=== PATIENT | male | born 1940 | race African-American/Black ===

== ENCOUNTER 2016-05-26 05:07 | Day surgery (SDC) | payer OTHER ==
[~2016-05-26] VITALS: Ht 170.2 cm; Wt 84.4 kg
[2016-05-26 05:59] LABS: BASOPHILS 0.5 % (0.0-2.0); EOSINOPHILS 5.7 % (0-7); HEMOGLOBIN 13.2 g/dL (13.5-17.5); IMMATURE GRANULOCYTES 0.1 % (0-5); LYMPHOCYTES 29.9 % (15-50); MCH 28.4 pg (26.0-34.0); MCHC 33.8 g/dL (31.0-37.0); MCV 84.1 fL (80.0-100.0); MEAN PLATELET VOLUME 10.3 fL (7.4-10.4); NEUTROPHILS 52.8 % (40-80); PLATELET COUNT 278 10x3/uL (130-400); RBC 4.64 10x6/uL (4.20-6.10); RDW 13.4 % (11.5-14.5); WBC 8.7 10x3/uL (4.8-10.8)
[2016-05-26 06:44] LABS: ANION GAP 13.3 mmol/L (8-16); CALCIUM 9.4 mg/dL (8.5-10.1); CARBON DIOXIDE 23.9 mmol/L (21.0-32.0); CREATININE - SERUM 1.8 mg/dL (0.6-1.3); POTASSIUM - SERUM 4.2 mmol/L (3.5-5.1)
[2016-05-26 07:03] VITALS: BP 167/97; Ht 170.2 cm; Wt 84.4 kg
[2016-05-26] MEDS ORDERED: LIPITOR40 MG PO (07:05)
[2016-05-26] MEDS ORDERED: BAYER CHEWABLE81 MG PO (07:05)
[2016-05-26] MEDS ORDERED: HUMULIN 70100 UNIT/1 SC (07:06)
[2016-05-26] MEDS ORDERED: COREG 3.1253.125 MG PO (07:06)
[2016-05-26] MEDS ORDERED: SYNTHROID50 MCG PO (07:06)
[2016-05-26] MEDS ORDERED: LISINOPRIL2.5 MG PO (07:07)
[2016-05-26 07:30] LABS: APTT 30.8 SECONDS (22.8-39.4); INR 1.12 (0.85-1.17); PROTIME 14.3 SECONDS (11.6-15.0)
--- NOTE | 2016-05-26 12:06 | NUR ---
IV DC WITH CATHER TIP INTACT
--- NOTE | 2016-05-26 12:09 | NUR ---
CT SCAN ERIKA DUE TO CR 1.9 PER ARABELLA
--- NOTE | 2016-05-28 09:40 | OP ---
PATIENT NAME: KAYLIE LONG MEDICAL RECORD: [id number] :42 LOCATION:[facility] ADMISSION DATE: SURGEON: GEORGETTE FRANCO MD DATE OF OPERATION: 05/26/2016 PREOPERATIVE DIAGNOSIS: Gangrene, right great toe. POSTOPERATIVE DIAGNOSIS: Gangrene, right great toe with osteomyelitis. PROCEDURE: Partial amputation of right great toe. SURGEON: Georgette Franco MD. FARMWORKER P[employer]LET FARM: None. BLOOD LOSS: Minimal. ANESTHESIA: General. COMPLICATIONS: None. The risks, possible complications and alternatives to procedure were explained to the patient. He elects to proceed. OPERATIVE FINDINGS: Black eschar. I removed the toenail. I removed the eschar. There is underlying soft fragmented bone indicating osteomyelitis. I removed all the osteomyelitic bone and I was able to rongeur back to good healthy bone, so I do not think the patient needs to be on IV antibiotics for osteomyelitis as all that bone has been removed. There was almost no bleeding during the procedure indicating a very poor arterial inflow. The patient is going to undergo bilateral lower extremity arterial duplexes before dismissal today, as well as CTA with runoffs. There was 1 dot of pus that was identified under the black eschar cap. This was cultured. OPERATIVE COURSE: The patient was conveyed to the operating room electively on 05/26/2016. General anesthesia was induced by the anesthesia staff. The right foot was sterilely prepped and draped. The debridement was carried out utilizing scalpel, as well as rongeur. I removed the toenail with a rongeur. I used a scalpel to excise the eschar cap. Soft fragmented bone was identified underneath this with some pus indicating osteomyelitis. This was rongeured back to the DIP joint. I then cauterized the end of the proximal phalanx in order to prevent it from producing synovial fluid. I ensured that all of the fragmented bone had been rongeured. I excised some additional skin. There was very little bleeding. I then divided the flexor tendon. The wound was then packed with saline wet to dry dressing. The patient does not need to see me in the office unless he develops complication related to this operative procedure. I will be rounding out of the skilled nursing and I can see him then on rounds. TRANSINT:[id number] Voice Confirmation ID: [id number] DOCUMENT ID: [id number] OPERATIVE REPORT [id number] KAYLIE LONG ROBERT MD at 0940 CC: GEORGETTE GODOY MD, ISAIAH PULIDO MD, RAYNE GARAY MD and [id number] L DICTATION DATE: 05/26/16 1040 SERVICES EXECUTIVE: 05/26/161911 [facility] 05/26/16 [place] [id number] [place] [id number]
--- NOTE | 2016-05-28 09:40 | HP ---
PATIENT: KAYLIE LONG MEDICAL RECORD: [id number] ACCOUNT: [id number] LOCATION:[facility] : 42 ADMISSION DATE: 05/26/16 HISTORY AND PHYSICAL EXAMINATION CHIEF COMPLAINT: Gangrene, right great toe. HISTORY OF PRESENT ILLNESS: The patient is to undergo debridement of the right great toe. I am going to try to avoid amputation of the right great toe, although this is a possibility. The risks, possible complications and alternatives to procedure were explained to the patient. He elects to proceed. There has been no foul odor. No exudate. No spreading erythema. This is on the tip of his toe and involves the plantar surface of the toe and is dry from eschar. There was no softness. The patient needs an arterial study as well. He will undergo CTA with runoffs well as lower extremity arterial Dopplers with ABIs while here in the hospital as an outpatient. The risks, possible complications and alternatives to procedure were explained to the patient. He elects to proceed. PAST MEDICAL AND SURGICAL HISTORY: 1. Hypotension. 2. Hypertension. 3. Insulin-dependent diabetes mellitus. 4. Hypothyroidism. HOME MEDICINES: Lipitor, Coreg, lisinopril as well as insulin, and levothyroxine. ALLERGIES: No known drug allergies. REVIEW OF SYSTEMS: No CVA or seizures. No renal disease. Positive for hepatitis C. PHYSICAL EXAMINATION: GENERAL: The patient does not appear acutely ill. He does not appear chronically ill. VITAL SIGNS: Reviewed. HEAD: External ears appear normal. EYES: Extraocular movements are intact. NECK: Trachea is midline. CHEST: No intercostal retractions. PULMONARY: Nonlabored, no stridor. ABDOMEN: No peritonitis. EXTREMITIES: Gangrene of the right great toe. BACK: No thoracic kyphosis. LYMPHATICS: No lymphangitic streaking of the exposed extremities. IMPRESSION: Gangrene, right great toe. PLAN: Vascular workup as described above. Debridement of the right great toe. TRANSINT:[id number] Voice Confirmation ID: [id number] DOCUMENT ID: [id number] HISTORY AND PHYSICAL [id number] KAYLIE LONG GEORGETTE RIZO MD at 0940 CC: GEORGETTE GODOY MD, ISAIAH PULIDO MD, RAYNE GARAY MD and [id number] Kearns DICTATION DATE: 05/26/1605 APPLICATIONS ENGINEER MANUFACTURING: 05/26/16 1016 [facility] 05/26/16 [place] [id number] [place] [id number]
== END 2016-05-26 12:15 | disposition home or self-care (01) ==
LOC: D.OPS 05:07
PROVIDERS: Anesthesiology
DX: M86.8X7 Other osteomyelitis, ankle and foot (principal); I96 Gangrene, not elsewhere classified; I95.9 Hypotension, unspecified; I10 Essential (primary) hypertension; E11.9 Type 2 diabetes mellitus without complications; E03.9 Hypothyroidism, unspecified; Z79.4 Long term (current) use of insulin; Z79.899 Other long term (current) drug therapy; B19.20 Unspecified viral hepatitis C without hepatic coma

== ENCOUNTER 2016-06-16 09:47 | Inpatient (IN) | payer MEDICAID ==
[~2016-06-16 09:47] MED LIST: BAYER CHEWABLE81 MG PO; COREG 3.1253.125 MG PO; HUMULIN 70100 UNIT/1 SC; LIPITOR40 MG PO; LISINOPRIL2.5 MG PO; SYNTHROID50 MCG PO
[2016-06-16 10:39] LABS: BASOPHILS 0.2 % (0.0-2.0); EOSINOPHILS 4.8 % (0-7); HEMATOCRIT 32.5 % (42.0-54.0); HEMOGLOBIN 10.5 g/dL (13.5-17.5); IMMATURE GRANULOCYTES 0.3 % (0-5); LYMPHOCYTES 20.3 % (15-50); MCH 27.1 pg (26.0-34.0); MCHC 32.3 g/dL (31.0-37.0); MCV 83.8 fL (80.0-100.0); MONOCYTES 14.3 % (2-11); NEUTROPHILS 60.1 % (40-80); PLATELET COUNT 322 10x3/uL (130-400); RBC 3.88 10x6/uL (4.20-6.10); RDW 13.4 % (11.5-14.5); WBC 10.3 10x3/uL (4.8-10.8)
[2016-06-16 10:50] LABS: ALBUMIN 2.5 g/dL (3.4-5.0); ANION GAP 12.7 mmol/L (8-16); BILIRUBIN - TOTAL 0.36 mg/dL (0.2-1.3); C-REACTIVE PROTEIN 2.9 mg/dL (0.0-0.9); CALCIUM 9.2 mg/dL (8.5-10.1); CARBON DIOXIDE 24.9 mmol/L (21.0-32.0); CREATININE - SERUM 1.6 mg/dL (0.6-1.3); POTASSIUM - SERUM 4.6 mmol/L (3.5-5.1); PROTEIN - SERUM 8.4 g/dL (6.4-8.2)
[2016-06-17 05:30] LABS: BASOPHILS 0.2 % (0.0-2.0); EOSINOPHILS 3.3 % (0-7); HEMATOCRIT 32.3 % (42.0-54.0); HEMOGLOBIN 10.7 g/dL (13.5-17.5); IMMATURE GRANULOCYTES 0.2 % (0-5); MCH 27.3 pg (26.0-34.0); MCHC 33.1 g/dL (31.0-37.0); MCV 82.4 fL (80.0-100.0); MEAN PLATELET VOLUME 9.7 fL (7.4-10.4); NEUTROPHILS 55.3 % (40-80); PLATELET COUNT 367 10x3/uL (130-400); RBC 3.92 10x6/uL (4.20-6.10); RDW 13.3 % (11.5-14.5); WBC 12.1 10x3/uL (4.8-10.8)
[2016-06-17 05:49] LABS: ALBUMIN 2.4 g/dL (3.4-5.0); ANION GAP 13.9 mmol/L (8-16); BILIRUBIN - TOTAL 0.37 mg/dL (0.2-1.3); CALCIUM 9.2 mg/dL (8.5-10.1); CARBON DIOXIDE 25.1 mmol/L (21.0-32.0); CREATININE - SERUM 1.5 mg/dL (0.6-1.3); PROTEIN - SERUM 8.5 g/dL (6.4-8.2); THYROID STIMULATING HORMONE 3.35 uIU/mL (0.36-3.74)
[2016-06-18 06:17] LABS: BASOPHILS 0.2 % (0.0-2.0); EOSINOPHILS 4.7 % (0-7); HEMATOCRIT 33.1 % (42.0-54.0); HEMOGLOBIN 10.9 g/dL (13.5-17.5); IMMATURE GRANULOCYTES 0.4 % (0-5); MCH 27.7 pg (26.0-34.0); MCHC 32.9 g/dL (31.0-37.0); MEAN PLATELET VOLUME 9.9 fL (7.4-10.4); MONOCYTES 13.5 % (2-11); NEUTROPHILS 63.2 % (40-80); PLATELET COUNT 363 10x3/uL (130-400); RBC 3.94 10x6/uL (4.20-6.10); RDW 13.3 % (11.5-14.5); WBC 11.1 10x3/uL (4.8-10.8)
[2016-06-18 06:40] LABS: ALBUMIN 2.4 g/dL (3.4-5.0); BILIRUBIN - TOTAL 0.4 mg/dL (0.2-1.3); CREATININE - SERUM 1.8 mg/dL (0.6-1.3); PROTEIN - SERUM 8.7 g/dL (6.4-8.2)
[2016-06-18 07:45] LABS: APTT 40.2 SECONDS (22.8-39.4); INR 1.21 (0.85-1.17); PROTIME 15.2 SECONDS (11.6-15.0)
[2016-06-19 04:56] LABS: BASOPHILS 0.2 % (0-2); EOSINOPHILS 5.2 % (0-7); HEMOGLOBIN 9.9 g/dL (13.5-17.5); IMMATURE GRANULOCYTES 0.2 % (0-5); MCH 27.7 pg (26.0-34.0); MCV 83.8 fL (80.0-100.0); MEAN PLATELET VOLUME 9.6 fL (7.4-10.4); MONOCYTES 14.7 % (2-11); NEUTROPHILS 59.7 % (40-80); PLATELET COUNT 313 10x3/uL (130-400); RBC 3.58 10x6/uL (4.20-6.10); RDW 13.5 % (11.5-14.5); WBC 12.3 10x3/uL (4.8-10.8)
[2016-06-19 05:26] LABS: ALBUMIN 2.2 g/dL (3.4-5.0); ANION GAP 8.9 mmol/L (8-16); BILIRUBIN - TOTAL 0.5 mg/dL (0.2-1.3); CALCIUM 9.3 mg/dL (8.5-10.1); CARBON DIOXIDE 31.5 mmol/L (21.0-32.0); CREATININE - SERUM 1.8 mg/dL (0.6-1.3); POTASSIUM - SERUM 4.4 mmol/L (3.5-5.1); PROTEIN - SERUM 8.1 g/dL (6.4-8.2)
[2016-06-20 04:36] LABS: BASOPHILS 0.2 % (0-2); EOSINOPHILS 3.7 % (0-7); HEMATOCRIT 28.8 % (42.0-54.0); HEMOGLOBIN 9.3 g/dL (13.5-17.5); IMMATURE GRANULOCYTES 0.4 % (0-5); LYMPHOCYTES 21.8 % (15-50); MCH 27.1 pg (26.0-34.0); MCHC 32.3 g/dL (31.0-37.0); MEAN PLATELET VOLUME 9.5 fL (7.4-10.4); MONOCYTES 15.3 % (2-11); NEUTROPHILS 58.6 % (40-80); PLATELET COUNT 298 10x3/uL (130-400); RBC 3.43 10x6/uL (4.20-6.10); RDW 13.7 % (11.5-14.5); WBC 10.7 10x3/uL (4.8-10.8)
[2016-06-20 05:17] LABS: ANION GAP 12.3 mmol/L (8-16); BILIRUBIN - TOTAL 0.38 mg/dL (0.2-1.3); CALCIUM 8.2 mg/dL (8.5-10.1); CARBON DIOXIDE 25.5 mmol/L (21.0-32.0); POTASSIUM - SERUM 3.8 mmol/L (3.5-5.1); PROTEIN - SERUM 7.7 g/dL (6.4-8.2)
[2016-06-21 06:01] LABS: BASOPHILS 0.2 % (0-2); HEMATOCRIT 28.3 % (42.0-54.0); HEMOGLOBIN 9.1 g/dL (13.5-17.5); IMMATURE GRANULOCYTES 0.2 % (0-5); LYMPHOCYTES 23.7 % (15-50); MCHC 32.2 g/dL (31.0-37.0); MEAN PLATELET VOLUME 9.7 fL (7.4-10.4); MONOCYTES 14.7 % (2-11); NEUTROPHILS 55.2 % (40-80); PLATELET COUNT 321 10x3/uL (130-400); RBC 3.37 10x6/uL (4.20-6.10); RDW 13.6 % (11.5-14.5); WBC 9.7 10x3/uL (4.8-10.8)
[2016-06-21 06:09] LABS: HEMOGLOBIN A1C 9.1 % (4.8-6.0)
[2016-06-21 07:00] LABS: ALBUMIN 2.1 g/dL (3.4-5.0); ANION GAP 13.6 mmol/L (8-16); BILIRUBIN - TOTAL 0.36 mg/dL (0.2-1.3); CALCIUM 8.7 mg/dL (8.5-10.1); CREATININE - SERUM 1.8 mg/dL (0.6-1.3); POTASSIUM - SERUM 3.6 mmol/L (3.5-5.1); VANCOMYCIN - RANDOM 20.8 ug/mL (10.0-20.0)
[2016-06-21 07:54] LABS: APPEARANCE CLEAR (CLEAR); BACTERIA NONE SEEN /hpf (NONE SEEN); BILIRUBIN NEGATIVE (NEGATIVE); COLOR YELLOW (YELLOW); EPITHELIAL CELLS RARE /hpf (0-5); GLUCOSE 250 mg/dL (NEGATIVE); KETONE NEGATIVE (NEGATIVE); LEUKOCYTE ESTERASE NEGATIVE (NEGATIVE); NITRITE NEGATIVE (NEGATIVE); PROTEIN TRACE mg/dL (NEGATIVE); RED CELLS - URINE 0-5 /hpf (0-5); SPECIFIC GRAVITY 1.015 (1.005-1.020); UROBILINOGEN NORMAL (NORMAL); WHITE CELLS - URINE RARE /hpf (0-5)
[2016-06-22] MEDS ORDERED: MAXIPIME 2 GM/D52 G1 IV (15:04)
[2016-06-22] MEDS ORDERED: HYDROCODON-ACE1 EAC7 PO (15:05)
[2016-06-23] MEDS ORDERED: PLAVIX75 MG PO (07:53)
[2016-06-23] MEDS ORDERED: PROBIOTIC1 EAC1 PO (09:30)
[2016-06-24 16:15] LABS: AEROBE ID Final report (())
== END 2016-06-23 16:42 | DRG 504 ==
LOC: D.ER 09:47 → D.MS 12:07
PROVIDERS: Emergency Medicine; Family Medicine; Orthopaedic Surgery; Radiology Diagnostic Radiology; Surgery; ADMIT Surgery
PROC: 0Y6P0Z0 Detachment at Right 1st Toe, Complete, Open Approach (ICD-10-PCS; principal; 2016-06-16)
PROC: 047N3Z1 Dilation of Left Popliteal Artery using Drug-Coated Balloon, Percutaneous Approach (ICD-10-PCS; 2016-06-18)
PROC: 047L3Z1 Dilation of Left Femoral Artery using Drug-Coated Balloon, Percutaneous Approach (ICD-10-PCS; 2016-06-18)
PROC: 047D3EZ Dilation of Left Common Iliac Artery with Two Intraluminal Devices, Percutaneous Approach (ICD-10-PCS; 2016-06-18)
PROC: B41G1ZZ Fluoroscopy of Left Lower Extremity Arteries using Low Osmolar Contrast (ICD-10-PCS; 2016-06-18)
DX: T87.43 Infection of amputation stump, right lower extremity (principal); M86.9 Osteomyelitis, unspecified; N17.9 Acute kidney failure, unspecified; D62 Acute posthemorrhagic anemia; L03.031 Cellulitis of right toe; E11.69 Type 2 diabetes mellitus with other specified complication; E11.65 Type 2 diabetes mellitus with hyperglycemia; E11.40 Type 2 diabetes mellitus with diabetic neuropathy, unspecified; I73.9 Peripheral vascular disease, unspecified; K75.9 Inflammatory liver disease, unspecified; I25.10 Atherosclerotic heart disease of native coronary artery without angina pectoris; E03.9 Hypothyroidism, unspecified; Z86.11 Personal history of tuberculosis; I10 Essential (primary) hypertension

== ENCOUNTER 2016-09-14 13:44 | Inpatient (IN) | payer MEDICAID ==
[~2016-09-14] VITALS: Ht 170.2 cm; Wt 81.6 kg
--- NOTE | ~2016-09-14 | HEMODYNAMI ---
PATIENT:KAYLIE LONG MEDICAL RECORD: [id number] : 44 LOCATION:[facility] D.2225 ADMISSION DATE: 09/14/16 Generatedon:09/15/201611:04 Patient name: KAYLIE LONG Patient #: [id number] SSN: DO B: 1940 Date of study: 09/15/2016 Page: Of Hemodynamic Procedure Report Patient Data Patient Demographics Procedure consent was obtained First Name: KAYLIE Gender: Male Last Name: ETHAN : 1940 [facility] Initial: J Age: 76 year(s) Patient #: [id number] Race: Black Additional ID: [id number] Contact details [address]: [address] [place] [address] State: [place] City: [place] Zip code: [address] Past Medical History Allergies: No known allergies Admission Admission Data Admission Date: 09/14/2016 Admission Time: 14:17 Room #: D.2225 Weight (lbs.): 180 Weight (kg.): 81.65 Procedure Procedure Types Cath Procedure Peripheral Cath Diagnostic Procedure Cath Peripheral Abd/Extremity Extremities Bilat Lower Extremity Procedure Description Procedure Date Procedure Date: 09/15/2016 Procedure Start Time: 9:18 Procedure Staff Name Function Martha Ocampo RT Maintenance Porter Martha Ocampo RT Monitor Jesus Ferraro RT Scrub Cuate Grande MD Performing Physician Haylee Montano RN Nurse Procedure Data Cath Procedure Fluoroscopy Diagnostic fluoroscopy Total fluoroscopy Time: time: 11.3 min 11.3 min Diagnostic fluoroscopy Total fluoroscopy dose: 649 dose: 649 mGy mGy Contrast Material Contrast Material Type Amount (ml) Isovue 300 145 Entry Location Entry Primary Successful Side Size Upsize Upsize Entry Closure Succ essful Closure Location (Fr) 1 (Fr) 2 (Fr) Remarks Device Remarks Femoral Left Angio-VIP artery 6Fr Diagnostic catheters Device Type Used For End Catheter Placement Merit ULTRA BOLUS FLUSH 5Fr 65CM catheter Procedure Medications Medication Administration Route Dosage Fentanyl I.V. 50 mcg Versed I.V. 1 mg Fentanyl I.V. 50 mcg Versed I.V. 1 mg Fentanyl I.V. 50 mcg Fentanyl I.V. 50 mcg unlisted medication I.V. g Hemodynamics Rest Heart Rate: 95 (bpm) Snapshots Pre Cath Intra NCS Post Cath Vital Signs Time Heart Resp SPO2 NIBP (mmHg) Rhythm Pain Sedation Rate (ipm) (%) Status Level (bpm) 9:15:56 92 19 95 190/88(148) NSR 0 (11) 10(A) , No pain 9:20:24 92 19 100 184/84(134) NSR 0 (11) 10(A) , No pain 9:24:51 93 20 100 182/97(132) NSR 0 (11) 10(A) , No pain 9:29:13 93 19 100 165/83(120) NSR 0 (11) 10(A) , No pain 9:33:35 91 17 100 168/83(122) NSR 0 (11) 10(A) , No pain 9:37:57 95 18 100 187/93(144) NSR 0 (11) 9(A) , No pain 9:42:24 91 20 100 164/79(120) NSR 0 (11) 9(A) , No pain 9:46:46 92 19 99 163/75(119) NSR 0 (11) 9(A) , No pain 9:51:04 91 17 98 150/78(114) NSR 0 (11) 9(A) , No pain 9:56:07 90 14 100 170/81(125) NSR 0 (11) 10(A) , No pain 10:00:33 93 16 97 176/85(131) NSR 0 (11) 10(A) , No pain 10:04:59 91 16 96 184/92(146) NSR 0 (11) 10(A) , No pain 10:09:30 92 18 98 199/90(140) NSR 0 (11) 10(A) , No pain 10:14:00 91 18 99 200/97(144) NSR 0 (11) 10(A) , No pain 10:18:31 92 17 100 198/90(142) NSR 0 (11) 10(A) , No pain 10:22:53 90 13 100 170/83(127) NSR 0 (11) 10(A) , No pain 10:27:11 90 14 100 158/83(120) NSR 0 (11) 10(A) , No pain Medications Time Medication Route Dose Verified Delivered Reason Notes Effective ness by by 9:25:23 Fentanyl I.V. 50 Haylee Haylee for mcg Dusty Dusty sedation RN RN 9:25:45 Versed I.V. 1 mg Haylee Haylee for Dusty Dusty sedation RN RN 9:30:20 Zosyn I.V. g Haylee Haylee antibiotic Dusty Dusty RN RN 9:34:00 Fentanyl I.V. 50 Haylee Haylee for mcg Dusty Dusty sedation RN RN 9:34:15 Versed I.V. 1 mg Haylee Haylee for Dusty Dusty sedation RN RN 10:10:52 Fentanyl I.V. 50 Haylee Haylee for mcg Dusty Dusty sedation RN RN 10:15:47 Fentanyl I.V. 50 Haylee Haylee for mcg Dusty Dusty sedation RN sander wooden pencils Log Time Note 8:45:08 Patient Weight : 180 kg 8:48:40 Time tracking: Regular hours 8:49:14 Plan of Care:Hemodynamics will remain stable., Cardiac rhythm will remain stable., Comfort level will be maintained., Respiratory function will remain adequate., Patient/ family verbilizes understanding of procedure., Procedure tolerated without complication., Recovers from procedure without complications.. 8:49:27 Patient received from Outpatients to IR Alert and oriented. Tansferred to table in Supine position. 8:49:45 Signed procedure consent form obtained from patient. 8:49:49 ECG and BP/O2 sat monitors applied to patient. 8:50:04 H&P Date Dictated: 09/15/2016 Within 30 days and on chart.. 8:50:17 Pre-procedure instructions explained to patient. 8:50:18 Pre-op teaching completed and patient verbalized understanding. 8:50:38 Family unavailable. 8:50:41 Patient NPO since Midnight. 8:50:53 Patient allergic to No known allergies 8:51:02 Is the patient allergic to Iodine/contrast media? No. 8:51:05 Is patient on blood thinner?Yes 8:52:45 Patient diabetic? Yes. 8:52:48 If diabetic: On Metformin? No 8:52:49 - 8:52:51 ----Pre-sedation anethsthesia assessment.---- 8:52:55 Previous problem with sedation/anesthesia? No ? 8:52:58 Snore? Yes 8:53:09 Sleep apnea? No 8:53:14 Deviated septum? No 8:53:17 Opens mouth fully? Yes 8:53:19 Sticks out tongue? Yes 8:53:22 Airway obstruction? No ? 8:53:26 Dentures? No ? 8:54:32 IV patent on arrival in right forearm with 0.9% NaCl at KVO. 8:54:56 Left groin area was prepped with chlora-prep and draped in sterile fashion 8:55:01 - 8:55:05 Use device set IR Diagnostic 8:55:07 Sterile Angiographic Pack opened to sterile field. 8:55:08 Bag Decanter opened to sterile field. 8:55:09 Acist Manifold opened to sterile field. 8:55:10 Acist Hand Control opened to sterile field. 8:55:11 Acist Syringe opened to sterile field. 8:55:28 PackLink DOC .035 guide wire opened to sterile field. 8:55:29 PERCUTANEOUS ENTRY 19GA needle opened to sterile field. 8:55:30 Terumo 5Fr Mills Sheath opened to sterile field. 9:14:26 TUBING, CONTRAST INJCTN HI PRES opened to sterile field. 9:14:30 A StreamLink Software ULTRA BOLUS FLUSH 5Fr 65CM catheter was advanced over the wire and used for . 9:14:35 - :14:37 Vital chart was started 9:14:38 Baseline sample Acquired. ::39 Full Disclosure recording started 9:14:42 - 9:14:47 Alarms reviewed by Elliot Vu :14:48 Sharps counted by scrub and verified by RQasimNQasim 9:14:49 - 9:14:52 Physician arrived 9:15:24 --------ALL STOP TIME OUT------ :15:25 Final Timeout: patient, procedure, and site verified with staff and physician. All members of the team are in agreement. 9:15:29 Physical assessment completed. ASA score P 3 - A patient with severe systemic disease as per Cuate Grande MD. :15:34 Sedation plan: IV Moderate Sedation Versed, Fentanyl :18:33 Procedure started. 9:18:58 Local anesthetic to left femerol artery with Lidocaine 1% by Cuate Grande MD.INITIAL ACCESS ONLY 9:21:06 Pre procedure: right dorsailis pedis pulse Doppler 9::15 Pre procedure: left dorsailis pedis pulse Doppler ::19 Pre procedure: right posterior tibial pulse Doppler 9::24 Pre procedure: left posterior tibial pulse Doppler 9:21:26 - 9:25:23 Fentanyl 50 mcg I.V. was administered by Haylee Montano RN; for sedation; 9:25:45 Versed 1 mg I.V. was administered by Haylee Montano RN; for sedation; 9:28:09 Terumo ANGLE 180L glide wire opened to sterile field. 9:28:09 Terumo TORQUE DEVICE PLASTIC .038 opened to sterile field. 9:30:20 Zosyn g I.V. was administered by Haylee Montano RN; antibiotic; 9:34:00 Fentanyl 50 mcg I.V. was administered by Haylee Montano RN; for sedation; 9:34:15 Versed 1 mg I.V. was administered by Haylee Montano RN; for sedation; 9:41:18 Cook NORIEGA 260 guide wire opened to sterile field. 9:41:51 Merit BasixCompak Inflation Kit opened to sterile field. 9:42:41 Terumo 6Fr Mills Destination Sheath opened to sterile field. 9:45:50 Terumo ANGLE 260cm glide wire opened to sterile field. 9:50:27 Inflation number: 1 A IN.PACT Admiral 6.0 x 40 x 135 DCB Balloon was prepped and advanced across the Undefined1, then inflated to 8 BERNY for 3:03 (min:sec). 10:01:50 EV3 NITINOL .018 300 2CM guide wire opened to sterile field. 10:05:32 Inflation number: 1 A Saber 3.5 x 2 x 150 balloon was prepped and advanced across the Undefined2, then inflated to 14 BERNY for 0:09 (min:sec). 10:10:52 Fentanyl 50 mcg I.V. was administered by Haylee Montano RN; for sedation; 10:15:47 Fentanyl 50 mcg I.V. was administered by Haylee Montano RN; for sedation; 10:19:07 ANGIOSEAL-VIP PLUS 6 FR opened to sterile field. 10:21:33 Sheath removed intact; hemostasis achieved with Angio-VIP 6Fr to the Left Femoral artery. 10:21:33 A sheath was inserted into the Left Femoral artery 10:21:58 Procedure ended.(Physican Out) 10:24:27 Fluoroscopy time 11.30 minutes. 10:24:32 Fluoroscopy dose: 649 mGy 10:24:32 Flurop Dose total: 649 10:24:38 Contrast amount:Isovue 300 145ml. 10:24:40 Sharps counted by scrub and verified by R.N. 10:24:42 Procedure and supply charges have been captured, reviewed, submitted an d are correct. 10:27:32 Vital chart was stopped 10:27:35 Full Disclosure recording stopped Intervention Summary Intervention Notes Time ActionType Lesion and Equipment Action# Pressure Duration Attributes Used 9:50:27 Inflate Undefined1 IN.PACT 1 8 03:03 balloon Admiral 6.0 x 40 x 135 DCB Balloon 10:05:32 Inflate Undefined2 Saber 3.5 1 14 00:09 balloon x 2 x 150 balloon Device Usage Item Name Manufacture Quantity Catalog Number Hospital Part Current Min imal Lot# / Charge Number Stock Stock Serial# Code Sterile Cardinal 1 [id number] 5 Angiographic Health Pack Bag Decanter Microtek 1 2002S [id number] 07530 040675 5 Medical Inc. Acist Acist 1 07892 439500 227384 508465 5 Manifold Medical Systems Inc Acist Hand Acist 1 08740 158115 929309 519096 5 Control Medical Systems Inc Acist Syringe Acist 1 80034 834510 173853 501261 20 Medical Systems Inc Cook DOC .035 Cook Medical 1 W99942 167637 781693 5 [id number] guide wire PERCUTANEOUS Cook Medical 1 O89404 215731 003466 5 [id number] ENTRY 19GA needle Terumo 5Fr Terumo 1 NWS607 586158 692310 140331 40 Mills Sheath TUBING, Merit 1 [id number] 740371 392398 825401 5 CONTRAST Medical INJCTN HI PRES Merit ULTRA Merit 1 [id number] 591419 285653 5 BOLUS FLUSH Medical 5Fr 65CM catheter Terumo TORQUE Frederick 1 TD01 160885 293463 142259 5 DEVICE Scientific PLASTIC .038 Terumo ANGLE Terumo 1 VC2499 853760 422042 343731 5 180L glide wire Cook NORIEGA Cook Medical 1 T16894 891694 431340 5 0555108 260 guide wire Merit Merit 1 BS3199 726588 029685 041507 15 logolineupixYogiPlay Medical Inflation Kit Terumo 6Fr Terumo 1 RSR01 640126 85413 237413 5 Mills Destination Sheath Terumo ANGLE Terumo 1 PI2079 400608 286383 036284 5 260cm glide wire IN.PACT Medtronic 1 [id number] 120297 407050 195544 5 [id number] Admiral 6.0 x 40 x 135 DCB Balloon EV3 NITINOL Ev3 1 [id number] 186884 902896 5 .018 300 2CM guide wire Saber 3.5 x 2 Cardinal 1 [id number] 052401 498517 5 x 150 balloon Health [facility] St Basilio 1 589455 061419 380780 5 [id number] PLUS 6 FR Signature Audit [place] Stage Time Signature Unsigned Intra-Procedure 09/15/2016 Martha Ocampo RT(R) 10:27:29 AM RT(R) 09/15/2016 11:03:53 AM Intra-Procedure 09/15/2016 Martha Ocampo 11:04:46 AM RT(R) Signatures Monitor : Martha Ocampo RT Signature : Date : Time : [place] [id number] [place] [address]
[~2016-09-14 13:44] MED LIST changes: +HYDROCODON-ACE1 EAC7 PO; +MAXIPIME 2 GM/D52 G1 IV; +PLAVIX75 MG PO; +PROBIOTIC1 EAC1 PO
--- NOTE | 2016-09-14 16:00 | NUR ---
PT TO ROOM 2225 FROM .GUARDS X2 AT SIDE.PT WITHOUT DISTRESS. ASSESSMENT PER BEA ZEPEDA RN.DRESSING PLACED BACK ON RIGHT FOOT USING ASEPTIC TECH.BLADDER SCAN PER BEA ZEPEDA RN,0 RESIDUAL NOTED.ORIENTATION TO ROOM.CALL LIGHT IN REACH.
[2016-09-14 16:17] VITALS: BP 166/75; BMI 28.2
[2016-09-14 17:54] LABS: BASOPHILS 0.3 % (0-2); EOSINOPHILS 2.5 % (0-7); HEMATOCRIT 34.9 % (42.0-54.0); HEMOGLOBIN 11.5 g/dL (13.5-17.5); IMMATURE GRANULOCYTES 0.2 % (0-5); LYMPHOCYTES 21.2 % (15-50); MCH 26.9 pg (26.0-34.0); MCV 81.5 fL (80.0-100.0); MEAN PLATELET VOLUME 9.7 fL (7.4-10.4); MONOCYTES 9.6 % (2-11); NEUTROPHILS 66.2 % (40-80); RBC 4.28 10x6/uL (4.20-6.10); RDW 14.6 % (11.5-14.5); WBC 13.8 10x3/uL (4.8-10.8)
[2016-09-14 18:04] LABS: PLATELET COUNT 450 10x3/uL (130-400)
[2016-09-14 18:25] LABS: ANION GAP 15.5 mmol/L (8-16); C-REACTIVE PROTEIN 0.7 mg/dL (0.0-0.9); CARBON DIOXIDE 26.6 mmol/L (21.0-32.0); CREATININE - SERUM 1.3 mg/dL (0.6-1.3); POTASSIUM - SERUM 4.1 mmol/L (3.5-5.1)
[2016-09-14 18:58] LABS: ERYTHROCYTE SEDIMENTATION RATE 30 mm/hr (0-20)
[2016-09-14 19:00] VITALS: BP 159/59
--- NOTE | 2016-09-14 19:36 | NUR ---
REMAINS WITHOUT NEEDS,WITHOUT DISTRESS.GUARDS AT BEDSIDE.CONT PLAN OF CARE
--- NOTE | 2016-09-14 20:00 | NUR ---
ASSESSMENT PER FLOWSHEET. IV PATENT RT FOREARM OF 1/2NS AT 75CC'S/HR. RT GREAT TOE OLD AMPUTEE. SECOND TO ON RT FOOT BLACK ESCHAR. GUARD AT BEDSIDE. LEFT FOOT SHACKLED TO BED. SR UP X2 CALL LIGHT WITHIN REACH.
--- NOTE | 2016-09-14 21:00 | NUR ---
AFAC=540. HUMALOG INSULIN 8UNITS GIVEN SUBC PER S/S.
[2016-09-15] VITALS (11 sets, daily range): BP systolic 135–184; BP diastolic 62–92; Ht 170.2 cm; Wt 81.6 kg
--- NOTE | 2016-09-15 | NUR ---
NPO FOR POSSIBLE IR POCEDURE.
--- NOTE | 2016-09-15 03:00 | NUR ---
EYES CLOSED RESPIRATIONS WITH EASE AND UNLABORED. VOIDS WELL IN URINAL.
--- NOTE | 2016-09-15 06:00 | NUR ---
EFSO=238. S/S HELD PT NPO FOR A PROCEDURE IN RADIOLOGY.
[2016-09-15 06:16] LABS: BASOPHILS 0.3 % (0-2); EOSINOPHILS 2.8 % (0-7); HEMATOCRIT 34.2 % (42.0-54.0); IMMATURE GRANULOCYTES 0.3 % (0-5); LYMPHOCYTES 22.7 % (15-50); MCH 26.7 pg (26.0-34.0); MCHC 32.2 g/dL (31.0-37.0); MEAN PLATELET VOLUME 9.5 fL (7.4-10.4); MONOCYTES 9.8 % (2-11); NEUTROPHILS 64.1 % (40-80); PLATELET COUNT 445 10x3/uL (130-400); RBC 4.12 10x6/uL (4.20-6.10); RDW 14.8 % (11.5-14.5); WBC 10.5 10x3/uL (4.8-10.8)
[2016-09-15 06:36] LABS: INR 1.09 (0.85-1.17)
[2016-09-15 06:37] LABS: APTT 33.4 SECONDS (22.8-39.4)
[2016-09-15 06:55] LABS: ANION GAP 17.8 mmol/L (8-16); CALCIUM 9.8 mg/dL (8.5-10.1); CARBON DIOXIDE 25.2 mmol/L (21.0-32.0); CREATININE - SERUM 1.3 mg/dL (0.6-1.3)
--- NOTE | 2016-09-15 07:30 | NUR ---
ASSESSMENT PER FLOW SHEET.PT WITHOUT DISTRESS.DENIES NEEDS AT PRESENT.DRESSING IN PLACE ON RIGHT FOOT AND IS WITHOUT DRAINAGE.NPO FOR PROCEDURE.MONITOR FOR NEEDS.GUARD AT BEDSIDE.CALL LIGHT IN REACH
--- NOTE | 2016-09-15 08:40 | NUR ---
TO IR VIA BED
--- NOTE | 2016-09-15 09:08 | NUR ---
Patient Name: KAYLIE LONG Admission Status: Elective Accout number: [id number] Admission Date: 09-14-2016 : 1940 Admission Diagnosis: Attending: MARILYN Current LOS: 1 Anticipated DC Date: 09-20-2016 Planned Disposition: Court\Law Enforcement Primary Insurance: MEDICAID [facility] PENDING Discharge Planning Comments: PATIENT IS FROM [facility] AND WILL RETURN THERE ON DISCHARGE. Bunk Assembler: Catrina Antonio Preadmission Environment Other 0 * Other Environment [facility] 0 * Additional services required to return to the preadmission environment? Yes 0 * Can the patient safely return to the preadmission environment? Yes 0 * Has this patient been hospitalized within the prior 30 days at any hospital? No 0 Grand Total: 0
--- NOTE | 2016-09-15 11:00 | NUR ---
BACK FROM IR.DRESSING LEFT GROIN CLEAN,DRY AND INTACT.PT DENIES PAIN.GUARD AT BEDSIDE.CALL LIGHT IN REACH.
--- NOTE | 2016-09-15 13:56 | NUR ---
DRESSING REMAINS CLEAN AND DRY.PT IS EATING LUNCH.INSULIN ORDERED PER MAR
--- NOTE | 2016-09-15 20:00 | NUR ---
ASSESSMENT PER FLOWSHEET. IV PATENT RT FOREARM OF 1/2NS AT 75CC'S/HR. SITE CLEAR. RT SECOND TOE WITH BLACK ESCHAR. DRESSING TO LEFT GROIN PROCEDURE SITE C/D/I.BULL CHAIN OPERATOR AT BEDSIDE. SR UYP X2 CALL LIGHT WITHIN REACH.
--- NOTE | 2016-09-15 21:30 | NUR ---
MEDS GIVEN PER MAR. MRLU=035. NO COVERAGE NEEDED.
[2016-09-16] VITALS: BP 157/68
--- NOTE | 2016-09-16 | NUR ---
EYES CLOSED RESPIRATIONS WITH EASE AND UNLABORED. NPO FOR SURGERY IN AM.
[2016-09-16 04:00] VITALS: BP 135/65
[2016-09-16 05:51] LABS: BASOPHILS 0.4 % (0-2); EOSINOPHILS 4.5 % (0-7); HEMATOCRIT 32.5 % (42.0-54.0); HEMOGLOBIN 10.5 g/dL (13.5-17.5); IMMATURE GRANULOCYTES 0.3 % (0-5); LYMPHOCYTES 24.2 % (15-50); MCH 26.8 pg (26.0-34.0); MCHC 32.3 g/dL (31.0-37.0); MCV 82.9 fL (80.0-100.0); MEAN PLATELET VOLUME 9.9 fL (7.4-10.4); MONOCYTES 10.9 % (2-11); NEUTROPHILS 59.7 % (40-80); PLATELET COUNT 395 10x3/uL (130-400); RBC 3.92 10x6/uL (4.20-6.10); WBC 10.5 10x3/uL (4.8-10.8)
[2016-09-16 06:10] LABS: ANION GAP 16.8 mmol/L (8-16); CALCIUM 9.1 mg/dL (8.5-10.1); CARBON DIOXIDE 22.3 mmol/L (21.0-32.0); CREATININE - SERUM 1.5 mg/dL (0.6-1.3); POTASSIUM - SERUM 4.1 mmol/L (3.5-5.1)
--- NOTE | 2016-09-16 08:00 | NUR ---
ASSESSMENT COMPLETE. IV TO R FA PATENT. / NS INFUSING AT 75 CC/HR VIA PUMP. DRESSING INTACT TO R FOOT. NPO FOR SURGERY TODAY. GUARD AT BEDSIDE. DENIES ANY NEEDS AT THIS TIME.
[2016-09-16 08:15] VITALS: BP 133/68
[2016-09-16 11:41] VITALS: BP 175/75
--- NOTE | 2016-09-16 12:00 | NUR ---
AWAITING SURGERY. GUARD AT BEDSIDE.
[2016-09-16 16:00] VITALS: BP 120/53
--- NOTE | 2016-09-16 17:00 | NUR ---
DR OSBORNE BY TO SEE PATIENT. SURGERY IS RESCHEDULED FOR TOMORROW. PATIENT AWARE.
[2016-09-16 22:49] VITALS: BP 150/93
--- NOTE | 2016-09-17 04:27 | NUR ---
PT SLEEPING. RESP EVEN, UNLABORED. NO DISTRESS NOTED. CONTINUE SMELTER OPERATOR'S PLAN OF CARE. GUARD AT BEDSIDE.
[2016-09-17 06:20] LABS: BASOPHILS 0.3 % (0-2); EOSINOPHILS 5.3 % (0-7); HEMATOCRIT 34.4 % (42.0-54.0); IMMATURE GRANULOCYTES 0.3 % (0-5); MCH 26.5 pg (26.0-34.0); MCV 82.9 fL (80.0-100.0); MEAN PLATELET VOLUME 9.5 fL (7.4-10.4); MONOCYTES 11.5 % (2-11); NEUTROPHILS 58.6 % (40-80); PLATELET COUNT 382 10x3/uL (130-400); RBC 4.15 10x6/uL (4.20-6.10); RDW 15.3 % (11.5-14.5); WBC 9.8 10x3/uL (4.8-10.8)
[2016-09-17 06:45] LABS: ANION GAP 14.3 mmol/L (8-16); CALCIUM 9.1 mg/dL (8.5-10.1); CARBON DIOXIDE 26.4 mmol/L (21.0-32.0); CREATININE - SERUM 1.7 mg/dL (0.6-1.3); POTASSIUM - SERUM 3.7 mmol/L (3.5-5.1)
--- NOTE | 2016-09-17 08:10 | NUR ---
ASSESSMENT COMPLETE. IV TO R FA PATENT. /2 NS INFUSING AT 75 CC/HR VIA PUMP. DRESSING INTACT TO L GROIN. DRESSING INTACT TO R FOOT. R 2ND TOE DARK IN COLOR. COMPLAINING OF NUMBNESS TO R HAND. GUARD AT BEDSIDE.
--- NOTE | 2016-09-17 08:25 | NUR ---
OFF FLOOR TO OR VIA BED.
[2016-09-17 12:25] VITALS: BP 191/85
--- NOTE | 2016-09-17 12:25 | NUR ---
RETURNED TO ROOM FROM RECOVERY ROOM. LULU WRAP DRESSING INTACT TO R FOOT. GUARD AT BEDSIDE.
--- NOTE | 2016-09-17 13:52 | NUR ---
Nutrition Follow Up: Chart reviewed. Pt is s/p BHAVESH. Meds noted. Labs reviewed. No BM since admit. Noted regular diet has been resumed. Rec continue current diet as tolerated. RD following.
--- NOTE | 2016-09-17 15:47 | NUR ---
NO CHANGES NOTED AT PRESENT.
[2016-09-17 16:43] VITALS: BP 138/59
--- NOTE | 2016-09-17 17:25 | NUR ---
NO CHANGES NOTED AT PRESENT.
[2016-09-17 20:00] VITALS: BP 160/71
[2016-09-18] VITALS: BP 139/71
[2016-09-18 04:00] VITALS: BP 167/76
--- NOTE | 2016-09-18 05:10 | NUR ---
ASSESSED, PT IS AWAKE WATCHING TV. THE GUARD IS AT THE BEDSIDE. NO RESPIRATORY DISTRESS NOTED AND NO PROBLEMS VOICED. THE BED IS LOW, RAILS UP X'S 2 WITH THE CALL LIGHT AT HAND.
[2016-09-18 06:23] LABS: BASOPHILS 0.1 % (0-2); EOSINOPHILS 3.5 % (0-7); HEMATOCRIT 31.1 % (42.0-54.0); HEMOGLOBIN 10.1 g/dL (13.5-17.5); IMMATURE GRANULOCYTES 0.4 % (0-5); LYMPHOCYTES 12.3 % (15-50); MCH 26.7 pg (26.0-34.0); MCHC 32.5 g/dL (31.0-37.0); MCV 82.3 fL (80.0-100.0); MEAN PLATELET VOLUME 9.3 fL (7.4-10.4); MONOCYTES 9.9 % (2-11); NEUTROPHILS 73.8 % (40-80); PLATELET COUNT 380 10x3/uL (130-400); RBC 3.78 10x6/uL (4.20-6.10); RDW 15.2 % (11.5-14.5)
[2016-09-18 06:33] LABS: WBC 13.8 10x3/uL (4.8-10.8)
[2016-09-18 06:41] LABS: ANION GAP 12.8 mmol/L (8-16); CALCIUM 8.9 mg/dL (8.5-10.1); CARBON DIOXIDE 23.9 mmol/L (21.0-32.0); CREATININE - SERUM 1.7 mg/dL (0.6-1.3); POTASSIUM - SERUM 3.7 mmol/L (3.5-5.1)
--- NOTE | 2016-09-18 07:30 | NUR ---
RECIEVED PT DURING WALKING ROUNDS. PT RESTING IN BED WITH COMPLAINTS OF PAIN OF A 6 ON A SCALE OF 1-10. NO MEDICATION TO BE GIVEN AT THIS TIME. ASSESSMENT DONE PER FLOWSHEET. BED IN LOW POSITION AND CALL LIGHT WITHIN REACH. WILL CONTINUE TO MONITOR.
[2016-09-18 09:13] VITALS: BP 164/79
--- NOTE | 2016-09-18 11:30 | NUR ---
PAIN MEDICATION GIVEN AT THIS TIME FOR PAIN OF A 9 ON A SCALE OF 1-10. IV TUBING CHANGED PER PROTOCOL. BED IN LOW POSITION AND CALL LIGHT WITHIN REACH. WILL CONTINUE TO MONITOR.
[2016-09-18 13:11] VITALS: BP 159/76
[2016-09-18 18:05] VITALS: BP 161/71
[2016-09-18 18:28] LABS: ALBUMIN 2.4 g/dL (3.4-5.0); ANION GAP 13.6 mmol/L (8-16); BILIRUBIN - TOTAL 0.42 mg/dL (0.2-1.3); CALCIUM 8.3 mg/dL (8.5-10.1); CARBON DIOXIDE 22.8 mmol/L (21.0-32.0); CREATININE - SERUM 1.8 mg/dL (0.6-1.3); POTASSIUM - SERUM 3.4 mmol/L (3.5-5.1); PROTEIN - SERUM 7.5 g/dL (6.4-8.2)
[2016-09-18 20:00] VITALS: BP 130/65
[2016-09-19] VITALS: BP 91/61
[2016-09-19 04:00] VITALS: BP 152/60
--- NOTE | 2016-09-19 05:12 | NUR ---
PATIENT RESTING IN BED WITH EYES CLOSED AND NO VISIBLE SIGNS OF DISTRESS. BED IN LOWEST POSITION AND CALL LIGHT WITHIN REACH.
[2016-09-19 05:34] LABS: BASOPHILS 0.3 % (0-2); EOSINOPHILS 3.3 % (0-7); HEMATOCRIT 29.9 % (42.0-54.0); HEMOGLOBIN 9.8 g/dL (13.5-17.5); IMMATURE GRANULOCYTES 0.4 % (0-5); LYMPHOCYTES 13.5 % (15-50); MCHC 32.8 g/dL (31.0-37.0); MCV 82.4 fL (80.0-100.0); MEAN PLATELET VOLUME 9.6 fL (7.4-10.4); MONOCYTES 12.6 % (2-11); NEUTROPHILS 69.9 % (40-80); RBC 3.63 10x6/uL (4.20-6.10); RDW 15.4 % (11.5-14.5); WBC 12.5 10x3/uL (4.8-10.8)
[2016-09-19 05:50] LABS: PLATELET COUNT 292 10x3/uL (130-400)
[2016-09-19 05:54] LABS: ANION GAP 12.9 mmol/L (8-16); CALCIUM 8.8 mg/dL (8.5-10.1); CARBON DIOXIDE 22.8 mmol/L (21.0-32.0); CREATININE - SERUM 1.7 mg/dL (0.6-1.3); POTASSIUM - SERUM 3.7 mmol/L (3.5-5.1)
--- NOTE | 2016-09-19 07:54 | NUR ---
WITHOUT DISTRESSS,DENIES NEEDS.GUARD AT BEDSIDE.CALL LIGHT IN REACH
--- NOTE | 2016-09-19 08:10 | NUR ---
REPORT RECEIVED FROM RETA WHITE. CALL LIGHT IN REACH.
--- NOTE | 2016-09-19 08:37 | NUR ---
ASSESSMENT COMPLETED. AM MEDS ADMINISTERED WITH DEEPA AND NATASHA. SCD APPLIED LLE. BED ALARM TURNED ON D/T FALL SCORE. YELLOW BAND PLACED ON PATIENT. EXPLAINED TO PATIENT THAT HE NEEDS TO REPOSITION HIMSELF EVERY 2 HOURS TO PREVENT BED SORES. PATIENT VERBALIZED UNDERSTANDING. BIGHT MAKER IN ROOM. CALL LIGHT IN REACH. WILL CONTINUE WITH PLAN OF CARE.
[2016-09-19 09:12] VITALS: BP 121/58
--- NOTE | 2016-09-19 10:30 | NUR ---
RT IN ROOM TO DO BREATHING TREATMENT.
--- NOTE | 2016-09-19 12:15 | NUR ---
LUNCH TRAY TAKEN TO PATIENT AND BEHAVIORAL SCIENCES INSTRUCTOR. NO NEEDS VOICED AT THIS TIME. CALL LIGHT IN REACH.
[2016-09-19 12:31] VITALS: BP 92/47
--- NOTE | 2016-09-19 13:36 | NUR ---
ROSALBA COLES. MARI PO. GUARD STATES PATIENT IS IN A LOT OF PAIN. WILL CALL MD TO SEE IS THERE ANYTHING ELSE WE CAN GIVE HIM IF THE PAIN PILL DOESN'T WORK.
--- NOTE | 2016-09-19 15:36 | NUR ---
PERCOCET AND LACTINEX PO. ZOSYN IVPB. CALL LIGHT IN REACH.
[2016-09-19 16:33] VITALS: BP 106/55
--- NOTE | 2016-09-19 17:50 | NUR ---
ROBAXIN AND NORCO PO. INSULIN ADMINISTERED PER ORDER. CALL LIGHT IN REACH.
--- NOTE | 2016-09-19 18:29 | NUR ---
NO CHANGES IN INITIAL ASSESSMENT. SCD TO LLE. BED ALARM ON. CALL LIGHT IN REACH. WILL CONTINUE WITH PLAN OF CARE.
[2016-09-19 20:00] VITALS: BP 108/56
[2016-09-20] VITALS: BP 119/59
--- NOTE | 2016-09-20 01:23 | NUR ---
REST QUIETLY IN BED, EYE CLOSE, BED LOW, CALL LIGHT WITHIN REACH.
--- NOTE | 2016-09-20 02:00 | NUR ---
PT IN BED WITH NO DISTRESS. RESPIRATIONS EVEN AND UNLABORED. SIDE RAILS X 2. BED IS LOW. CALL LIGHT IN REACH.
[2016-09-20 04:00] VITALS: BP 145/75
[2016-09-20 06:16] LABS: BASOPHILS 0.1 % (0-2); EOSINOPHILS 3.8 % (0-7); HEMATOCRIT 25.3 % (42.0-54.0); HEMOGLOBIN 8.3 g/dL (13.5-17.5); IMMATURE GRANULOCYTES 0.3 % (0-5); LYMPHOCYTES 14.4 % (15-50); MCH 26.4 pg (26.0-34.0); MCHC 32.8 g/dL (31.0-37.0); MCV 80.6 fL (80.0-100.0); MONOCYTES 11.5 % (2-11); NEUTROPHILS 69.9 % (40-80); RBC 3.14 10x6/uL (4.20-6.10); RDW 15.4 % (11.5-14.5); WBC 9.8 10x3/uL (4.8-10.8)
[2016-09-20 06:20] LABS: ANION GAP 19.2 mmol/L (8-16); CARBON DIOXIDE 20.8 mmol/L (21.0-32.0); CREATININE - SERUM 1.6 mg/dL (0.6-1.3)
[2016-09-20 06:23] LABS: PLATELET COUNT 182 10x3/uL (130-400)
[2016-09-20 08:32] VITALS: BP 170/83
--- NOTE | 2016-09-20 09:04 | NUR ---
SCHEDULED MEDICATIONS ADMINISTERED AT THIS TIME. ASSESSMENT PERFORMED PER FLOWSHEET. GUARD REMAINS AT BEDSIDE. BED ALARM ON AND SCD TO LEFT LEG. DRESSING REMAINS C/D/I TO RIGHT FOOT. CALL LIGHT IN REACH, WILL CONTINUE WITH PLAN OF CARE.
--- NOTE | 2016-09-20 11:16 | NUR ---
SCHEDULED MEDICATIONS ADMINISTERED AT THIS TIME. GUARD REMAINS AT BEDSIDE. BED ALARM ON AND CALL LIGHT IN REACH. WILL CONTINUE WITH PLAN OF CARE.
[2016-09-20 12:44] VITALS: BP 145/69
[2016-09-20 16:15] VITALS: BP 105/55
[2016-09-20 20:00] VITALS: BP 119/51
[2016-09-21] VITALS: BP 110/59
[2016-09-21 04:03] VITALS: BP 130/61
[2016-09-21 06:40] LABS: BASOPHILS 0.3 % (0-2); EOSINOPHILS 5.1 % (0-7); HEMATOCRIT 29.8 % (42.0-54.0); HEMOGLOBIN 9.6 g/dL (13.5-17.5); IMMATURE GRANULOCYTES 0.3 % (0-5); MCH 26.4 pg (26.0-34.0); MCHC 32.2 g/dL (31.0-37.0); MCV 81.9 fL (80.0-100.0); MONOCYTES 12.1 % (2-11); NEUTROPHILS 66.2 % (40-80); RBC 3.64 10x6/uL (4.20-6.10); RDW 15.3 % (11.5-14.5); WBC 11.9 10x3/uL (4.8-10.8)
[2016-09-21 06:41] LABS: ANION GAP 16.2 mmol/L (8-16); CALCIUM 8.7 mg/dL (8.5-10.1); CARBON DIOXIDE 22.5 mmol/L (21.0-32.0); CREATININE - SERUM 1.6 mg/dL (0.6-1.3); POTASSIUM - SERUM 3.7 mmol/L (3.5-5.1)
[2016-09-21 06:48] LABS: PLATELET COUNT 334 10x3/uL (130-400)
[2016-09-21 08:43] VITALS: BP 165/75
[2016-09-21] MEDS ORDERED: ZOSYN 3.3753.375 G1 IV (08:56)
[2016-09-21 13:56] VITALS: BP 145/61
--- NOTE | 2016-09-21 14:54 | NUR ---
CM REASSESSMENT NOTE: [facility] DOC TO DOC WAS DONE FROM DR. PERSAUD OFFICE TO DR. GARVIN PER JANI STOVER. CM NOTIFIED LT. HAYES AT THE [facility] FOR PICK-UP TIME / SHE STATED AROUND 3:15PM.
--- NOTE | 2016-09-21 14:55 | NUR ---
REPORT CALLED TO DAWNA MCDUFFIEHEAD SCREEN WORKER PAPERS AND INSTRUCTIONS GIVEN, QUESTIONS ANSWERED, IV REMOVED TIP INTACT
--- NOTE | 2016-09-21 16:00 | NUR ---
DISCHARGED PER WITH BELONGINGS TO VAN
[2016-09-21 16:17] VITALS: BP 140/60
== END 2016-09-21 16:47 | DRG 475 ==
LOC: D.SDCHOLD → D.MS 14:17
PROVIDERS: Family Medicine; Specialist; ADMIT Orthopaedic Surgery
PROC: 0Y6N0Z9 Detachment at Left Foot, Partial 1st Ray, Open Approach (ICD-10-PCS; 2016-09-15)
PROC: 047T3ZZ Dilation of Right Peroneal Artery, Percutaneous Approach (ICD-10-PCS; 2016-09-15)
PROC: 047R3ZZ Dilation of Right Posterior Tibial Artery, Percutaneous Approach (ICD-10-PCS; 2016-09-15)
PROC: 047K3ZZ Dilation of Right Femoral Artery, Percutaneous Approach (ICD-10-PCS; principal; 2016-09-15 08:00)
PROC: 0Y6N0ZB Detachment at Left Foot, Partial 2nd Ray, Open Approach (ICD-10-PCS; 2016-09-17)
PROC: 0Y6N0ZC Detachment at Left Foot, Partial 3rd Ray, Open Approach (ICD-10-PCS; 2016-09-17)
PROC: 0Y6N0ZD Detachment at Left Foot, Partial 4th Ray, Open Approach (ICD-10-PCS; 2016-09-17)
PROC: 0Y6N0ZF Detachment at Left Foot, Partial 5th Ray, Open Approach (ICD-10-PCS; 2016-09-17)
PROC: 05HC33Z Insertion of Infusion Device into Left Basilic Vein, Percutaneous Approach (ICD-10-PCS; 2016-09-21)
PROC: B54NZZA Ultrasonography of Left Upper Extremity Veins, Guidance (ICD-10-PCS; 2016-09-21)
DX: T87.44 Infection of amputation stump, left lower extremity (principal); I96 Gangrene, not elsewhere classified; N17.9 Acute kidney failure, unspecified; D62 Acute posthemorrhagic anemia; I12.9 Hypertensive chronic kidney disease with stage 1 through stage 4 chronic kidney disease, or unspecified chronic kidney disease; E11.22 Type 2 diabetes mellitus with diabetic chronic kidney disease; E11.65 Type 2 diabetes mellitus with hyperglycemia; N18.9 Chronic kidney disease, unspecified; Z79.4 Long term (current) use of insulin; E11.42 Type 2 diabetes mellitus with diabetic polyneuropathy; I25.10 Atherosclerotic heart disease of native coronary artery without angina pectoris; E03.9 Hypothyroidism, unspecified; E11.51 Type 2 diabetes mellitus with diabetic peripheral angiopathy without gangrene; Z95.5 Presence of coronary angioplasty implant and graft

== ENCOUNTER 2016-09-24 12:02 | Outpatient (CLI) | payer OTHER ==
[~2016-09-24] VITALS: Ht 170.2 cm; Wt 75.0 kg
[~2016-09-24 12:02] MED LIST changes: +ZOSYN 3.3753.375 G1 IV
[2016-09-24 13:35] VITALS: Ht 170.2 cm; Wt 75.0 kg
--- NOTE | 2016-09-24 13:44 | NUR ---
1330--CHEST XRAY DONE PER BE WITH RADIOLOGY. KIMMIE RN
--- NOTE | 2016-09-24 15:48 | NUR ---
1545--DISCHARGE INSTRUCTIONS GIVEN, GUARD VERBALIZES UNDERSTANDING. PT OFF UNIT VIA WC WITH 2 FACILITY GUARDS. KIMMIE MCDUFFIE
== END 2016-09-24 15:45 | disposition home or self-care (01) ==
LOC: D.OPS 12:02
DX: M86.9 Osteomyelitis, unspecified (principal); Z79.2 Long term (current) use of antibiotics

== ENCOUNTER 2016-10-12 19:27 | Inpatient (IN) | payer MEDICAID ==
[~2016-10-12] VITALS: Ht 170.2 cm; Wt 68.0 kg
--- NOTE | ~2016-10-12 | HEMODYNAMI ---
PATIENT:KAYLIE LONG MEDICAL RECORD: [id number] : 44 LOCATION:[place] [address] ADMISSION DATE: 10/12/16 Generatedon:10/14/201613:41 Patient name: KAYLIE LONG Patient #: [id number] SSN: DO B: 1940 Date of study: 10/14/2016 Page: Of Hemodynamic Procedure Report Patient Data Patient Demographics Procedure consent was obtained First Name: KAYLIE Gender: Male Last Name: ETHAN : 1940 [facility] Initial: J Age: 76 year(s) Patient #: [id number] Race: Black Additional ID: [id number] Contact details Address: [address] [place] [address] State: [place] City: [place] Zip code: [address] Past Medical History Allergies: No known allergies Admission Admission Data Admission Date: 10/12/2016 Admission Time: 22:17 Room #: [facility] Procedure Procedure Types Cath Procedure Peripheral Cath Diagnostic Procedure Miscellaneous Procedure Description Procedure Date Procedure Date: 10/14/2016 Procedure Start Time: 11:55 Procedure Staff Name Function Timmy Leach MD Performing Physician Steph Melendez RT Scrub Haylee Montano RN Nurse Steph Melendez RT Monitor Jesus Ferraro RT Monitor Procedure Data Cath Procedure Fluoroscopy Diagnostic fluoroscopy Total fluoroscopy Time: time: 20.8 min 20.8 min Diagnostic fluoroscopy Total fluoroscopy dose: 297 dose: 297 mGy mGy Entry Location Entry Primary Successful Side Size Upsize 1 Upsize Entry Closure Cummings ccessful Closure Location (Fr) (Fr) 2 (Fr) Remarks Device Remarks Femoral Right 5 Fr 6 Fr Mynx artery Mid-Length Plush Finisher 6Fr/7Fr Diagnostic catheters Device Type Used For End Catheter Placement Diagnostic 5Fr IMT Catheter Procedure Medications Medication Administration Route Dosage Heparin Bolus I.V. 4000 units Fentanyl I.V. 50 mcg Versed I.V. 1 mg Fentanyl I.V. 50 mcg Versed I.V. 1 mg Benadryl I.V. 50 mg Fentanyl I.V. 50 mcg Nitroglycerin IC/IA I.A. 300 mcg Heparin Bolus I.V. 2000 units Fentanyl I.V. 50 mcg Fentanyl I.V. 50 mcg Versed I.V. 1 mg Fentanyl I.V. 50 mcg Hemodynamics Rest Heart Rate: 76 (bpm) Snapshots Pre Cath Intra NCS Post Cath Vital Signs Time Heart Resp SPO2 NIBP (mmHg) Rhythm Pain Status Sedation Rate (ipm) (%) Level (bpm) 11:39:57 73 16 99 139/79(97) NSR 5 (11) , 10(A) Very distressing 11:45:18 67 11 100 194/146(168) NSR 5 (11) , 10(A) Very distressing 11:49:51 65 12 100 148/35(58) NSR 5 (11) , 10(A) Very distressing 11:54:03 62 21 100 69/29(49) NSR 5 (11) , 10(A) Very distressing 11:58:05 63 18 100 70/41(55) NSR 3 (11) , 10(A) Tolerable 12:00:28 61 14 100 68/44(49) NSR 3 (11) , 10(A) Tolerable 12:04:48 64 15 98 130/76(123) NSR 3 (11) , 10(A) Tolerable 12:08:43 62 13 97 111/100(109) NSR 0 (11) , No 9(A) pain 12:09:29 62 15 100 124/109(119) NSR 0 (11) , No 9(A) pain 12:13:45 68 14 100 80/45(57) NSR 0 (11) , No 9(A) pain 12:15:25 67 15 100 78/46(56) NSR 0 (11) , No 9(A) pain 12:18:44 65 12 100 82/44(59) NSR 0 (11) , No 9(A) pain 12:22:47 63 13 100 84/48(61) NSR 0 (11) , No 9(A) pain 12:26:53 63 15 100 81/43(59) NSR 0 (11) , No 9(A) pain 12:29:37 61 16 100 84/46(65) NSR 0 (11) , No 9(A) pain 12:33:39 61 12 100 87/46(66) NSR 0 (11) , No 9(A) pain 12:37:42 62 17 100 84/45(60) NSR 0 (11) , No 9(A) pain 12:41:46 62 14 100 70/42(54) NSR 0 (11) , No 9(A) pain 12:45:48 65 13 100 81/29(58) NSR 0 (11) , No 9(A) pain 12:49:48 67 11 98 95/53(73) NSR 0 (11) , No 9(A) pain 12:53:51 70 15 100 111/54(88) NSR 0 (11) , No 9(A) pain 12:57:57 72 10 97 124/59(92) NSR 0 (11) , No 9(A) pain 13:02:09 73 13 99 128/61(96) NSR 0 (11) , No 9(A) pain 13:06:23 71 17 100 125/63(98) NSR 0 (11) , No 9(A) pain 13:10:35 73 19 100 133/62(101) NSR 0 (11) , No 9(A) pain 13:14:49 73 13 100 140/64(104) NSR 0 (11) , No 9(A) pain 13:19:05 73 17 99 132/67(97) NSR 0 (11) , No 9(A) pain 13:23:17 74 13 139/67(110) NSR 0 (11) , No 9(A) pain 13:27:29 78 6 152/78(114) NSR 0 (11) , No 9(A) pain 13:31:45 78 8 150/78(109) NSR 0 (11) , No 9(A) pain 13:36:03 79 14 100 158/73(116) NSR 0 (11) , No 9(A) pain 13:40:21 80 22 158/79(123) NSR 0 (11) , No 9(A) pain Medications Time Medication Route Dose Verified Delivered Reason Notes Ef fectiveness by by 11:35:13 Fentanyl I.V. 50 Haylee Haylee for back pain glen Montano RN RN 11:45:33 Fentanyl I.V. 50 Haylee Haylee for back pain mcg Dusty Dusty RN RN 11:55:36 Fentanyl I.V. 50 Haylee Haylee for sedation mcg Dusty Dusty RN RN 11:55:45 Versed I.V. 1 mg Haylee Haylee for sedation Dusty Montano RN RN 12:05:16 Fentanyl I.V. 50 Haylee Haylee for sedation mcg Dusty Montano RN RN 12:05:24 Versed I.V. 1 mg Haylee Haylee for sedation Dusty Montano RN RN 12:10:10 Benadryl I.V. 50 mg Haylee Haylee Dusty Dusty RN RN 12:10:41 Versed I.V. 1 mg Haylee Haylee for sedation Dusty Montano RN RN 12:11:00 Heparin Bolus I.V. 4000 Haylee Haylee for units Dusty Montano anticoagulation RN RN 12:36:40 Nitroglycerin I.A. 300 Haylee Timmy for IC/IA mcg Dusty Haylee kern RN, MD 12:42:14 Heparin Bolus I.V. 2000 Haylee Haylee for units Dusty Montano anticoagulation RN RN 13:00:24 Fentanyl I.V. 50 Haylee Haylee for back pain mcg Dusty Dusty RN RN 13:05:38 Fentanyl I.V. 50 Haylee Haylee for back pain mcg Dusty Dusty RN casework manager Log Time Note 11:11:30 Jesus Ferraro RT (R) (CV) sent for patient. Start room use. 11:11:37 Time tracking: Regular hours 11:11:42 Plan of Care:Hemodynamics will remain stable., Cardiac rhythm will remain stable., Comfort level will be maintained., Respiratory function will remain adequate., Patient/ family verbilizes understanding of procedure., Procedure tolerated without complication., Recovers from procedure without complications.. 11:11:48 Patient received from Med II to IR Alert and oriented. Tansferred to table in Supine position. 11:11:49 Correct patient and procedure confirmed by team. 11:11:51 Signed procedure consent form obtained from patient. 11:11:51 ECG and BP/O2 sat monitors applied to patient. 11:11:52 Full Disclosure recording started 11:11:53 - 11:11:56 H&P Date Dictated: 10/14/2016 H&P Addendum completed by physician on day of procedure. (MUST COMPLETE FOR ALL OUTPATIENTS). 11:11:57 Pre-procedure instructions explained to patient. 11:11:58 Pre-op teaching completed and patient verbalized understanding. 11:12:02 Family unavailable. 11:12:04 Patient NPO since Midnight. 11:12:10 Is the patient allergic to Iodine/contrast media? No. 11:12:11 Is patient on blood thinner?No 11:12:13 Patient diabetic? No. 11:12:14 - 11:12:15 ----Pre-sedation anethsthesia assessment.---- 11:12:18 Previous problem with sedation/anesthesia? No ? 11:12:19 Snore? Yes 11:12:20 Sleep apnea? No 11:12:22 Deviated septum? No 11:12:22 Opens mouth fully? Yes 11:12:23 Sticks out tongue? Yes 11:12:29 Airway obstruction? Yes copd 11:12:34 - 11:12:40 Pre procedure: right dorsailis pedis pulse Doppler 11:12:44 Pre procedure: left dorsailis pedis pulse Doppler 11:12:51 Pre procedure: left dorsailis pedis pulse None 11:12:59 Pre procedure: left posterior tibial pulse Doppler 11:13:11 Patient pain scale 0/10 no pain\. 11:13:15 Use device set IR Diagnostic 11:13:17 Acist Manifold opened to sterile field. 11:13:18 Acist Syringe opened to sterile field. 11:13:19 Acist Hand Control opened to sterile field. 11:13:20 Bag Decanter opened to sterile field. 11:13:20 Sterile Angiographic Pack opened to sterile field. 11:35:13 Fentanyl 50 mcg I.V. was administered by Haylee Montano RN; for back pain; 11:35:57 IV patent on arrival in right antecubital with 0.9% NaCl at [facility]. 11:35:59 Sharps counted by scrub and verified by R.N. :35:59 Alarms reviewed by R. N. 11:36:05 Bilateral groins area was prepped with chlora-prep and draped in steril e fashion 11:37:32 Vital chart was started 11:37:33 Baseline sample Acquired. 11:37:41 Rhythm: sinus rhythm 11:45:33 Fentanyl 50 mcg I.V. was administered by Haylee Montano RN; for back pain; 11:52:54 Physician arrived 11:52:55 --------ALL STOP TIME OUT------ 11:52:55 Final Timeout: patient, procedure, and site verified with staff and physician. All members of the team are in agreement. 11:52:58 Bilateral groins site verified by team. 11:53:02 Physical assessment completed. ASA score P 3 - A patient with severe systemic disease as per Timmy Leach MD. 11:53:06 Sedation plan: IV Moderate Sedation Versed, Fentanyl 11:55:36 Fentanyl 50 mcg I.V. was administered by Haylee Montano RN; for sedation; 11:55:45 Versed 1 mg I.V. was administered by Haylee Montano RN; for sedation; 11:55:53 Procedure started. 11:55:57 Local anesthetic to right femoral artery with Lidocaine 1% by Timmy Leach MD.INITIAL ACCESS ONLY 11:56:07 A 5 Fr sheath was inserted into the Right Femoral artery 11:56:12 TUBING, CONTRAST INJCTN HI PRES opened to sterile field. 11:56:12 Micropuncture VSI 4FR kit opened to sterile field. 11:56:13 Terumo 5Fr [place] Sheath opened to sterile field. 11:56:15 A Diagnostic 5Fr IMT Catheter was advanced over the wire and used for . 11:56:[address] 260 .035 glide wire opened to sterile field. 11:56:17 Cook NORIEGA 260 guide wire opened to sterile field. 11:58:48 Cook BENTSON 145cm guide wire opened to sterile field. 12:01:19 CXI SUPPORT .035 135 CM STR catheter opened to sterile field. 12:02:43 Sheath upsized to a 6 Fr Mid-Length. 12:02:53 Terumo 6Fr [place] Destination Sheath opened to sterile field. 12:05:16 Fentanyl 50 mcg I.V. was administered by Haylee Montano RN; for sedation; 12:05:24 Versed 1 mg I.V. was administered by Haylee Montano RN; for sedation; 12:08:15 BasixTOUCH Inflation Syringe opened to sterile field. 12:09:32 Edai Choice PT Extra Support J 300cm .014 gu opened to sterile field. 12:10:10 Benadryl 50 mg I.V. was administered by Haylee Montano RN; ; 12:10:41 Versed 1 mg I.V. was administered by Haylee Montano RN; for sedation; 12:11:00 Heparin Bolus 4000 units I.V. was administered by Haylee Montano RN; for anticoagulation; 12:12:32 Inflation number: 1 A Cordis Powerflex Pro 6.0 x 40 x 80cm balloon was prepped and advanced across the Undefined1, then inflated . 12:14:20 Terumo 6Fr [place] Sheath opened to sterile field. 12:31:15 Turbohawk 1 Small Atherectomy catheter opened to sterile field. 12:36:40 Nitroglycerin IC/IA 300 mcg I.A. was administered by Timmy Leach MD; for vasodilation; 12:42:14 Heparin Bolus 2000 units I.V. was administered by Haylee Montano RN; for anticoagulation; 12:52:01 Inflation number: 2 A Saber 3.0 X 4 X 150 balloon was prepped and advanced across the Undefined1, then inflated 13:00:24 Fentanyl 50 mcg I.V. was administered by Haylee Montano RN; for back pain; 13:02:40 Inflation number: 3 A Cordis Powerflex Pro 5.0 X 100 X 135 balloon was prepped and advanced across the Undefined1, then inflated 13:05:38 Fentanyl 50 mcg I.V. was administered by Haylee Montano RN; for back pain; 13:10:08 Inflation number: 4 A Cordis Powerflex Pro 4.0 x 40 x 135cm balloon was prepped and advanced across the Undefined1, then inflated 13:20:02 MYNX SENIOR IT BUSINESS ANALYST 6FR/7FR opened to sterile field. 13:20:21 Sheath removed intact; hemostasis achieved with Mynx Plush Finisher 6Fr/7Fr to th e Right Femoral artery. 13:22:26 Procedure ended.(Physican Out) 13:32:01 Fluoroscopy time 20.80 minutes. 13:32:06 Flurop Dose total: 297 13:32:06 Fluoroscopy dose: 297 mGy 13:32:31 Post Procedure Pulses reassessed and unchanged 13:32:33 Insertion/operative site no bleeding no hematoma. 13:32:37 Post-op/insertion site Right Femoral artery dressed using a 4 x 4 and Tegaderm. 13:32:40 Post right femoral artery:stable 13:32:45 Post-procedure physical assessment completed. ASA score P 3 - A patient with severe systemic disease as per Timmy Leach MD. 13:32:48 Post procedure rhythm: unchanged. 13:32:50 Procedure and supply charges have been captured, reviewed, submitted an d are correct. 13:32:54 Post procedure instruction explained to patient.Patient verbalizes understanding. 13:39:37 Report given to [facility]. 13:39:40 Patient transfered to [facility] with Bed. 13:41:38 Vital chart was stopped Intervention Summary Intervention Notes Time ActionType Lesion and Equipment Action# Pressure Duration Attributes Used 12:12:32 Inflate Undefined1 Cordis 1 0 00:00 balloon Powerflex Pro 6.0 x 40 x 80cm balloon 12:52:01 Inflate Undefined1 Saber 3.0 2 0 00:00 balloon X 4 X 150 balloon 13:02:40 Inflate Undefined1 Cordis 3 0 00:00 balloon Powerflex Pro 5.0 X 100 X 135 balloon 13:10:08 Inflate Undefined1 Cordis 4 0 00:00 balloon Powerflex Pro 4.0 x 40 x 135cm balloon Device Usage Item Name Manufacture Quantity Catalog Number Hospital Part Current Az nimal Lot# / Charge Number Stock Stock Serial# Code Acist Acist 1 54420 131769 299823 514369 5 Manifold Medical Systems Inc Acist Syringe Acist 1 01627 513340 764388 740267 20 Medical Systems Inc Acist Hand Acist 1 95482 918912 069076 143806 5 Control Medical Systems Inc Bag Decanter Microtek 1 2002S 939278 34818 908897 5 Medical Inc. Sterile Cardinal 1 [id number] 853214 709232 5 Angiographic Health Pack TUBING, Merit 1 [id number] 744295 497477 273809 5 CONTRAST Medical INJCTN HI PRES Micropuncture VSI VASCULAR 1 7266V 291185 845848 5 VSI 4FR kit SOLUTIONS Terumo 5Fr Terumo 1 HYR933 391144 778381 340154 40 [place] Sheath Diagnostic [place] 1 [id number] 023634 111782 80806 5 [id number] 5Fr IMT Scientific Catheter [facility] 1 F15419 964346 345258 5 [id number] ROADRUNN 260 .035 glide wire [facility] 1 D59219 741994 913219 5 3269802 260 guide wire Cook [facility] 1 W94103 615527 447316 5 [id number] 145cm guide wire CXI SUPPORT [facility] 1 J37299 646205 316152 5 4339578 .035 135 CM STR catheter Terumo 6Fr Terumo 1 RSR01 836811 53915 726015 5 [place] Destination Sheath BasixTOUCH Merit 1 GI6435 403145 266442 635642 5 Inflation Medical Syringe [place] Sci [place] 1 [id number] 174012 640603 607340 5 [id number] Choice PT Scientific Extra Support J 300cm .014 gu Cordis Cardinal 1 [id number] 408006 655516 082045 5 Powerflex Pro Health 6.0 x 40 x 80cm balloon Terumo 6Fr Terumo 1 TJX172 612604 436007 323259 40 [place] Sheath Turbohawk 1 Ev3 1 H1-S 833962 7178739 991840 5 Small Atherectomy catheter Saber 3.0 X 4 Cardinal 1 [id number] 240959 489670 5 X 150 balloon Health Cordis Cardinal 1 [id number] 168497 169614 509966 5 Powerflex Pro Health 5.0 X 100 X 135 balloon Cordis Cardinal 1 [id number] 233625 064110 536997 5 Powerflex Pro Health 4.0 x 40 x 135cm balloon MYNX SENIOR IT BUSINESS ANALYST Access 1 OE5455 165262 263057 5 [id number] 6FR/7FR Closure Signature Audit [place] Stage Time Signature Unsigned Intra-Procedure 10/14/2016 Jesus 1:41:35 PM Ronan RT (R) (CV) Signatures Monitor : Steph Signature : Al RT Date : Time : Monitor : Jesus Signature : Ronan RT Date : Time : [facility] [address] [place] [address]
[~2016-10-12 19:27] MED LIST changes: -SYNTHROID50 MCG PO; +SYNTHROID88 MCG PO
[2016-10-12 20:35] LABS: BASOPHILS 0.2 % (0-2); EOSINOPHILS 2.6 % (0-7); HEMATOCRIT 31.3 % (42.0-54.0); HEMOGLOBIN 10.2 g/dL (13.5-17.5); IMMATURE GRANULOCYTES 0.2 % (0-5); LYMPHOCYTES 22.3 % (15-50); MCH 25.8 pg (26.0-34.0); MCHC 32.6 g/dL (31.0-37.0); MEAN PLATELET VOLUME 8.9 fL (7.4-10.4); MONOCYTES 14.8 % (2-11); NEUTROPHILS 59.9 % (40-80); RBC 3.96 10x6/uL (4.20-6.10); RDW 15.5 % (11.5-14.5); WBC 10.5 10x3/uL (4.8-10.8)
[2016-10-12 20:46] LABS: PLATELET COUNT 672 10x3/uL (130-400)
[2016-10-12 20:57] LABS: ALBUMIN 2.1 g/dL (3.4-5.0); ANION GAP 10.9 mmol/L (8-16); BILIRUBIN - TOTAL 0.28 mg/dL (0.2-1.3); CALCIUM 9.6 mg/dL (8.5-10.1); CREATININE - SERUM 1.4 mg/dL (0.6-1.3); POTASSIUM - SERUM 3.9 mmol/L (3.5-5.1); PROTEIN - SERUM 9.3 g/dL (6.4-8.2)
--- NOTE | 2016-10-13 00:07 | NUR ---
PT RECEIVED VIA STRETCHER WITH 2 ARMED OFFICERS AT BEDSIDE. PT IS AWAKE, ALERT, ORIENTED, IS UNABLE TO PROVIDE ANY HX TO HIS MEDICATIONS, TO WHAT HE TAKES, OR WHEN LAST TAKEN. WILL ATTEMPT TO GET INFO FROM [facility]. PT IS IN NO ACUTE DISTRESS AT THIS TIME, WAS TRANSFERRED TO BED WITHOUT ANY DIFFICULTY. PT DENIES ANY NEEDS. WILL CONTINUE TO MONITOR CLOSELY. BED LOW, CALL LIGHT IN REACH, SIDE RAILS X 2, HOB 20 DEGREES.
[2016-10-13 03:03] VITALS: BP 160/92; BMI 23.5
[2016-10-13 04:00] VITALS: BP 186/68
[2016-10-13] MEDS ORDERED: HYDROCODONE-APA1 TAB PO (07:20)
[2016-10-13] MEDS ORDERED: ZANTAC150 MG PO (07:21)
[2016-10-13] MEDS ORDERED: MULTIPLE VITAMI1 TA1 PO (07:22)
[2016-10-13] MEDS ORDERED: HUMULIN 70100 UNIT/1 SC (07:24)
[2016-10-13 08:00] VITALS: BP 182/80
--- NOTE | 2016-10-13 08:11 | NUR ---
AM ROUNDING- RECEIVED REPORT FROM UNDERGRADUATE INTERNSHIP NURSE CHEPE. PT IS CURRENTLY LAYING IN BED ON BACK WITH EYES OPEN RESTING. BIGG IS AT BEDSIDE. ON ROOM AIR. NO MONITOR. PICC LINE SEEN TO RIGHT UPPER ARM THAT IS CURRENTLY SALINE LOCKED. PER REPORT PT IS SUPPOSE TO TRANSFER TO MED SURG SOMETIME TODAY ONCE BED IS AVAILABLE. WILL CONTINUE TO MONITOR AND CONTINUE WITH PLAN OF CARE.
--- NOTE | 2016-10-13 11:19 | NUR ---
RECEIVED WRITTEN ORDERS FROM DR. PERSAUD NURSE PRACTIONER, JANI BELTRÁN. CALLED AND SPOKE WITH CHACE GUNTER TO CLARIFY ORDERS. CHACE GUNTER STATES TO CONSULT [facility] AND SHE WILL FINISH PUTTING ORDERS IN WHEN SHE COMES BACK TO UNIT.
[2016-10-13 12:00] VITALS: BP 183/86
--- NOTE | 2016-10-13 12:47 | NUR ---
1230- PT TO MRI VIA BED, GUARD IS GOING WITH PT.
[2016-10-13 13:23] VITALS: Ht 170.2 cm; Wt 68.0 kg
--- NOTE | 2016-10-13 13:27 | NUR ---
PT BACK FROM MRI VIA BED.
[2016-10-13 14:04] LABS: BASOPHILS 0.1 % (0-2); EOSINOPHILS 0.6 % (0-7); HEMATOCRIT 31.1 % (42.0-54.0); HEMOGLOBIN 10.3 g/dL (13.5-17.5); IMMATURE GRANULOCYTES 0.3 % (0-5); LYMPHOCYTES 15.9 % (15-50); MCH 26.1 pg (26.0-34.0); MCHC 33.1 g/dL (31.0-37.0); MCV 78.7 fL (80.0-100.0); NEUTROPHILS 71.1 % (40-80); PLATELET COUNT 637 10x3/uL (130-400); RBC 3.95 10x6/uL (4.20-6.10); RDW 15.5 % (11.5-14.5)
[2016-10-13 14:39] LABS: ALBUMIN 2.2 g/dL (3.4-5.0); ANION GAP 11.3 mmol/L (8-16); BILIRUBIN - TOTAL 0.53 mg/dL (0.2-1.3); C-REACTIVE PROTEIN 10.6 mg/dL (0.0-0.9); CALCIUM 9.5 mg/dL (8.5-10.1); CREATININE - SERUM 1.3 mg/dL (0.6-1.3); POTASSIUM - SERUM 4.3 mmol/L (3.5-5.1); PROTEIN - SERUM 8.7 g/dL (6.4-8.2)
--- NOTE | 2016-10-13 15:02 | NUR ---
PT IS CURRENTLY SITTING UP IN BED WITH EYES OPEN RESTING WATCHING TV. GUARD IS AT BEDSIDE. NO NEED AT CURRENT TIME. WILL CONTINUE TO MONITOR.
[2016-10-13 15:41] LABS: ERYTHROCYTE SEDIMENTATION RATE 140 mm/hr (0-20)
[2016-10-13 16:00] VITALS: BP 164/69
--- NOTE | 2016-10-13 16:51 | NUR ---
Patient Name: KAYLIE LONG Admission Status: ER Accout number: [id number] Admission Date: 10-12-2016 : 1940 Admission Diagnosis: Attending: MARILYN Current LOS: 1 Anticipated DC Date: Planned Disposition: Court\Law Enforcement Primary Insurance: MEDICAID [facility] PENDING PLANNED EXTERNAL PROVIDER: [facility]; [facility] Discharge Planning Comments: * Is the patient Alert and Oriented? Yes 0 * How many steps to enter\exit or inside your home? NONE 0 * PCP DR. SINHA, [facility] 0 * Pharmacy [facility] 0 * Preadmission Environment Other 0 * Other Environment [facility] 0 * Facility Name [facility], [facility] 0 * ADLs Partial Dependent 0 * Partial ADLs (Assistance needed) Medication Management 0 * Equipment Other 0 * Other Equipment ALL MEDICAL EQUIPMENT PROVIDED BY [facility] 0 * List name and contact numbers for known caregivers / representatives who currently or will assist patient after discharge: [facility], 0 * Community resources currently utilized None 0 * Please name any agencies selected above. NONE 0 * Additional services required to return to the preadmission environment? No 0 * Can the patient safely return to the preadmission environment? Yes 0 * Has this patient been hospitalized within the prior 30 days at any hospital? Yes 0 CM MET WITH PT AND GUARD IN ROOM TO ASSESS FOR DISCHARGE NEEDS AND PLANNING. PT WILL RETURN TO [facility] IN [place] WITH [facility]. DOCTOR WILL NEED TO SPEAK TO DR. SINHA FOR PT'S RETURN, . [facility] TO ARRANGE TRANSPORTATION FOR PT AND GUARD FOR DISCHARGE. Prosthetics Lab Technician: Rafat Khalil
--- NOTE | 2016-10-13 16:57 | NUR ---
SCD'S ARE ON PT.
--- NOTE | 2016-10-13 17:49 | NUR ---
PT INSTRUCTED TO NOT EAT NOR DRINK ANYTHING AFTER MIDNIGHT. PT AGREES. NPO SIGN PLACED ON PTS DOOR.
--- NOTE | 2016-10-13 18:43 | NUR ---
1800- PT IS CURRENTLY LAYING IN BED ON BACK WITH EYES OPEN RESTING. IV ANTIBIOTICS STARTED ORDERED. GUARD IS AT BEDSIDE. NO NEED AT CURRENT TIME. WILL CONTINUE TO MONITOR.
[2016-10-13 19:00] VITALS: BP 144/66
--- NOTE | 2016-10-13 21:45 | NUR ---
PT AWAKE, ALERT, ORIENTED, DENIES ANY NEEDS. PT IS LYING IN BED, RESTING COMFORTABLY, ARMED OFFICER AT BEDSIDE. PT GIVEN HENRY CRACKERS AND CRANBERRY JUICE AFTER RECEIVING HIS INSULIN THIS EVENING. WILL CALL WITH ANY NEEDS. CONTINUE TO MONITOR CLOSELY. PT WILL BE HELD NPO AFTER MIDNIGHT AT ORDERED.
[2016-10-14] VITALS (11 sets, daily range): BP systolic 81–171; BP diastolic 54–73
--- NOTE | 2016-10-14 05:16 | NUR ---
PT LYING IN BED, AWAKE, ALERT, ORIENTED, DENIES ANY NEEDS. ARMED OFFICER AT BEDSIDE. CONTINUE TO MONITOR CLOSELY.
--- NOTE | 2016-10-14 08:03 | NUR ---
0715- AM ROUNDING- RECEIVED REPORT FROM PLANT ATTENDANT NURSE CHEPE. PT IS CURRENTLY SITTING UP IN BED WITH EYES OPEN RESTING. COVERED PT WITH BLANKETS DUE TO BLANKETS BEING ON FLOOR. PT IS NPO CURRENTLY ORDERED. ON ROOM AIR. NO MONITOR. PICC LINE SEEN TO RIGHT UPPER ARM WITH NS RUNNING AT KVO CURRENTLY. GUARD IS AT BEDSIDE. NO NEED AT THIS CURRENT TIME. WILL CONTINUE TO MONITOR AND CONTINUE WITH PLAN OF CARE.
[2016-10-14 08:05] LABS: INR 1.19 (0.85-1.17)
[2016-10-14 08:54] LABS: ANION GAP 9.5 mmol/L (8-16); CALCIUM 8.9 mg/dL (8.5-10.1); CARBON DIOXIDE 25.9 mmol/L (21.0-32.0); CREATININE - SERUM 1.3 mg/dL (0.6-1.3)
[2016-10-14 08:55] LABS: POTASSIUM - SERUM 3.4 mmol/L (3.5-5.1)
[2016-10-14 09:56] LABS: BASOPHILS 0.4 % (0-2); EOSINOPHILS 2.5 % (0-7); HEMATOCRIT 26.4 % (42.0-54.0); HEMOGLOBIN 8.4 g/dL (13.5-17.5); IMMATURE GRANULOCYTES 0.3 % (0-5); LYMPHOCYTES 13.4 % (15-50); MCH 25.2 pg (26.0-34.0); MCHC 31.8 g/dL (31.0-37.0); MCV 79.3 fL (80.0-100.0); MEAN PLATELET VOLUME 9.1 fL (7.4-10.4); MONOCYTES 12.5 % (2-11); NEUTROPHILS 70.9 % (40-80); PLATELET COUNT 595 10x3/uL (130-400); RBC 3.33 10x6/uL (4.20-6.10); RDW 15.6 % (11.5-14.5); WBC 11.1 10x3/uL (4.8-10.8)
--- NOTE | 2016-10-14 10:19 | NUR ---
CONSENTS FOR PROCEDURE EXPLAINED TO PT BY RETA BILLY. CONSENTS SIGNED BY PT AND PLACED IN CHART. PT HAS BEEN NPO ORDERED. PT HAD SIP OF WATER WITH AM MEDICATIONS. WILL CONTINUE TO MONITOR.
--- NOTE | 2016-10-14 11:13 | NUR ---
PT TO IR WITH JACKIE VIA BED. GUARD AT SIDE. WILL CONTINUE TO MONITOR.
--- NOTE | 2016-10-14 13:48 | NUR ---
RECEIVED REPORT FROM DHARA IN SPECIALS. WILL AWAIT PT ARRIVAL.
--- NOTE | 2016-10-14 14:07 | NUR ---
RECEIVED PT VIA BED. PT IS RESTING WITH EYES CLOSED. EQUAL CHEST RISE AND FALL SEEN. 0N 2L AT 2L VIA NC. CLEAN, DRY, AND INTACT DRESSING SEEN TO RIGHT GROIN AREA WITH NO BLEEDING. PT IS LAYING FLAT. GUARD IS AT BEDSIDE. WILL CONTINUE TO MONITOR AND CONTINUE WITH FREQUENT VITALS ORDERED.
--- NOTE | 2016-10-14 14:21 | NUR ---
RETA CONTRERAS INSERTED JONES CATHETER ORDERED. 1,200CC OF YELLOW URINE RETURN SEEN AT THIS TIME. JONES HOOKED TO RIGHT LEG WITH STAT LOCK IN PLACE BY RETA CONTRERAS.
--- NOTE | 2016-10-14 14:22 | NUR ---
DRESSING TO RIGHT GROIN IS CLEAN, DRY, AND INTACT WITH NO BLEEDING SEEN. PT IS LAYING FLAT. PT IS VERY LETHARGIC. GUARD IS AT BEDSIDE. WILL CONTINUE TO MONITOR.
--- NOTE | 2016-10-14 15:28 | NUR ---
PT IS LAYING FLAT IN BED WITH EYES CLOSED RESTING. DRESSING TO RIGHT GROIN IS CLEAN, DRY, AND INTACT. WILL CONTINUE TO MONITOR.
--- NOTE | 2016-10-14 16:29 | NUR ---
PT IS LAYING IN BED ON BACK WITH EYES CLOSED RESTING. PT IS VERY LETHARGIC AT THIS TIME. CLEAN, DRY, AND INTACT DRESSING SEEN TO RIGHT GROIN, NO BLEEDING SEEN. GUARD AT BEDSIDE. WILL CONTINUE TO MONITOR.
--- NOTE | 2016-10-14 18:19 | NUR ---
PT IS CURRENTLY LAYING IN BED FLAT WITH EYES CLOSED RESTING. PT IS VERY LETHARGIC AFTER HAVING PROCEDURE THIS AFTERNOON. I WOKE PT UP AND ASKED IF HE WAS GOING TO EAT DINNER DUE TO PT BEING NPO THIS AM AND AFTERNOON (LUNCH TIME). PT OPENED EYES AND STATES "UH HUH", AND THEN PT WENT BACK TO SLEEP. DRESSING TO RIGHT GROIN IS CLEAN, DRY, AND INTACT WITH NO BLEEDING SEEN. GAURD IS AT BEDSIDE. NO NEED AT CURRENT TIME. WILL CONTINUE TO MONITOR.
--- NOTE | 2016-10-14 20:48 | NUR ---
PT LYING FLAT IN BED, RT LEG REMAINS FLAT, RT GROIN DRESSING CLEAN, DRY AND INTACT. AREA AROUND PUNCTURE SITE IS SOFT, WARM. PT DID ROUSE TO VERBAL STIMULI. I HAVE ENCOURAGED PT TO EAT, HE IS A DIABETIC AND HAS NOT EATEN SINCE BEFORE PROCEDURE. FSBS IS 126 AT THIS TIME. PT STATED HE WOULD EAT WHEN HE CAN SIT UP. JONES CATHETER NOW IN PLACE, DRAINING DARK/CONCENTRATED URINE. PT DENIES ANY NEEDS, DENIES NEEDING ANY PAIN MEDICATION AT THIS TIME. CONTINUE TO MONITOR CLOSELY. BED LOW, CALL LIGHT IN REACH, SIDE RAILS X 2, HOB FLAT, ARMED OFFICER AT BEDSIDE.
[2016-10-15] VITALS: BP 166/79
[2016-10-15 04:00] VITALS: BP 177/72
--- NOTE | 2016-10-15 06:01 | NUR ---
PT RESTING COMFORTABLY, IN NO ACUTE DISTRESS. PT DID REFUSE A BATH THIS SHIFT. DENIES ANY NEEDS. CONTINUE TO MONITOR CLOSELY. ARMED OFFICER AT BEDSIDE.
--- NOTE | 2016-10-15 07:00 | NUR ---
REPORT RECIEVED FROM OFF GOING NURSE. PT IN BED WITH A CORRECTION GAURD AT BED SIDE. PT ALERT X4. PT WITHDRAWN AND QUIET. O2 AT 2L VIA NC. DENIES SOB. RIGH ARM PICC NOTED WITH C/D/I DRESSING C/D/I (KVO). DRESSING TO RIGHT DANYELLE C/D/I. HAS A FC WITH DARK URINE. 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 NO DRAINAGE NOTED. LEFT FOOT 2 AND 3 TOES BLACK. LEFT HEEL BLACK. BOTH FEET COOL TO TOUCH WITH ABSENT DORSAILS PEDIS. POPITEAL PULSES PALPABLE. RADIAL PULSES WEAK BUT PALPABLE. FEET FLOATED ON A PILLOW. DENIES PAIN AT THIS TIME. BREATHING NORMAL AND UNLABORED. CALL LIGHT IN REACH. WILL CONT POC
[2016-10-15 07:19] LABS: BASOPHILS 0.4 % (0-2); EOSINOPHILS 1.9 % (0-7); HEMATOCRIT 25.6 % (42.0-54.0); HEMOGLOBIN 8.1 g/dL (13.5-17.5); IMMATURE GRANULOCYTES 0.3 % (0-5); LYMPHOCYTES 15.4 % (15-50); MCH 24.8 pg (26.0-34.0); MCHC 31.6 g/dL (31.0-37.0); MCV 78.3 fL (80.0-100.0); MONOCYTES 14.8 % (2-11); NEUTROPHILS 67.2 % (40-80); PLATELET COUNT 589 10x3/uL (130-400); RBC 3.27 10x6/uL (4.20-6.10); RDW 15.4 % (11.5-14.5); WBC 11.1 10x3/uL (4.8-10.8)
[2016-10-15 07:32] LABS: ANION GAP 10.9 mmol/L (8-16); CALCIUM 8.3 mg/dL (8.5-10.1); CARBON DIOXIDE 25.6 mmol/L (21.0-32.0); CREATININE - SERUM 1.4 mg/dL (0.6-1.3); POTASSIUM - SERUM 3.5 mmol/L (3.5-5.1)
[2016-10-15 08:00] VITALS: BP 109/49
--- NOTE | 2016-10-15 09:00 | NUR ---
DR PERSAUD REGIONAL MEDICAL DIRECTOR ASSESSMENT PT. EXPLAINED ABOUT THE LIKLEINESS OF HIM HAVING HIS LLE AMPUTATED ABOVE THE KNEE. REGIONAL MEDICAL DIRECTOR ASK IF HE HAS ANY QUESTION AND PT JUST SHOOK HIS HEAD NO. DID NOT TALK OR REACT TO NEWS. ONCE REGIONAL MEDICAL DIRECTOR LEFT, I ASKED IF HE WAS OK OR HAD ANY QUESTION. HE SAID HE WAS OK AND HAD NO QUESTIONS. LEFT ROOM. BÁRBARA PRIDE REMAINED AT BED SIDE. CALL LIGHT IN REACH. WILL CONT POC.
--- NOTE | 2016-10-15 14:30 | NUR ---
LEONARDO REMOVED FROM RIGHT STUMP PER ORDERS. 28 STABLE REMOVED. SMALL AMOUT OF BLOOD NOTED FROM INCISION SITE. STERI STRIPS APPLIED PER ORDRES. C/D/I. WILL CONT POC
[2016-10-15 16:00] VITALS: BP 120/51
--- NOTE | 2016-10-15 18:45 | NUR ---
REPORT GIVEN TO ON COMING NURSE. BIGG STILL REMAINS AT PT BEDSIDE. PT DENIES PAIN. BREATHING NORMAL AND UNLABORED. CALL LIGHT IN REACH. WILL CONT POC
--- NOTE | 2016-10-15 19:22 | NUR ---
Received patient awake resting quietly in bed, security messenger/officer at bedside. Vancomycin IVPB infusing at this time into PICC in right arm. Peck catheter in place, draining well. Denies any pain or discomfort at this time.
[2016-10-15 20:00] VITALS: BP 145/59
--- NOTE | 2016-10-15 21:29 | NUR ---
Patient flushed, feels hot to touch, Temperature taken. Temp = 102.2 Blankets removed, only left sheet on, has no regular Tylenol ordered. Given [place] 10-325mg (325mg Tylenol) at this time. IVPB antibiotic infusing, will monitor for effectiveness. compliance review officer remains at bedside guarding patient. Checked incision sites on right foot, steri strips in place over toe amputation sites. No drainage noted, C/D/I.
--- NOTE | 2016-10-16 00:10 | NUR ---
Temperature retaken, afebrile, Temp = 98.7 PRN medication and removing blankets were effective in reducing elevated temperature. Patient denies any distress or discomfort at this time.
[2016-10-16 04:00] VITALS: BP 149/61
--- NOTE | 2016-10-16 05:29 | NUR ---
Resting comfortably, respirations unlabored, no signs of distress. transit authority police officer remains at bedside.
--- NOTE | 2016-10-16 06:54 | NUR ---
BG check this morning = 56. Patient given one carton of milk and pkg of Honey Grahams. Will pass on to oncoming shift to monitor and recheck BG. Patient denied being symptomatic.
--- NOTE | 2016-10-16 07:34 | NUR ---
RECHECKED BS FOR LOW ONE OF 56 PER NIGHTSHIFT RN. SHE TREATED WITH SNACK AND MILK. FSBS 78 NO TREATMENT REQUIRED PT ASYPTOMATIC AND JUST READY FOR BREAKFAST. PT ALERT AND ORIENTED RESTING QUIETLY IN BED WITH GUARD AT BEDSIDE. PT DENIES ANY CURRENT PAIN OR NEEDS. CL IN REACH, BED IN LOWEST, SIDE RAILS X2. WILL CPOC.
[2016-10-16 08:00] VITALS: BP 148/39
--- NOTE | 2016-10-16 09:30 | NUR ---
MORNING MEDICATIONS PASSED AND PT SWALLOWED WITH ANY DIFFICULTIES. PT A&O SITTING UP IN BED WITH HIS BLANKET OVER HIS FACE. PT HAS R.UPPER ARM DOUBLE LUMEN PICC LINE WITH BIOPATCH IN PLACE, DRSG CDI AND SWAB CAPS IN USE. PT HAS JONES IN PLACE WITH STAT LOCK SECURED TO R.INNER THIGH AND URINE DRAINING CLEAR AND YELLOW. PTS R.FOOT HAS ALL TOES AMPUTATED WITH INCISION DRY AND CLEAN, EDGES APPROXIMATED AND STERI-STRIPS INTACT. PTS L.FOOT HAS 3 TOES BLACK NECROTIC WITH THE HEEL NECROTIC WELL. PERIPHERAL PULSES ARE INTACT AND NORMAL. ELEVATED BILAT FEET ON PILLOWS FOR COMFORT AND TO PREVENT ANY IRRITATION OR BREAKDOWN. PT DENIES ANY PAIN WITH IT. HELD PTS INSULIN R/T BS DROPPING OVERNIGHT AND PT IS BARELY EATING ANY OF HIS MEALS. GUARD AT BEDSIDE AND STATES PT DOESNT EAT VERY MUCH NORMALLY ANYWAYS. CL IN REACH, BED IN LOWEST, SIDE RAILS X2. WILL CPOC.
--- NOTE | 2016-10-16 11:47 | NUR ---
FSBS 96. NO COVERAGE REQUIRED PER SS INSULIN. ENCOURAGED PT TO EAT LUNCH WHEN IT COMES, PT STATES HE WILL TRY. PTS TEMP RUNNING HIGH AT 100.2. WAITING ON DOCTOR TO RETURN CALL. PT DENIES WANTING ANY PAIN MEDICATION THAT IS ORDERED WITH TYLENOL SO WILL WAIT FOR ORDER. NO FURTHER NEEDS AT THIS TIME. WILL CPOC.
[2016-10-16 12:00] VITALS: BP 147/60
--- NOTE | 2016-10-16 12:50 | NUR ---
PROVIDED PT WITH PRN TYLENOL FOR ELEVATED TEMP OF 100.2. PT DIDNT WANT LUNCH BUT STATED HE WOULD TRY CHICKEN STRIPS SO I ORDERED SOME. NO FURTHER NEEDS AT THIS TIME. WILL CPOC.
[2016-10-16 16:00] VITALS: BP 101/44
--- NOTE | 2016-10-16 17:57 | NUR ---
INITIATED IVPB TO BE INFUSED OVER 30 MINS VIA R.UPPER ARM PICC ACCESS. PT RESTING QUIETLY WATCHING TV. EMPTIED JONES CATHETER OF 750ML YELLOW URINE. NO FURTHER NEEDS AT THIS TIME. CL IN REACH, BED IN LOWEST, SIDE RAILS X2 AND GUARD AT BEDSIDE. WILL CPOC.
[2016-10-16 19:00] VITALS: BP 142/52
--- NOTE | 2016-10-16 19:52 | NUR ---
PT RESTING IN BED. GUARD AT BEDSIDE. PT DENIES ANY NEEDS. MOSTLY ASLEEP, AWAKES TO VERBAL STIMULI. BED LOW AND CALLLIGHT WITHIN REACH. WILL CPOC
[2016-10-17] VITALS: BP 148/88
[2016-10-17 04:00] VITALS: BP 124/59
--- NOTE | 2016-10-17 04:50 | NUR ---
PT HAD A LARGE INCONT BM. PT HAD LINEN AND GOWN CHANGED. BATHED PT AND REPOSITIONED. PT DENIES ANY NEEDS. NO S/S OF DISTRESS. WILL CPOC
--- NOTE | 2016-10-17 06:45 | NUR ---
PT RESTING IN BED DENIES ANY NEEDS. LAYING IN BED ON HIS BACK. GUARDS IN ROOM AT ALL TIMES. NO S/S OF DISTRESS. WILL CPOC
[2016-10-17 08:00] VITALS: BP 110/59
--- NOTE | 2016-10-17 15:56 | NUR ---
ALERT AND ORIENTED X4. GUARD AT BEDSIDE. PATIENT NOT SHACKLED TO BED. JONES DRAINING AT BEDSIDE. 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 DENIES ANY NEEDS AT THIS TIME. CONTINUE PLAN OF CARE. BED LOCKED AND LOW. CALL LIGHT IN REACH. TWO SIDERAILS UP.
[2016-10-17 16:00] VITALS: BP 153/61
--- NOTE | 2016-10-17 19:35 | NUR ---
PT RESTING IN BED. GUARD AT BEDSIDE, PT DENIES ANY NEEDS. NO S/S OF DISTRESS. WILL CPOC
[2016-10-17 20:00] VITALS: BP 93/45
[2016-10-18] VITALS: BP 142/55
--- NOTE | 2016-10-18 00:02 | NUR ---
REPOSITIONED PT. ASHU HAS YELLOW URINE DRAINAGE. PT DENIES ANY NEEDS. PT VERBALIZES UNDERSTANDING OF BEING NPO. NO S/S OF DISTRESS. BED LOW AND CALL LIGHT WITHIN REACH. WILL CPOC
[2016-10-18 04:00] VITALS: BP 119/47
--- NOTE | 2016-10-18 06:47 | NUR ---
PT ASLEEP. RESPIRATIONS EVEN AND UNLABORED. BED LOW AND CALL LIGHT WITHIN REACH. GUARD AT BEDSIDE 20/09. PT HAS BEEN NPO EXCEPT SIPS WITH MEDS THIS MORNING. LESS THAN 30ML. NO S/S OF DISTRESS. WILL CPOC
[2016-10-18 08:00] VITALS: BP 149/69
--- NOTE | 2016-10-18 12:15 | NUR ---
PRE-OP FOR LT LEG BKA COMPLETE. CONSENTS SIGNED ON CHART. GUARD AT BEDSIDE. TAKEN TO OR VIA BED. CONTINUE PLAN OF CARE AND SAFETY PRECAUTIONS.
--- NOTE | 2016-10-18 14:40 | NUR ---
ARRIVE BACK TO ROOM FROM PROCEDURE. ALERT AND ORIENTED X4. ACCOMPANIED BY OR STAFF AND GUARD. LT LEG ELEVATED ON PILLOW. DRESSING CLEAN DRY INTACT. FREE FROM BLEEDING. T-98, O2-100%RA, P-80, BP-110/62. RECIEVED TWO BLOCKS DURING SURGERY. DENIES PAIN. DENIES SOB. REQUESTING FOOD AND WATER. DIET CHANGED AND LUNCH ORDERED. CONTINUE PLAN OF CARE. BED LOCKED AND LOW. CALL LIGHT IN REACH. TWO SIDERAIL UP. JONES DRAINING AT BEDSIDE BY GRAVITY.
[2016-10-18 14:46] VITALS: BP 110/62
[2016-10-18 15:08] LABS: BASOPHILS 0.2 % (0-2); EOSINOPHILS 1.6 % (0-7); HEMATOCRIT 27.2 % (42.0-54.0); HEMOGLOBIN 8.7 g/dL (13.5-17.5); IMMATURE GRANULOCYTES 0.3 % (0-5); MCH 25.3 pg (26.0-34.0); MCV 79.1 fL (80.0-100.0); MEAN PLATELET VOLUME 9.7 fL (7.4-10.4); MONOCYTES 12.1 % (2-11); NEUTROPHILS 71.8 % (40-80); PLATELET COUNT 620 10x3/uL (130-400); RBC 3.44 10x6/uL (4.20-6.10); RDW 15.5 % (11.5-14.5); WBC 15.3 10x3/uL (4.8-10.8)
[2016-10-18 15:26] LABS: ANION GAP 12.7 mmol/L (8-16); CALCIUM 8.6 mg/dL (8.5-10.1); CARBON DIOXIDE 25.4 mmol/L (21.0-32.0); CREATININE - SERUM 1.3 mg/dL (0.6-1.3); POTASSIUM - SERUM 3.1 mmol/L (3.5-5.1)
--- NOTE | 2016-10-18 18:26 | NUR ---
ALERT AND ORIENTED X4. RESTING IN BED. INITIATE UNIT 1 PRBC TRANSFUSION AT 75mL/HR. T-98.8, R-16, BP-99/40. REMAIN IN ROOM FIRST 15MINS TO MONITOR FOR ANY REACTIONS. GUARD AT BEDSIDE. LT LEG ELEVATED ON PILLOW. DRESSING CLEAN DRY INTACT. NO BLOOD SEEN. CONTINUE PLAN OF CARE AND SAFETY PRECAUTIONS.
--- NOTE | 2016-10-18 18:41 | NUR ---
ALERT AND ORIENTED X4. RESTING IN BED. NO REACTION OBSERVED. T-99, BP-95/40, R-16, P-75. DENIES PAIN OR SOB. INCREASE TRANSFUSION RATE TO 130mL/HR THROUGH RT UPPER ARM PICC LINE. CONTINUE PLAN OF CARE AND SAFETY PRECAUTIONS. SHIFT CHANGE REPORT OFF TO JOSH.
[2016-10-18 19:00] VITALS: BP 138/51
--- NOTE | 2016-10-18 19:56 | NUR ---
PT RESTING IN BED. PRBC INFUSING TO RIGHT UPPER ARM PICC AT 130ML/HR. GUARD AT BED SIDE 20/09. PT DENIES ANY NEEDS. NO S/S OF DISTRESS. BED LOW AND CALL LIGHT WITHIN REACH. WILL CPOC
--- NOTE | 2016-10-19 02:54 | NUR ---
PRBC INFUSING TO RIGHT UPPER ARM PICC. PT TOLERATING WELL. INFUSION STARTED AT 0250. BP 134/58 HR 74 RESPIRATIONS 16 AND TEMP IS 96.6 AXILLARY. PT DENIES ANY PAIN AT THIS TIME. INFLATABLE BUILDINGS LAMINATOR STILL AVALIBLE. AND IN REACH. GUARD AT BED SIDE. REPOSITIONED PT. NO S/S OF DISTRESS. BED LOW AND CALL LIGHT WITHIN REACH WILL CPOC
--- NOTE | 2016-10-19 03:01 | NUR ---
PT RESTING. RESPIRATIONS EVEN AND UNLABORED. NO S/S OF DISTRESS. PRBC STILL INFUSING TO RIGHT UPPER ARM PICC. BP 148/69 HR 81 TEMP 97.5. PT DENIES ANY NEEDS NO S/S OF DISTRESS. WILL CPOC FOLLEY EMPTIED. 425 OF [place]Y YELLOW CONCENTRATED URINE
[2016-10-19 04:00] VITALS: BP 149/68
--- NOTE | 2016-10-19 06:30 | NUR ---
PT ASLEEP IN BED. PRBC STILL INFUSING. WILL BE DONE AT 0650. WILL PUT ORDER IN TOLD TO CHECK H&H AFTER 2ND UNIT. RESPIRATIONS EVEN AND UNLABORED. NO S/S OF DISTRESS. ALL VITALS WITHIN NORMAL RANGE. BED LOW AND CALL LIGHT IN REACH. GUARD AT BED SIDE WILL CPOC
--- NOTE | 2016-10-19 07:15 | NUR ---
RECEIVED REPORT. ASSUMED CARE OF PATIENT. CALL LIGHT WITHIN REACH. PATIENT PULLED PICC LINE OUT AT THIS TIME. NOC NURSE AT BEDSIDE WITH VASCULAR NURSE. PATIENT DENIES NEEDS AT THIS TIME. RESP EVEN AND UNLABORED. LEFT BKA WRAPPED. NO DISTRESS. GAURD AT BEDSIDE.
--- NOTE | 2016-10-19 08:15 | NUR ---
CAME IN PT ROOM AND HIS PICC LINE WAS PULLED OUT. WHEN TALKING TO THE PT ABOUT IT HE SAID HE WAS SORRY AND SAID HE PULLED ON THE LINE AND PULLED IT OUT. I WAS IN THE ROOM AT 0805 AND IT WAS INTACT DRESSING CLEAN. FLUSHED HIS LUMENS. PICC REMOVED CATH END INTACT NO ABNORMAL. LINE 43. DIANNE NOTIFIED ABOUT PICC REMOVAL. PT HAS NO S/S OF DISTRESS. BED LOW AND CALL LIGHT WITHIN REACH. WILL CPOC
[2016-10-19 08:18] VITALS: BP 168/77
[2016-10-19 08:30] LABS: HEMATOCRIT 32.2 % (42.0-54.0)
[2016-10-19 08:37] LABS: HEMOGLOBIN 10.9 g/dL (13.5-17.5)
[2016-10-19 10:58] LABS: MCH 26.9 pg (26.0-34.0); MCV 79.2 fL (80.0-100.0); MEAN PLATELET VOLUME 9.5 fL (7.4-10.4); RBC 4.09 10x6/uL (4.20-6.10); RDW 15.4 % (11.5-14.5); WBC 13.5 10x3/uL (4.8-10.8)
--- NOTE | 2016-10-19 11:19 | NUR ---
FSBS 131. NO INSULIN COVERAGE PER SLIDING SCALE.
--- NOTE | 2016-10-19 11:59 | NUR ---
22 GAUGE PLACED TO RIGHT HAND X 1 STICK. GOOD BLOOD RETURN, EASY FLUSH. TOLERATED IV PLACEMENT WELL. TAPED, DATED AND SECURED. NO DISTRESS. CALL LIGHT WITHIN REACH.
[2016-10-19 12:23] VITALS: BP 135/59
--- NOTE | 2016-10-19 16:47 | NUR ---
FSBS 138. NO INSULIN COVERAGE REQUIRED PER SLIDING SCALE.
[2016-10-19 17:06] VITALS: BP 140/63
--- NOTE | 2016-10-19 23:23 | NUR ---
PT A&O X4. ALOT MORE ALERT TODAY. AWAKE AND TAKING TODAY. TALKING BACK ALOT MORE, SITTING UP IN BED AT 50. EATING A BAG OF CHEETOS AND DRINKING A CUP OF COFFEE. PT DENIES ANY NEEDS NO S/S OF DISTRESS. WILL CPOC
[2016-10-20] VITALS: BP 175/71
[2016-10-20 04:00] VITALS: BP 182/79
--- NOTE | 2016-10-20 06:50 | NUR ---
PT SITTING IN BED, DENIES ANY PAIN. NO S/S OF DISTRESS. 20/09 GUARD AT BEDSIDE. . PT WATCHING TV. DENIES ANY NEEDS. WILL CPOC
[2016-10-20 08:49] LABS: HEMOGLOBIN 10.9 g/dL (13.5-17.5); MCHC 34.1 g/dL (31.0-37.0); MCV 79.2 fL (80.0-100.0); MEAN PLATELET VOLUME 9.2 fL (7.4-10.4); RBC 4.04 10x6/uL (4.20-6.10); RDW 15.4 % (11.5-14.5); WBC 13.2 10x3/uL (4.8-10.8)
[2016-10-20 08:53] LABS: ANION GAP 9.8 mmol/L (8-16); CALCIUM 8.2 mg/dL (8.5-10.1); CARBON DIOXIDE 26.7 mmol/L (21.0-32.0); CREATININE - SERUM 1.2 mg/dL (0.6-1.3); POTASSIUM - SERUM 3.5 mmol/L (3.5-5.1)
[2016-10-20 09:00] VITALS: BP 159/54
[2016-10-20] MEDS ORDERED: LOVENOX80 MG/0.8 SC (12:31)
[2016-10-20] MEDS ORDERED: BACTRIM DS TABL1 TAB PO (13:54)
--- NOTE | 2016-10-20 17:45 | NUR ---
ALERT AND ORIENTED X4. SITTING UP IN BED. GUARD AT BEDSIDE. REPORT CALLED TO IBBIE AT [facility]. PLAN TO TRANSPORT AT 1900.
--- NOTE | 2016-10-21 19:16 | OP ---
PATIENT NAME: KAYLIE LONG MEDICAL RECORD: [id number] :42 LOCATION:D. [id number] ADMISSION DATE:10/12/16 SURGEON: MARY JO OSBORNE MD DATE OF OPERATION: 10/18/2016 PREOPERATIVE DIAGNOSIS: Critical ischemia to the left lower extremity. POSTOPERATIVE DIAGNOSIS: Critical ischemia to the left lower extremity. PROCEDURE: Left below-knee amputation. SURGEON: Mary Jo Osborne MD ANESTHESIA: General. INTRAOPERATIVE COMPLICATIONS: None. SUMMARY OF PATHOLOGIC FINDINGS: While the patient did have restricted blood flow seen at the time of interventional radiology, the patient also had what I think is enough blood flow to heal a BKA. The patient's foot was slightly improved from what he came in; however, the entire top of his foot had no blood flow to it and there is a very large black eschar on his heel as well as to black toes. Decision was made to proceed with a BKA. As per interventional radiology, the patient would likely not feel anything below this level, as was the case at operative findings. OPERATIVE SUMMARY IN DETAIL: After obtaining the appropriate preoperative orthopedic surgery consent as well as anesthetic consultation, evaluation and clearance, the patient was brought to the operating room and placed on the operating table in supine position. After general laryngeal mask airway was administered, tourniquet was placed about the proximal aspect of the left lower extremity. Left lower extremity was then prepped and draped in a routine sterile fashion. Planned incision for a below-knee amputation was drawn with a sterile marking pen. Incision was then made. This was taken down the tibia and the fibula, which were then cut with a power saw. The fibula was cut slightly more proximal and slightly more proximal than the fibula. A small Chevron was cut on the anterior aspect of the tibia to avoid skin pressure points. The amputation was then taken and posterior flap was created. The wound was then copiously irrigated. At this point, the tourniquet was deflated and all bleeders were clipped and high ligated. Wound was again copiously irrigated and closed with #1 Vicryl, 2-0 Vicryl and skin rashida. Sterile dressings were applied. A posterior splint was applied in order to prevent flexion contracture. Having completed this, the patient was awakened and taken to recovery room in stable condition. All final needle and sponge counts were correct. TRANSINT:[id number] Voice Confirmation ID: [id number] DOCUMENT ID: [id number] OPERATIVE REPORT [id number] KAYLIE LONG MD, MARY JO VIDALES at 1916 CC: [id number] DICTATION DATE: 10/18/16 1637 PATIENT ACCOUNT REPRESENTATIVE: 10/18/16 1717 DIS IN 10/20/16 [place] [id number] [place] [id number]
== END 2016-10-20 23:50 | DRG 271 ==
LOC: D.ER 19:27 → D.M2 22:16 → OBSVTIME 22:16 → D.M2 22:17
PROVIDERS: Family Medicine; Radiology Diagnostic Radiology; ADMIT Orthopaedic Surgery
PROC: 04CN3ZZ Extirpation of Matter from Left Popliteal Artery, Percutaneous Approach (ICD-10-PCS; 2016-10-14)
PROC: 04CQ3ZZ Extirpation of Matter from Left Anterior Tibial Artery, Percutaneous Approach (ICD-10-PCS; 2016-10-14)
PROC: 04CL3ZZ Extirpation of Matter from Left Femoral Artery, Percutaneous Approach (ICD-10-PCS; 2016-10-14)
PROC: B41G1ZZ Fluoroscopy of Left Lower Extremity Arteries using Low Osmolar Contrast (ICD-10-PCS; 2016-10-14)
PROC: 0Y6J0Z1 Detachment at Left Lower Leg, High, Open Approach (ICD-10-PCS; principal; 2016-10-18 14:00)
DX: E11.52 Type 2 diabetes mellitus with diabetic peripheral angiopathy with gangrene (principal); I99.8 Other disorder of circulatory system; E11.65 Type 2 diabetes mellitus with hyperglycemia; D64.9 Anemia, unspecified; E03.9 Hypothyroidism, unspecified; I10 Essential (primary) hypertension; I25.10 Atherosclerotic heart disease of native coronary artery without angina pectoris; Z87.891 Personal history of nicotine dependence

== ENCOUNTER 2016-11-02 11:14 | Inpatient (IN) | payer MEDICAID ==
[~2016-11-02] VITALS: Ht 170.2 cm; Wt 74.8 kg
[~2016-11-02 11:14] MED LIST changes: +BACTRIM DS TABL1 TAB PO; +HYDROCODONE-APA1 TAB PO; +LOVENOX80 MG/0.8 SC; +MULTIPLE VITAMI1 TA1 PO; +ZANTAC150 MG PO
[2016-11-02 12:01] LABS: BASOPHILS 0.2 % (0-2); EOSINOPHILS 1.9 % (0-7); HEMATOCRIT 25.4 % (42.0-54.0); HEMOGLOBIN 8.6 g/dL (13.5-17.5); IMMATURE GRANULOCYTES 0.3 % (0-5); LYMPHOCYTES 13.4 % (15-50); MCH 26.7 pg (26.0-34.0); MCHC 33.9 g/dL (31.0-37.0); MCV 78.9 fL (80.0-100.0); MEAN PLATELET VOLUME 9.2 fL (7.4-10.4); MONOCYTES 11.4 % (2-11); NEUTROPHILS 72.8 % (40-80); PLATELET COUNT 512 10x3/uL (130-400); RBC 3.22 10x6/uL (4.20-6.10); RDW 16.8 % (11.5-14.5); WBC 14.6 10x3/uL (4.8-10.8)
[2016-11-02 12:06] LABS: BILIRUBIN - TOTAL 0.52 mg/dL (0.2-1.3); CALCIUM 8.7 mg/dL (8.5-10.1); CHLORIDE - SERUM 104 mmol/L (98-107)
[2016-11-02 12:17] LABS: ALBUMIN 1.9 g/dL (3.4-5.0); ALKALINE PHOSPHATASE 558 U/L (46-116); ALT (SGPT) 183 U/L (10-68); CALC OSMOLALITY 271 mosm/kg (275-300); CARBON DIOXIDE 20.7 mmol/L (21.0-32.0); CREATININE - SERUM 1.5 mg/dL (0.6-1.3); GLUCOSE 63 mg/dL (74-106); POTASSIUM - SERUM 4.8 mmol/L (3.5-5.1); PROTEIN - SERUM 7.1 g/dL (6.4-8.2); SODIUM 136 mmol/L (136-145); UREA NITROGEN 18 mg/dL (7-18); eGFR NON AFRICAN AMERICAN 49 mL/min (90-120)
[2016-11-02 12:32] LABS: CKMB 5.7 U/L (0.0-3.6)
[2016-11-02 12:33] LABS: CREATINE KINASE 886 UL (21-232)
[2016-11-02 12:35] LABS: APPEARANCE HAZY (CLEAR); BILIRUBIN NEGATIVE (NEGATIVE); COLOR YELLOW (YELLOW); GLUCOSE NEGATIVE (NEGATIVE); KETONE NEGATIVE (NEGATIVE); LEUKOCYTE ESTERASE 2+ (NEGATIVE); NITRITE NEGATIVE (NEGATIVE); PROTEIN 1+ mg/dL (NEGATIVE)
[2016-11-02 12:38] LABS: BACTERIA MODERATE /hpf (NONE SEEN); EPITHELIAL CELLS 0-5 /hpf (0-5); RED CELLS - URINE 0-5 /hpf (0-5); YEAST >1+ /hpf (NONE SEEN)
[2016-11-02 12:39] LABS: MUCUS <1+ /lpf (NONE SEEN)
--- NOTE | 2016-11-02 19:00 | NUR ---
REC'D PER STRETCHER TO ROOM 6773 A 76 Y/O B/M PER SERVICES DR. BOWER WITH DX. SEPSIS ALTERED MENTAL STATUS. IV PATENT RT WRIST SALINE LOCKED. DANCER OR CHOREOGRAPHER AT BEDSIDE. JONES TO BEDSIDE DRAINAGE WITH YELLOW URINE. DRESSING TO RT FOOT C/D/I. LEFT BKA NOTED (OLD). SR UP X2 CALL LIGHT WITHIN REACH.
--- NOTE | 2016-11-02 19:46 | NUR ---
PT AOX4 RESP EVEN AND NONLABORED PT DENIES NEEDS AT THIS TIME PT IV IN RIGHT WRIST PATENT AND INTACT AT THIS TIME SRX2 BED AT LOWEST SETTING CALL LIGHT WITHIN REACH WILL CONTINUE TO MONITOR
--- NOTE | 2016-11-02 22:17 | NUR ---
VANCOMYCIN STARTED INFUSING TO RT WRIST IV SITE. FIELD ADJUSTER STATES UNABLE TO DRAW PT'S CARDIAC ENZYMES. WILL HAVE NEXT FIELD ADJUSTER TO DRAW.
--- NOTE | 2016-11-02 23:30 | NUR ---
EKG DONE PER RT TECH LAB DRAWN PER FIELD CANE SCALER.
[2016-11-02 23:46] LABS: CKMB 6.4 U/L (0.0-3.6)
[2016-11-02 23:47] LABS: CREATINE KINASE 855 UL (21-232); TROPONIN-I 0.085 ng/mL (0.000-0.060)
[2016-11-03] VITALS (13 sets, daily range): BP systolic 105–170; BP diastolic 56–88; Ht 170.2 cm; Wt 74.8 kg
--- NOTE | 2016-11-03 01:00 | NUR ---
EYES CLOSED RESPIRATIONS WITH EASE AND UNLABORED.
--- NOTE | 2016-11-03 03:30 | NUR ---
RESTING QUIETLY NO CHANGES IN ASSESSMENT.
[2016-11-03 06:22] LABS: BASOPHILS 0.2 % (0-2); EOSINOPHILS 2.1 % (0-7); HEMATOCRIT 22.9 % (42.0-54.0); HEMOGLOBIN 7.7 g/dL (13.5-17.5); IMMATURE GRANULOCYTES 0.2 % (0-5); LYMPHOCYTES 12.8 % (15-50); MCHC 33.6 g/dL (31.0-37.0); MCV 77.4 fL (80.0-100.0); MEAN PLATELET VOLUME 8.9 fL (7.4-10.4); MONOCYTES 12.4 % (2-11); NEUTROPHILS 72.3 % (40-80); PLATELET COUNT 491 10x3/uL (130-400); RBC 2.96 10x6/uL (4.20-6.10); RDW 16.9 % (11.5-14.5); WBC 14.8 10x3/uL (4.8-10.8)
[2016-11-03 07:14] LABS: ALBUMIN 1.7 g/dL (3.4-5.0); ALKALINE PHOSPHATASE 462 U/L (46-116); ALT (SGPT) 147 U/L (10-68); BILIRUBIN - TOTAL 0.54 mg/dL (0.2-1.3); CALCIUM 8.5 mg/dL (8.5-10.1); CHLORIDE - SERUM 103 mmol/L (98-107); CKMB 6.5 U/L (0.0-3.6); CREATININE - SERUM 1.3 mg/dL (0.6-1.3); POTASSIUM - SERUM 4.4 mmol/L (3.5-5.1); SODIUM 134 mmol/L (136-145); UREA NITROGEN 17 mg/dL (7-18); eGFR NON AFRICAN AMERICAN 57 mL/min (90-120)
[2016-11-03 07:15] LABS: CALC OSMOLALITY 270 mosm/kg (275-300); CREATINE KINASE 820 UL (21-232); GLUCOSE 109 mg/dL (74-106); TROPONIN-I 0.086 ng/mL (0.000-0.060)
--- NOTE | 2016-11-03 07:22 | NUR ---
REPORT RECEIVED FROM CONTRACT ADMINISTRATION SPECIALIST NURSE. CALL LIGHT IN REACH.
--- NOTE | 2016-11-03 08:38 | NUR ---
ASSESSMENT COMPLETED. DENIES NEEDS. MECHANICAL MANUFACTURING TECHNICIAN IN ROOM. CALL LIGHT IN REACH. WILL CONTINUE WITH PLAN OF CARE.
--- NOTE | 2016-11-03 09:06 | NUR ---
VANC IVPB PER PER ORDER. DENIES NEEDS. CALL LIGHT IN REACH.
--- NOTE | 2016-11-03 10:25 | NUR ---
PATIENT ALERT IN LOW GARCIA POSITION. NO SIGNS OF DISTRESS NOTED. GUARD AND [facility] STAFF AT BEDSIDE. NO SIGNS OF DISTRESS NOTED. SIDE RAILS UP X2. BED IN LOW POSITION. CALL LIGHT IN REACH.
--- NOTE | 2016-11-03 12:00 | NUR ---
MARGARITAIX PO. BELLASYN IVPB. FSBS 207. HUMALOG 4 UNITS SUBQ TO LEFT ARM. CALL LIGHT IN REACH.
--- NOTE | 2016-11-03 14:38 | NUR ---
WOUND CULTURE OBTAINED PER APN. GENA GUNTER TO LAB.
--- NOTE | 2016-11-03 15:26 | NUR ---
Wound care consult: Right foot previous amputation of toes (in May?) The area measures 2cm x 7cm x 0.9cm. There is dark hard necrotic tissue across most of the wound. No odor noted. No drainage noted.
--- NOTE | 2016-11-03 16:20 | NUR ---
PRBC UNIT 1 INITIATED PER RETA MACDONALD. WILL MONITOR FOR 15 MINUTES.
--- NOTE | 2016-11-03 18:14 | NUR ---
BLOOD STILL INFUSING. NO CHANGES IN INITIAL ASSESSMENT. CALL LIGHT IN REACH. GUARD AT BEDSIDE. WILL CONTINUE WITH PLAN OF CARE.
--- NOTE | 2016-11-03 20:00 | NUR ---
ASSESSMENT PER FLOWSHEET. IV PATENT RT HAND NS KVO POST PRBC FIRST UNIT GIVEN. DRESSING TO RT FOOT C/D/I. OLD LEFT BKA NOTED GUARD AT BEDSIDE. JONES TO BEDSIDE DRAINAGE WITH YELLOW URINE.SR UP X2 CALL LIGHT WITHIN REACH.
--- NOTE | 2016-11-03 21:00 | NUR ---
MEDS GIVEN PER MAR, NVXM=[phone] 8 UNITS HUMALOG INSULIN GIVEN SUBC LEFT ARM PER S/S.
--- NOTE | 2016-11-03 22:00 | NUR ---
SECOND UNIT PRBC'S HUNG PER HOSPITAL PROTOCAL. MONITORING VS.
--- NOTE | 2016-11-03 23:30 | NUR ---
ANTIBIOTIC HELD BLOOD INFUSING.
[2016-11-04] VITALS (8 sets, daily range): BP systolic 140–177; BP diastolic 56–74
--- NOTE | 2016-11-04 00:15 | NUR ---
EYES CLOSED RESPIRATIONS WITH EASE.
--- NOTE | 2016-11-04 00:25 | NUR ---
SECOND UNIT BLOOD COMPLETED NO REACTION SEEN
--- NOTE | 2016-11-04 02:18 | NUR ---
inc stool. partial bath with linens changed.
--- NOTE | 2016-11-04 04:31 | NUR ---
INC STOOL PARTIAL BATH WITH LINENS CHANGED.
[2016-11-04 05:35] LABS: BASOPHILS 0.2 % (0-2); EOSINOPHILS 2.4 % (0-7); IMMATURE GRANULOCYTES 0.2 % (0-5); MCH 27.8 pg (26.0-34.0); MEAN PLATELET VOLUME 8.9 fL (7.4-10.4); NEUTROPHILS 69.2 % (40-80); PLATELET COUNT 443 10x3/uL (130-400); RDW 16.8 % (11.5-14.5); WBC 17.3 10x3/uL (4.8-10.8)
[2016-11-04 05:52] LABS: HEMATOCRIT 33.7 % (42.0-54.0); HEMOGLOBIN 11.8 g/dL (13.5-17.5); MCV 79.5 fL (80.0-100.0); RBC 4.24 10x6/uL (4.20-6.10)
[2016-11-04 06:11] LABS: ANION GAP 16.4 mmol/L (8-16); BILIRUBIN - TOTAL 1.3 mg/dL (0.2-1.3); CALCIUM 9.1 mg/dL (8.5-10.1); CARBON DIOXIDE 19.6 mmol/L (21.0-32.0); CREATININE - SERUM 1.1 mg/dL (0.6-1.3); VANCOMYCIN - RANDOM 21.1 ug/mL (10.0-20.0)
--- NOTE | 2016-11-04 07:04 | NUR ---
REPORT RECEIVED FROM GEOPHYSICS SCIENTIST NURSE. CALL LIGHT IN REACH.
--- NOTE | 2016-11-04 07:17 | NUR ---
JHTT=870.NO COVERAGE
--- NOTE | 2016-11-04 09:06 | NUR ---
ASSESSMENT COMPLETED. AM MEDS ADMINISTERED WITH Need. GUARD AT BEDSIDE. CALL LIGHT IN REACH. WILL CONTINUE WITH PLAN OF CARE.
--- NOTE | 2016-11-04 10:00 | NUR ---
PATIENT IN RIGHT LATERAL POSITION ALERT AND RESTING QUIETLY. NO SIGNS OF DISTRESS NOTED. GUARD AT BEDSIDE. SIDE RAILS UP X2. BED IN LOW POSITION. CALL LIGHT IN REACH.
--- NOTE | 2016-11-04 10:02 | NUR ---
Patient Name: KAYLIE LONG Admission Status: ER Accout number: [id number] Admission Date: 11-02-2016 : 1942 Admission Diagnosis: Attending: ASHLEY BOWER Current LOS: 2 Anticipated DC Date: Planned Disposition: Primary Insurance: MEDICAID INTERMEDIATE PENDING Discharge Planning Comments: PATIENT WILL RETURN TO [facility] IN [place] WITH THE [facility]. DR WILL NEED TO SPEAK TO DR ERAZO FOR LIZA'S RETURN [phone] INTERMEDIATE WILL TRANSPORT PATIENT BACK AND A GUARD AT DISCHARGE Meat Boner: Maryam Shrestha
--- NOTE | 2016-11-04 11:42 | NUR ---
BAKARI COLES. FSBS 118 SO NO COVERAGE REQUIRED. GUARD IN ROOM. CALL LIGHT IN REACH.
--- NOTE | 2016-11-04 13:10 | NUR ---
RESTING WITH EYES CLOSED. RESP EVEN AND UNLABORED. GUARD IN ROOM.
--- NOTE | 2016-11-04 14:15 | NUR ---
DENIES NEEDS AT THIS TIME. CALL LIGHT IN REACH.
--- NOTE | 2016-11-04 18:28 | NUR ---
NO CHANGES IN INITIAL ASSESSMENT. CALL LIGHT IN REACH. REFUSES SCDs. WILL CONTINUE WITH PLAN OF CARE.
--- NOTE | 2016-11-04 19:00 | NUR ---
REPORT RECEIVED AND CARE OF PT ASSUMED. PT LYING IN SEMI GARCIA'S POSITION WATCHING TV. IV IN LEFT HAND PATENT WITH NS INFUSING AT 150 ML / HR. TELEMETRY IN USE AND PT READING SR AT THIS ASSESSMENT. DRESSINGS ON LEFT STUMP AND RIGHT FOOT CLEAN AND DRY. WILL MONITOR CLOSLEY FOR NEEDS. GUARD AT BEDSIDE.
--- NOTE | 2016-11-04 19:01 | NUR ---
INCONTINENT OF STOOL. PARTIAL BED BATH GIVEN. STOOL SAMPLE COLLECTED AND SENT TO LAB FOR OCCULT BLOOD.
--- NOTE | 2016-11-04 19:05 | NUR ---
GAVE NORCO PER PRN ORDER PER PT REQUEST FOR PAIN AT LEVEL 8/10. WILL MONITOR FOR EFFECTIVENESS.
--- NOTE | 2016-11-04 21:10 | NUR ---
HS SNACK GIVEN OF APPLESAUCE AND VANILLA WAFERS. WILL CONTINUE TO MONITOR FOR NEEDS.
--- NOTE | 2016-11-04 21:24 | NUR ---
HS MEDICATIONS GIVEN. FSBS 254 THIS CHECK REQUIRING COVERAGE WITH 6 UNITS OF INSULIN PER SLIDING SCALE.
[2016-11-05] VITALS: BP 108/59
--- NOTE | 2016-11-05 01:07 | NUR ---
PT HAD BATH AND BED CHANGE, FOLLOWING INCONTINENT BM. ROXANNE'S BUTTE PASTE APPLIED TO BILATERAL STAGE 2 PRESSURE ULCERS, QUARTER SIZE. PT TURNED PER TURN SCHEDULE. SIDE RAILS UP X2 FOR SAFETY. GUARD AT BEDSIDE.
[2016-11-05 04:00] VITALS: BP 125/51
[2016-11-05 05:31] LABS: BASOPHILS 0.2 % (0-2); EOSINOPHILS 4.4 % (0-7); IMMATURE GRANULOCYTES 0.2 % (0-5); LYMPHOCYTES 15.2 % (15-50); MCH 27.5 pg (26.0-34.0); MCHC 34.5 g/dL (31.0-37.0); MCV 79.7 fL (80.0-100.0); PLATELET COUNT 428 10x3/uL (130-400); RBC 3.64 10x6/uL (4.20-6.10); RDW 16.8 % (11.5-14.5)
[2016-11-05 05:34] LABS: WBC 12.5 10x3/uL (4.8-10.8)
[2016-11-05 06:01] LABS: ALBUMIN 1.6 g/dL (3.4-5.0); BILIRUBIN - TOTAL 0.6 mg/dL (0.2-1.3); CALCIUM 8.4 mg/dL (8.5-10.1); CARBON DIOXIDE 18.7 mmol/L (21.0-32.0); CREATININE - SERUM 1.1 mg/dL (0.6-1.3); POTASSIUM - SERUM 3.7 mmol/L (3.5-5.1); PROTEIN - SERUM 6.7 g/dL (6.4-8.2); VANCOMYCIN - RANDOM 16.5 ug/mL (10.0-20.0)
--- NOTE | 2016-11-05 06:18 | NUR ---
PT WITH NAUSEA AND VOMITING...RECEIVED ORDER TO GIVE ZOFRAN 4 MG IVP Q4 PRN. GAVE FIRST DOSE. PT DECLINES AM PO MEDS. WILL CONTINUE TO MONITOR FOR NEEDS.
--- NOTE | 2016-11-05 07:30 | NUR ---
PATIENT RECEIVED IN RIGHT LATERAL POSITION RESTING WITH EYES CLOSED. WAKES EASY. NO SIGNS OF DISTRESS NOTED. GUARD AT BEDSIDE. SIDE RAILS UP X2. BED IN LOW POSITION. CALL LIGHT IN REACH.
[2016-11-05 08:08] VITALS: BP 134/51
--- NOTE | 2016-11-05 09:03 | NUR ---
Alexandra the CM at the [facility] gave a number for the Dr to speak with the Dr at the senior living and this is also the number for the nurse to give report. [phone]
--- NOTE | 2016-11-05 09:25 | NUR ---
PATIENT IN RIGHT LATERAL POSITION RESTING WITH EYES CLOSED. WAKES EASY. ZOFRAN DRIP INITIATED PER ORDER. REFUSES ORAL MEDICATION DUE TO NAUSEA. GUARD PRESENT AT BEDSIDE. SIDE RAILS UP X2. BED IN LOW POSITION. CALL LIGHT IN REACH.
--- NOTE | 2016-11-05 12:28 | NUR ---
PATIENT REPOSITIONED IN BED. WELL TOLERATED. DENIES NEEDS. REFUSES TO EAT LUNCH. TRAY LEFT AT BEDSIDE. SIDE RAILS UP X2. BED IN LOW POSITION. CALL LIGHT IN REACH.
[2016-11-05 12:40] VITALS: BP 161/68
--- NOTE | 2016-11-05 14:00 | NUR ---
DRESSINGS TO LEFT BKA AND RIGHT FOOT INCISION CHANGED BY NESSA TRANSPORTATION DRIVER AND INSTRUCTOR.
[2016-11-05 16:00] VITALS: BP 166/70
--- NOTE | 2016-11-05 17:29 | NUR ---
ALERT IN BED. SCHEDULED MEDICATION ADMINISTERED. GUARD AT BEDSIDE. SIDE RAILS UP X2. BED IN LOW POSITION. CALL LIGHT IN REACH.
--- NOTE | 2016-11-05 19:00 | NUR ---
REPORT RECEIVED AND CARE OF PT ASSUMED. PT LYING IN HIGH GARCIA'S POSITION WATCHING TV. ARMED GUARD IS AT BEDSIDE. IV IN LEFT FA PATENT WITH NS INFUSING AT 150 ML / HR. JONES CATHETER DRAINING TO GRAVITY WITH YELLOW URINE IN COLLECTION BAG. TELEMETRY IN PLACE AND PT READING 82 SR AT THIS ASSESSMENT. DRESSINGS ON LEFT STUMP AND RIGHT FOOT CLEAN, DRY AND INTACT. WILL MONITOR CHANDLER FOR NEEEDS.
[2016-11-05 20:00] VITALS: BP 175/65
--- NOTE | 2016-11-05 20:00 | NUR ---
PT CONSENTED FOR AM EGD PROCEDURE. ALL QUESTIONS ANSWERED AND PRINTED MATERIALS ON SURGERY CENTER, ANESTHESIA, AND BLOOD TRANSFUSION GIVEN TO PT.
--- NOTE | 2016-11-05 21:00 | NUR ---
HS SNACK PROVIDED: APPLESAUCE AND VANILLA WAFERS. PT CONSUMED 100 %
--- NOTE | 2016-11-05 21:34 | NUR ---
HS MEDICATIONS GIVEN. FSBS 259 THIS CHECK, REQUIRING COVERAGE WITH 6 UNITS OF HUMALOG PER SLIDING SCALE.
--- NOTE | 2016-11-05 23:00 | NUR ---
GAVE PT HENRY CRACKERS AND PEANUT BUTTER PER REQUEST.
[2016-11-06] VITALS: BP 167/59
--- NOTE | 2016-11-06 | NUR ---
ALL FOOD AND DRINKS REMOVED FROM PT BEDSIDE TABLE NPO STATUS BEGINS NOW.
--- NOTE | 2016-11-06 01:04 | NUR ---
PT RESTING IN HIGH GARCIA'S POSITION WITH EYES CLOSED. RECORDER HELPER GRAVITY PROSPECTING IS AT BEDSIDE.
[2016-11-06 04:00] VITALS: BP 186/66
[2016-11-06 05:29] LABS: BASOPHILS 0.5 % (0-2); EOSINOPHILS 4.6 % (0-7); HEMATOCRIT 30.1 % (42.0-54.0); HEMOGLOBIN 10.4 g/dL (13.5-17.5); IMMATURE GRANULOCYTES 0.4 % (0-5); LYMPHOCYTES 14.6 % (15-50); MCH 27.7 pg (26.0-34.0); MCHC 34.6 g/dL (31.0-37.0); MCV 80.3 fL (80.0-100.0); MEAN PLATELET VOLUME 8.8 fL (7.4-10.4); MONOCYTES 11.1 % (2-11); NEUTROPHILS 68.8 % (40-80); PLATELET COUNT 381 10x3/uL (130-400); RBC 3.75 10x6/uL (4.20-6.10); RDW 16.8 % (11.5-14.5); WBC 11.1 10x3/uL (4.8-10.8)
[2016-11-06 05:50] LABS: ALBUMIN 1.6 g/dL (3.4-5.0); BILIRUBIN - TOTAL 0.6 mg/dL (0.2-1.3); CALCIUM 8.6 mg/dL (8.5-10.1); CARBON DIOXIDE 21.6 mmol/L (21.0-32.0); CREATININE - SERUM 1.1 mg/dL (0.6-1.3); POTASSIUM - SERUM 3.6 mmol/L (3.5-5.1); PROTEIN - SERUM 6.8 g/dL (6.4-8.2)
--- NOTE | 2016-11-06 07:25 | NUR ---
REPORT RECEIVED FROM EMBOSSING MACHINE TENDER NURSE. GUARD AT BEDSIDE. CALL LIGHT IN REACH.
--- NOTE | 2016-11-06 08:26 | NUR ---
ASSESSMENT COMPLETED. NORCO PO WITH AM MEDS. PREOP MED ADMINISTERED. PLACED IN CONTACT ISOLATION AND EXPLAINED TO PATIENT AND GUARD REASON FOR ISOLATION. ROSSANA MAT ALARM IS ON. CALL LIGHT IN REACH. WILL CONTINUE WITH PLAN OF CARE.
[2016-11-06 09:00] VITALS: BP 181/74
--- NOTE | 2016-11-06 10:20 | NUR ---
TO GI LAB VIA BED.
[2016-11-06 11:10] LABS: HEPATITIS C ANTIBODY >11.0 (0.0-0.9)
--- NOTE | 2016-11-06 11:51 | NUR ---
BACK IN ROOM AT THIS TIME. BLOOD SUGAR IS 131. RAJESHN IVPB. CALL LIGHT IN REACH.
--- NOTE | 2016-11-06 13:00 | NUR ---
RESTING WITH EYES CLOSED. RESP EVEN AND UNLABORED. CALL LIGHT IN REACH.
[2016-11-06 13:13] VITALS: BP 143/50
--- NOTE | 2016-11-06 15:27 | NUR ---
RESTING QUIETLY IN BED WITH EYES CLOSED. RESP EVEN,NONLABORED. GUARD AT BEDSIDE. CONTACT ISOLATION PRECAUTIONS IN PLACE.
--- NOTE | 2016-11-06 16:49 | NUR ---
AFTERNOON MEDS WITH NORCO PO. BLOOD SUGAR 210 SO HUMALOG 4 UNITS SUBQ TO LEFT ARM. ZOSYN IVPB. GUARD AT BEDSIDE. CALL LIGHT IN REACH.
[2016-11-06 17:58] VITALS: BP 140/69
--- NOTE | 2016-11-06 18:50 | NUR ---
NO CHANGES IN INITIAL ASSESSMENT. CALL LIGHT IN REACH. REFUSES SCDs. ALARM ON. GUARD IN ROOM. WILL CONTINUE WITH PLAN OF CARE.
[2016-11-06 19:00] VITALS: BP 138/57
--- NOTE | 2016-11-06 19:00 | NUR ---
REPORT RECEIVED AND CARE OF PT ASSUMED. PT LYING IN SEMI GARCIA'S POSITION WATCHING TV. OFFICER IS AT BEDSIDE. IV IN LEFT FA PATENT WITH NS INFUSING AT 150 ML / HR, AND ZOFRAN INFUSING AT 4.7 ML/HR. TELEMETRY IN PLACE AND READING SR AT THIS ASSESSMENT. JONES CATHETER DRAINING TO GRAVITY WITY YELLOW URINE IN COLLECTION BAG. DRESSINGS ON RIGHT FOOT AND LEFT STUMP CLEAN , DRY AND INTACT. WILL MONITOR CLOSLEY FOR NEEDS. CALL LIGHT WITHIN REACH.
--- NOTE | 2016-11-06 21:05 | NUR ---
HS MEDICATIONS GIVEN. FSBS 199 THIS CHECK REQUIRING COVERAGE WITH 2 UNITS OF HUMALOG PER SLIDING SCALE.
--- NOTE | 2016-11-06 21:10 | NUR ---
HS SNACK OF PUDDING AND VANILLA WAFERS GIVEN TO PT. WILL CONTINUE TO MONITOR FOR NEEDS.
[2016-11-07] VITALS: BP 130/51; BP 153/63
[2016-11-07 03:30] VITALS: BP 182/67
--- NOTE | 2016-11-07 04:30 | NUR ---
PT BATHED AND ALL LINENS AND GOWN CHANGED. PT HAS QUARTER SIZE STAGE 2 PRESSURE ULCER ON LEFT BUTTOCK...APPLIED ROXANNE'S.
--- NOTE | 2016-11-07 05:00 | NUR ---
GAVE HYDRALAZINE 10 MG FOR ELEVATED AT 182/67. WILL MONITOR FOR EFFECTIVENESS.
[2016-11-07 05:22] LABS: BASOPHILS 0.4 % (0-2); EOSINOPHILS 5.8 % (0-7); HEMATOCRIT 30.6 % (42.0-54.0); HEMOGLOBIN 10.5 g/dL (13.5-17.5); IMMATURE GRANULOCYTES 0.2 % (0-5); LYMPHOCYTES 19.8 % (15-50); MCH 27.3 pg (26.0-34.0); MCHC 34.3 g/dL (31.0-37.0); MCV 79.7 fL (80.0-100.0); MEAN PLATELET VOLUME 8.6 fL (7.4-10.4); MONOCYTES 10.7 % (2-11); NEUTROPHILS 63.1 % (40-80); PLATELET COUNT 407 10x3/uL (130-400); RBC 3.84 10x6/uL (4.20-6.10); RDW 16.8 % (11.5-14.5)
[2016-11-07 05:47] LABS: ALBUMIN 1.6 g/dL (3.4-5.0); ANION GAP 11.3 mmol/L (8-16); BILIRUBIN - TOTAL 0.58 mg/dL (0.2-1.3); CALCIUM 8.2 mg/dL (8.5-10.1); CARBON DIOXIDE 23.3 mmol/L (21.0-32.0); CREATININE - SERUM 1.1 mg/dL (0.6-1.3); POTASSIUM - SERUM 3.6 mmol/L (3.5-5.1); PROTEIN - SERUM 6.9 g/dL (6.4-8.2)
--- NOTE | 2016-11-07 07:35 | NUR ---
ULTRASOUND OF GALLBLADDER BEING PERFORMED.
--- NOTE | 2016-11-07 09:15 | NUR ---
ASSESSMENT COMPLETE. IV TO L FA PATENT. NS INFUSING AT 150 CC/HR AND ZOFRAN AT 4.7 CC/HR VIA PUMP. DRESSINGS INTACT TO L RESIDUAL LIMB AND R FOOT. JONES PATENT DRAINING YELLOW URINE. DAY CARE CENTER DIRECTOR SHOWING SR 71 PER TECH. GUARD AT BEDSIDE.
--- NOTE | 2016-11-07 11:46 | NUR ---
RESTING QUIETLY WITH EYES CLOSED. RESP EVEN,NONLABORED.
[2016-11-07 15:51] VITALS: BP 146/64
--- NOTE | 2016-11-07 16:45 | NUR ---
DRESSINGS TO L BKA AND R FOOT CHANGED. LEONARDO INTACT TO L BKA WITH SMALL AMOUNT OF BROWN DRAINAGE NOTED ON OLD DRESSING. INCISION COVERED WITH XEROFORM,4X4'S AND KERLIX. R FOOT WOUND COVERED WITH TELFA, 4X4'S AND KERLIX.
--- NOTE | 2016-11-07 19:00 | NUR ---
REPORT RECEIVED AND CARE OF PT ASSUMED. PT LYING IN SEMI GARCIA'S POSITION WATCHING TV. IV IN LEFT FA PATENT WITH NS INFUSING AT 150 ML / HR. JONES CATHETER DRAINING TO GRAVITY WITH YELLOW URINE IN COLLECTION BAG. TELEMETRY IN USE AND READING 78 SR AT THIS ASSESSMENT. DRESSINGS ON RIGHT FOOT AND LEFT STUMP CLEAN AND DRY. WILL MONITOR CLOSLEY FOR NEEDS. FASHION MARKETER IS AT BEDSIDE.
[2016-11-07 20:00] VITALS: BP 185/68
--- NOTE | 2016-11-07 22:03 | NUR ---
HS MEDICATIONS GIVEN. WILL CONTINUE TO MONITOR FOR NEEDS.
--- NOTE | 2016-11-08 | NUR ---
CLEARED ALL FOOD AND DRINK FROM BEDSIDE TABLE. NPO STATUS BEGINS NOW.
[2016-11-08 04:00] VITALS: BP 160/75
--- NOTE | 2016-11-08 05:25 | NUR ---
PT RECEIVED HIBACLENS BATH AND LINEN CHANGE.
[2016-11-08 05:42] LABS: BASOPHILS 0.3 % (0-2); EOSINOPHILS 4.8 % (0-7); HEMATOCRIT 30.7 % (42.0-54.0); HEMOGLOBIN 10.5 g/dL (13.5-17.5); IMMATURE GRANULOCYTES 0.3 % (0-5); LYMPHOCYTES 18.4 % (15-50); MCH 27.3 pg (26.0-34.0); MCHC 34.2 g/dL (31.0-37.0); MCV 79.9 fL (80.0-100.0); MEAN PLATELET VOLUME 8.8 fL (7.4-10.4); MONOCYTES 11.8 % (2-11); NEUTROPHILS 64.4 % (40-80); PLATELET COUNT 434 10x3/uL (130-400); RBC 3.84 10x6/uL (4.20-6.10); RDW 16.7 % (11.5-14.5); WBC 11.6 10x3/uL (4.8-10.8)
[2016-11-08 06:10] LABS: ALBUMIN 1.7 g/dL (3.4-5.0); ALKALINE PHOSPHATASE 389 U/L (46-116); ALT (SGPT) 117 U/L (10-68); BILIRUBIN - TOTAL 0.68 mg/dL (0.2-1.3); CALC OSMOLALITY 275 mosm/kg (275-300); CARBON DIOXIDE 22.8 mmol/L (21.0-32.0); CHLORIDE - SERUM 105 mmol/L (98-107); GLUCOSE 147 mg/dL (74-106); POTASSIUM - SERUM 3.5 mmol/L (3.5-5.1); PROTEIN - SERUM 6.4 g/dL (6.4-8.2); SODIUM 137 mmol/L (136-145); UREA NITROGEN 9 mg/dL (7-18); eGFR NON AFRICAN AMERICAN 78 mL/min (90-120)
--- NOTE | 2016-11-08 07:05 | NUR ---
PATIENT RECEIVED IN MID GARCIA POSITION RESTING WITH EYES CLOSED. RESPIRATIONS EVEN AND UNLABORED. SIDE RAILS UP X2. BED IN LOW POSITION. GUARD AT BEDSIDE.
--- NOTE | 2016-11-08 08:10 | NUR ---
PATIENT IN LOW GARCIA POSITION RESTING WITH EYES CLOSED. RESPIRATIONS EVEN AND UNLABORED. WAKES EASY. IV MEDICATION ADMINISTERED SCHEDULED COREG ADMINISTERED WITH SIP OF WATER. ALL OTHER ORAL MEDICATION HELD FOR NPO STATUS. SIDE RAILS UP X2. BED IN LOW POSITION. CALL LIGHT IN REACH. GUARD AT BEDSIDE.
[2016-11-08 08:54] VITALS: BP 146/68
--- NOTE | 2016-11-08 10:27 | NUR ---
DANNY WITH [facility] CALLED AND REQUESTED UPDATED CLINICAL FRAXED REQUESTED
--- NOTE | 2016-11-08 11:00 | NUR ---
ACCU CHECK 117. NPO PER ORDER FOR SURGERY. SIDE RAILS UP X2. BED IN LOW POSITION. CALL LIGHT IN REACH.
[2016-11-08 12:19] VITALS: BP 132/70
--- NOTE | 2016-11-08 13:39 | NUR ---
NUTRITION F/U CHART REVIEWED. PT IN ISOLATION. CURRENTLY NPO FOR PROCEDURE. WILL PROVIDE DIET WHEN RESUMED, MONITOR INTAKE. RD FOLLOWING
--- NOTE | 2016-11-08 14:45 | NUR ---
PATIENT IN LEFT LATERAL POSITION RESTING QUIETLY. NO SIGNS OF DISTRESS NOTED. GUARD AT BEDSIDE. SIDE RAILS UP X2. BED IN LOW POSITION. CALL LIGHT IN REACH.
--- NOTE | 2016-11-08 17:00 | NUR ---
DRESSING TO LEFT STUMP AND RIGHT FOOT CHANGED PER ORDER. WELL TOLERATED. SIDE RAILS UP X2. BED IN LOW POSITION. CALL LIGHT IN REACH. GUARD AT BEDSIDE.
[2016-11-08 20:00] VITALS: BP 147/69
--- NOTE | 2016-11-08 20:00 | NUR ---
ASSESSMENT PER FLOWSHEET. IV PATENT LEFT FOREARM OF OF NS AT 150CC'S/HR SITE CLEAR. GUARD AT BEDSIDE. DRESSING TO RT FOOT C/D/I. DRESSING TO LEFT STUMP C/D/I. LEONARDO INTACT. JONES TO BS DRAINAGE YELLOW URINE. TELM. SHOWS SR WITH HR 90.PT IN CONTACT ISOLATION. BED ALARM BED ACTIVATED.SR UP X2 CALL LIGHT WITHIN REACH.
--- NOTE | 2016-11-08 21:30 | NUR ---
MEDS GIVEN PER MAR. SZFL=973. HUMALOG INSULIN 4 UNITS GIVEN SUBC PER S/S.
[2016-11-08 23:44] VITALS: BP 132/43
--- NOTE | 2016-11-09 | NUR ---
REPOSITIONED IN BED SR UP X2 CALL LIGHT WITHIN REACH GUARD AT BEDSIDE.
--- NOTE | 2016-11-09 02:30 | NUR ---
EYES CLOSED RESPIRATIONS WITH EASE AND UNLABORED.
--- NOTE | 2016-11-09 03:56 | NUR ---
EYES CLOSED RESPIRATIONS WITH EASE AND UNLABORED.
[2016-11-09 04:00] VITALS: BP 148/68
[2016-11-09 05:55] LABS: BASOPHILS 0.3 % (0-2); EOSINOPHILS 5.8 % (0-7); HEMATOCRIT 30.3 % (42.0-54.0); HEMOGLOBIN 10.2 g/dL (13.5-17.5); IMMATURE GRANULOCYTES 0.2 % (0-5); LYMPHOCYTES 20.2 % (15-50); MCH 27.4 pg (26.0-34.0); MCHC 33.7 g/dL (31.0-37.0); MCV 81.5 fL (80.0-100.0); MEAN PLATELET VOLUME 8.7 fL (7.4-10.4); MONOCYTES 10.8 % (2-11); NEUTROPHILS 62.7 % (40-80); PLATELET COUNT 413 10x3/uL (130-400); RBC 3.72 10x6/uL (4.20-6.10); RDW 16.8 % (11.5-14.5); WBC 11.7 10x3/uL (4.8-10.8)
[2016-11-09 06:28] LABS: ALBUMIN 1.6 g/dL (3.4-5.0); ANION GAP 11.1 mmol/L (8-16); BILIRUBIN - TOTAL 0.5 mg/dL (0.2-1.3); CALCIUM 8.3 mg/dL (8.5-10.1); CARBON DIOXIDE 23.4 mmol/L (21.0-32.0); CREATININE - SERUM 1.1 mg/dL (0.6-1.3); POTASSIUM - SERUM 3.5 mmol/L (3.5-5.1); PROTEIN - SERUM 6.4 g/dL (6.4-8.2)
--- NOTE | 2016-11-09 07:10 | NUR ---
PATIENT RECEIVED IN MID GARCIA POSITION. NO SIGNS OF DISTRESS NOTED. GUARD AT BEDSIDE. NO NEEDS VOICED. SIDE RAILS UP X2. BED IN LOW POSITION. CALL LIGHT IN REACH.
--- NOTE | 2016-11-09 08:20 | NUR ---
PATIENT REPOSITIONED IN BED. WELL TOLERATED. SCHEDULED MEDICATION ADMINISTERED. BREAKFAST TRAY SET UP. GUARD AT BEDSIDE. SIDE RAILS UP X2. BED IN LOW POSITION. CALL LIGHT IN REACH.
[2016-11-09 09:33] VITALS: BP 160/67
--- NOTE | 2016-11-09 10:45 | NUR ---
DRESSINGS TO LEFT STUMP AND RIGHT FOOT CHANGED PER ORDERS. WELL TOLATED. DENIES NEEDS. GUARD AT BEDSIDE. SIDE RAILS UP X2. BED IN LOW POSITION. CALL LIGHT IN REACH.
[2016-11-09 12:51] VITALS: BP 148/63
--- NOTE | 2016-11-09 15:30 | NUR ---
ALERT IN BED WATCHING TV. SCHEDULED MEDICATION ADMINISTERED. DENIES NEEDS. SIDE RAILS UP X3. BED IN LOW POSITION. CALL LIGHT IN REACH. GUARD AT BEDSIDE.
[2016-11-09 16:49] VITALS: BP 157/62
[2016-11-09 20:00] VITALS: BP 122/62
--- NOTE | 2016-11-09 20:00 | NUR ---
ASSESSMENT PER FLOWSHEET. IV PATENT LEFT FOREARM OF NS AT 150CC'S/HR SITE CLEAR GUARD AT BEDSIDE.JONES TO BEDSIDE DRAINAGE.ZOFRAN GTT AT 4.7CC'S.HR. 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 DRESSING TO RT FOOT AMPUTATED TOES SITE C/D/I.
--- NOTE | 2016-11-09 22:00 | NUR ---
MEDS GIVEN PER MAR.
--- NOTE | 2016-11-10 | NUR ---
INC KLAUDIA CLEANED AND DRIED. PARTIAL LINENS CHANGED.
--- NOTE | 2016-11-10 02:00 | NUR ---
EYES CLOSED RESPIRATIONS WITH EASE AND UNLABORED.
[2016-11-10 04:00] VITALS: BP 128/66
--- NOTE | 2016-11-10 05:30 | NUR ---
EYES CLOSED RESP[IRATIONS WITH EASE AND UNLABORED. LAB HERE TO DRAW BLOODWORK.
[2016-11-10 06:00] LABS: BASOPHILS 0.2 % (0-2); EOSINOPHILS 6.3 % (0-7); HEMATOCRIT 31.9 % (42.0-54.0); IMMATURE GRANULOCYTES 0.3 % (0-5); LYMPHOCYTES 18.3 % (15-50); MCH 27.8 pg (26.0-34.0); MCHC 34.5 g/dL (31.0-37.0); MCV 80.6 fL (80.0-100.0); MEAN PLATELET VOLUME 8.7 fL (7.4-10.4); MONOCYTES 9.6 % (2-11); NEUTROPHILS 65.3 % (40-80); PLATELET COUNT 413 10x3/uL (130-400); RBC 3.96 10x6/uL (4.20-6.10); RDW 16.5 % (11.5-14.5); WBC 11.4 10x3/uL (4.8-10.8)
[2016-11-10 06:21] LABS: ALBUMIN 1.7 g/dL (3.4-5.0); ANION GAP 12.8 mmol/L (8-16); BILIRUBIN - TOTAL 0.47 mg/dL (0.2-1.3); CARBON DIOXIDE 23.7 mmol/L (21.0-32.0); CREATININE - SERUM 1.2 mg/dL (0.6-1.3); POTASSIUM - SERUM 3.5 mmol/L (3.5-5.1); PROTEIN - SERUM 6.9 g/dL (6.4-8.2)
--- NOTE | 2016-11-10 06:40 | NUR ---
BLOOD NXLSXWQ=083. 4 UNITS HUMALOG INSULIN GIVEN SUBC PER S/S.
--- NOTE | 2016-11-10 07:30 | NUR ---
RECIEVED PT DURING WALKING ROUNDS. PT RESTING IN BED WITH NO COMPLAINTS OF PAIN OR DISCOMFORT AT THIS TIME. ASSESSMENT DONE PER FLOWSHEET. BED IN LOW POSITION AND CALL LIGHT WITHIN REACH. WILL CONTINUE TO MONITOR.
[2016-11-10 08:38] VITALS: BP 139/75
--- NOTE | 2016-11-10 10:33 | CN ---
PATIENT NAME:KAYLIE LONG MEDICAL RECORD: [id number] : 44 LOCATION:D.[facility] ADMIT DATE: 11/02/16 ACCOUNT: [id number] CONSULTING PHYSICIAN: ISAIAH MCKEON MD REFERRING PHYSICIAN: ASHLEY BOWER MD DATE OF CONSULTATION: 11/09/2016 HISTORY OF PRESENT ILLNESS: A 76-year-old gentleman with a history of peripheral vascular disease, who we are seeing preoperatively. 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 There are P-waves retrograde. He has a history of moderate , entirely asymptomatic from this standpoint, we are seeing him preoperatively. PAST MEDICAL HISTORY: Includes: 1. History of peripheral vascular disease. 2. Cerebrovascular disease. 3. Hypertension. 4. Hypothyroidism, on replacement. 5. Diabetes mellitus. ALLERGIES: None known. MEDICATIONS: Include insulin per scale, Synthroid 88 mcg daily, Zantac 150 b.i.d., carvedilol 3.125 daily, lisinopril 5 daily, atorvastatin 40 daily and Plavix 75 daily. SOCIAL HISTORY: Currently incarcerated. Previous history of alcohol abuse. REVIEW OF SYSTEMS: The patient reports easy bruising but reports no swollen glands. The patient reports no fever, no night sweats, no significant weight gain, no significant weight loss. No significant exercise tolerance. The patient reports no dry eyes, no irritation, no vision change. Patient reports no difficulty hearing and no ear pain. Patient reports no frequent nose bleeds or nose and sinus problems. Patient reports on arm pain on exertion. No shortness of breath while lying down. No history of heart murmur. Patient reports no cough, no wheezing or coughing up blood. Patient reports no abdominal pain, no vomiting. Normal appetite. No diarrhea and not vomiting blood. No nausea and no constipation. Patient reports no incontinence. No difficulty urinating. No hematuria. No increased frequency. Patient reports no muscle aches. No weakness, no arthralgias, no back pain. No swelling of the extremities. Patient reports no abnormal mole, no jaundice, no rashes. Reports no loss of consciousness. No weakness and no numbness. No seizures, dizziness, or headaches. The patient reports no depression, no sleep disturbance, feeling safe in a relationship and no alcohol abuse. Patient reports on fatigue. Reports no runny nose or sinus pressure. No itching, no hives, and no frequent sneezing. PHYSICAL EXAMINATION: GENERAL: Pleasant gentleman in no acute distress, somewhat a poor historian. VITAL SIGNS: Blood pressure 148/68, pulse 72 and regular. HEENT: Normocephalic and atraumatic. NECK: No bruits noted. HEART: Regular, III/ systolic ejection murmur. LUNGS: Fairly good air movement. ABDOMEN: Soft, nontender. CONSULT REPORT [id number] KAYLIE LONG EXTREMITIES: Without edema. 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 No specific treatment recommended at this point. No contraindication to surgery, both from orthopedic and in reviewing notes, may need a cholecystectomy at some point. No contraindication to this as well. Thank you for this consultation. TRANSINT:[id number] Voice Confirmation ID: [id number] DOCUMENT ID: [id number] ISAIAH MCKEON MD at 1033 CC: [id number] DICTATION DATE: 11/09/16 0851 BLINDSTITCH MACHINE OPERATOR: 11/09/[address] [facility] [address] [id number]
--- NOTE | 2016-11-10 11:40 | NUR ---
SPOKE WITH GUIDO STEEN APN AT THIS TIME ABOUT PTS FLUIDS, RECIEVED ORDER TO ADMINISTER FLUIDS AT [facility]. WILL CONTINUE TO FOLLOW PLAN OF CARE.
[2016-11-10 12:47] VITALS: BP 143/64
[2016-11-10 16:24] VITALS: BP 141/65
[2016-11-10 19:00] VITALS: BP 125/60
--- NOTE | 2016-11-10 20:00 | NUR ---
ASSESSMENT PE FLOWSHEET. IV PATENT LEFT FOREARM OF NS AT [facility] AT 4.7CC'S/HR SITE CLEAR. DRESSINGS TO RT FOOT AND LEFT STUMP C/D/I. GUARD AT BEDSIDE. BED ALARM BED ACTIVATED SR UP X2 CALL LIGHT WITHIN REACH. JONES TO BEDSIDE DRAINAGE WITH YELLOW URINE NOTED.
--- NOTE | 2016-11-10 21:00 | NUR ---
MEDS GIVEN PER MAR. AFBL=958. 4 UNITS HUMALOG INSULIN GIVEN SUBC PER S/S TO LEFT ARM.
--- NOTE | 2016-11-11 | NUR ---
EYES CLOSED RESPIRATIONS WITH EAS AND UNLABORED.
--- NOTE | 2016-11-11 02:17 | NUR ---
RESTING QUIETLY TURNS SELF IN BED.
[2016-11-11 04:00] VITALS: BP 139/68
[2016-11-11 06:14] LABS: BASOPHILS 0.3 % (0-2); EOSINOPHILS 6.8 % (0-7); HEMATOCRIT 32.2 % (42.0-54.0); HEMOGLOBIN 10.9 g/dL (13.5-17.5); IMMATURE GRANULOCYTES 0.3 % (0-5); LYMPHOCYTES 17.4 % (15-50); MCH 27.6 pg (26.0-34.0); MCHC 33.9 g/dL (31.0-37.0); MCV 81.5 fL (80.0-100.0); MEAN PLATELET VOLUME 8.8 fL (7.4-10.4); MONOCYTES 8.1 % (2-11); NEUTROPHILS 67.1 % (40-80); PLATELET COUNT 436 10x3/uL (130-400); RBC 3.95 10x6/uL (4.20-6.10); RDW 16.6 % (11.5-14.5); WBC 11.3 10x3/uL (4.8-10.8)
--- NOTE | 2016-11-11 06:25 | NUR ---
ASSESSED PT BILATERAL CLEAR BREATH SOUNDS REFUSED 0600 TX. WILL NOTIFY NURSE TO THE POSSIBLITY OF DISCONTINUATION DUE TO REFUSAL. SPO2 98% ON RA WITH NO S/S OF RESPIRATORY DISTRESS.
[2016-11-11 06:28] LABS: ALBUMIN 1.7 g/dL (3.4-5.0); ANION GAP 6.2 mmol/L (8-16); BILIRUBIN - TOTAL 0.44 mg/dL (0.2-1.3); CALCIUM 8.5 mg/dL (8.5-10.1); CARBON DIOXIDE 28.7 mmol/L (21.0-32.0); CREATININE - SERUM 1.3 mg/dL (0.6-1.3); POTASSIUM - SERUM 3.9 mmol/L (3.5-5.1)
--- NOTE | 2016-11-11 07:30 | NUR ---
RECIEVED PT DURING WALKING ROUNDS, PT RESTING IN BED WITH NO COMPLAINTS OF PAIN OR DISCOMFORT AT THIS TIME. DISCUSSED SURGERY PLAN WITH PT AT THIS TIME. ASSESSMENT DONE PER FLOWSHEET. BED IN LOW POSITION AND CALL LIGHT WITHIN REACH. WILL CONTINUE TO MONITOR.
--- NOTE | 2016-11-11 07:58 | NUR ---
Surgical wound to left leg (BKA) cleaned with wound cleanser, patted dry with 4x4 gauze. 24 rashida intact to stump. Open area to wound measures 2.6 x 5x 1.8 cm. Open area has beefy red wound bed, small amt of bloody drainage. Pt has decreased sensation to this area. Stump wrapped with Kerlix, taped to secure. Pt tolerated with no c/o pain, was able to lift leg to assist with wrapping. Area to rt foot where toes have been removed dry and closed. Cleaned with wound cleanser, patted dry, wraped with Kerlix and taped to secure. Pt also tolerated this with no c/o pain. Area to lower rt buttock (0.8 x 0.8 cm), upper left buttock (0.3 x 0.3) and upper left buttock (0.3 x 0.4) coated with Eugene's Butt Paste. These 3 areas are too shallow to measure, pink/white at wound bed with no edema, no erythema, no drainage. Teaching performed regarding shifting positions frequently to redistribute pressure. Pt was able to turn to one side with assistance, but verbalized understanding of teaching.
[2016-11-11 08:31] VITALS: BP 115/74
--- NOTE | 2016-11-11 09:30 | NUR ---
DRESSING CHANGED TO RIGHT FOOT AT THIS TIME, DRESSING TO LEFT STUMP CHANGED BY CK GUNTER THIS AM. PT TOLERATED WELL. BED IN LOW POSITION AND CALL LIGHT WITHIN REACH. WILL CONTINUE TO MONITOR.
--- NOTE | 2016-11-11 10:33 | NUR ---
PT REFUSED RESPIDRATORY TX SPO2 98% PT NO OBVIOUS RESP DISTRESS
[2016-11-11 12:40] VITALS: BP 100/45
[2016-11-11 16:15] VITALS: BP 138/58
--- NOTE | 2016-11-11 19:35 | NUR ---
ASSESMENT PER FLOW SHEET.GUARD AT BEDSIDE.SNACKS PROVIDED PER PT REQUEST.MONITOR FOR NEEDS
[2016-11-11 20:00] VITALS: BP 141/58
[2016-11-12 00:17] VITALS: BP 99/42
--- NOTE | 2016-11-12 00:45 | NUR ---
CONSENTS TO CHART FOR SURGERY ORDERED.NPO. MONITOR FOR NEEDS
[2016-11-12 04:00] VITALS: BP 112/73
--- NOTE | 2016-11-12 05:18 | NUR ---
REMAINS WITHOUT CHANGE FROM INITIAL SHIFT ASSESSMENT.CONT PLAN OF CARE
[2016-11-12 05:30] LABS: BASOPHILS 0.3 % (0-2); EOSINOPHILS 6.9 % (0-7); HEMATOCRIT 31.7 % (42.0-54.0); HEMOGLOBIN 10.6 g/dL (13.5-17.5); IMMATURE GRANULOCYTES 0.2 % (0-5); MCHC 33.4 g/dL (31.0-37.0); MCV 80.9 fL (80.0-100.0); MONOCYTES 10.9 % (2-11); NEUTROPHILS 59.7 % (40-80); PLATELET COUNT 461 10x3/uL (130-400); RBC 3.92 10x6/uL (4.20-6.10); RDW 16.7 % (11.5-14.5); WBC 11.3 10x3/uL (4.8-10.8)
[2016-11-12 05:50] LABS: ANION GAP 9.5 mmol/L (8-16); CARBON DIOXIDE 27.4 mmol/L (21.0-32.0); POTASSIUM - SERUM 3.9 mmol/L (3.5-5.1)
[2016-11-12 06:31] LABS: ALBUMIN 1.7 g/dL (3.4-5.0); BILIRUBIN - TOTAL 0.44 mg/dL (0.2-1.3); CALCIUM 8.6 mg/dL (8.5-10.1); CREATININE - SERUM 1.5 mg/dL (0.6-1.3); PROTEIN - SERUM 6.9 g/dL (6.4-8.2)
--- NOTE | 2016-11-12 06:42 | NUR ---
HEPI CLENS BATH COMPLETE.REMAINS NPO
--- NOTE | 2016-11-12 07:30 | NUR ---
RECIEVED PT DURING WALKING ROUNDS. PT RESTING IN BED WITH NO COMPLAINTS OF PAIN OR DISCOMFORT AT THIS TIME. ASSESSMENT DONE PER FLOWSHEET, BED IN LOW POSITION AND CALL LIGHT WITHIN REACH. WILL CONTINUE TO MONITOR.
[2016-11-12 08:33] VITALS: BP 135/65
--- NOTE | 2016-11-12 09:52 | NUR ---
DR OSBORNE STATED THAT HE WAS TAKING PATIENT BACK TO SURGERY TODAY AND ANTICIPATE D/C TOMORROW. DR OSBORNE CALLED AND GIVEN DR GARVIN'S NUMBER FOR HIM TO DO THE DOC TO DOC TOGET PATIENT DISCHARGED BACK TO [facility].
[2016-11-12 12:48] VITALS: BP 112/69
--- NOTE | 2016-11-12 15:00 | NUR ---
PT TAKEN TO SURGERY AT THIS TIME
[2016-11-12 18:15] VITALS: BP 164/77
[2016-11-13] VITALS: BP 135/63
--- NOTE | 2016-11-13 02:04 | NUR ---
PATIENT LAYING IN BED NO COMPLAINTS OF PAIN OR NAUSEA. GUARD AT BEDSIDE. WOUNDVAC INTACT. JONES INTACT. NO NEEDS NOTED.
--- NOTE | 2016-11-13 02:25 | NUR ---
PATIENT LAYING IN BED WITH TRANSPORTATION EQUIPMENT PAINTER AT BEDSIDE. PIV INFUSING NS@30, ZOFRAN@4.7. JONES CATHETER IN PLACE AND WOUND VAC TO LEFT BKA SEALED WITH SUCTION. NO NEEDS NOTED.
[2016-11-13 04:00] VITALS: BP 138/57
[2016-11-13 05:26] LABS: BASOPHILS 0.2 % (0-2); EOSINOPHILS 3.9 % (0-7); HEMATOCRIT 32.2 % (42.0-54.0); HEMOGLOBIN 10.8 g/dL (13.5-17.5); IMMATURE GRANULOCYTES 0.3 % (0-5); LYMPHOCYTES 13.8 % (15-50); MCH 27.4 pg (26.0-34.0); MCHC 33.5 g/dL (31.0-37.0); MCV 81.7 fL (80.0-100.0); MEAN PLATELET VOLUME 8.8 fL (7.4-10.4); MONOCYTES 9.3 % (2-11); NEUTROPHILS 72.5 % (40-80); PLATELET COUNT 476 10x3/uL (130-400); RBC 3.94 10x6/uL (4.20-6.10); RDW 16.8 % (11.5-14.5); WBC 13.5 10x3/uL (4.8-10.8)
[2016-11-13 05:50] LABS: ALBUMIN 1.8 g/dL (3.4-5.0); ANION GAP 9.5 mmol/L (8-16); BILIRUBIN - TOTAL 0.38 mg/dL (0.2-1.3); CALCIUM 8.8 mg/dL (8.5-10.1); CARBON DIOXIDE 27.6 mmol/L (21.0-32.0); CREATININE - SERUM 1.5 mg/dL (0.6-1.3); POTASSIUM - SERUM 4.1 mmol/L (3.5-5.1); PROTEIN - SERUM 7.3 g/dL (6.4-8.2)
[2016-11-13] MEDS ORDERED: LEVAQUIN750 MG PO (08:49)
[2016-11-13 09:45] VITALS: BP 117/53
--- NOTE | 2016-11-13 09:55 | NUR ---
PATIENT ALERT IN BED WITH PRIMARY NURSE MARIA GUADALUPE ISRAEL AND GUARD AT BEDSIDE. NO SIGNS OF DISTRESS NOTED. SIDE RAILS UP X2. BED IN LOW POSITION. CALL LIGHT IN REACH.
[2016-11-13 13:04] VITALS: BP 148/70
--- NOTE | 2016-11-13 13:35 | NUR ---
LATE ENTRY 0945 PLAN FOR PATIENT TO BE DISCHARGED TO [facility] IN [place], [place] VIA THEIR TRANSPORT. PRIMARY NURSE ADVISES THAT DR OSBORNE HAS SPOKEN WITH THE RECEIVING MD. PRIMARY NURSE, STEPHAN, SPOKE WITH CM REGARDING WOUND VAC. CM ADVISED HER TO CALL REPORT TO RECEIVING NURSE AND ADVISE HER OF WOUND VAC NEED. THE FACILITY HAS THEIR OWN WOUND VAC SYSTEM. PLAN FOR PATIENT TO BE DISCHARGED AFTER LUNCH.
--- NOTE | 2016-11-13 14:42 | NUR ---
DISCHARGE INSTRUCTIONS GIVEN TO PT AND REPORT CALLED TO SENIOR [facility]ARE, QUESTIONS ANSWERED, IV REMOMED TIP INTACT, DISCHARGED PER WC WITH GUARDS
--- NOTE | 2016-11-15 11:18 | OP ---
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 POSTOPERATIVE DIAGNOSIS: Open wound of left below-knee amputation stump. PROCEDURE: 1. Revision of left BKA stump with substantial excisional debridement. 2. Wound VAC application, left BKA stump. SURGEON: Mary Jo Osborne MD. ANESTHESIA: General. INTRAOPERATIVE COMPLICATIONS: None. SUMMARY OF PATHOLOGIC FINDINGS: The patient had quite a bit of muscle; however, no jerry purulence was noted. It is of note that the patient came in septic, and has since been found to have multiple medical problems, stabilized for surgery and brought today. OPERATIVE SUMMARY IN DETAIL: After obtaining the appropriate preoperative orthopedic surgery consent as well as anesthetic consultation, evaluation and clearance, the patient was brought to the operating room and placed on the operating table in supine position. After general laryngeal mask was administered, the patient's left lower extremity was prepped and draped in routine sterile fashion. Previously placed sutures were taken out at wound exploration then lead to scalpel excision with copious amounts of muscle fascia tissue. The patient also had exposed bone excision, was carried out with rongeur and scalpel until bleeding muscle was met. Wound margins were also excised back to bleeding skin. Copious lavage was then followed by approximation of the tissue and a wound VAC put in place. New rashida were put across the original wound as the healing of this was still tenuous. Wound VAC was set at 125 mm, continuous suction at medium intensity with good seal. The patient was awakened, taken to recovery room in stable condition. All final needle and sponge counts were correct. TRANSINT:[id number] Voice Confirmation ID: [id number] DOCUMENT ID: [id number] DYLON HAWTHORNE, MARY JO VIDALES at 1118 CC: [id number] DICTATION DATE: 11/12/16 1726 CUSTOMER LIAISON: 11/13/16 0059 DIS IN 11/13/[id number] [place] [address]
== END 2016-11-13 14:45 | DRG 854 ==
LOC: D.ER 11:14 → D.MS 17:45
PROVIDERS: Family Medicine; Family Medicine Adult Medicine; Orthopaedic Surgery; ADMIT Emergency Medicine
PROC: 0QBH0ZZ Excision of Left Tibia, Open Approach (ICD-10-PCS; 2016-11-12)
PROC: 0QBK0ZZ Excision of Left Fibula, Open Approach (ICD-10-PCS; principal; 2016-11-12 12:15)
DX: A41.9 Sepsis, unspecified organism (principal); N17.9 Acute kidney failure, unspecified; D64.9 Anemia, unspecified; E11.65 Type 2 diabetes mellitus with hyperglycemia; I10 Essential (primary) hypertension; I25.10 Atherosclerotic heart disease of native coronary artery without angina pectoris; E03.9 Hypothyroidism, unspecified; I73.9 Peripheral vascular disease, unspecified; Z86.73 Personal history of transient ischemic attack (TIA), and cerebral infarction without residual deficits; Z87.891 Personal history of nicotine dependence; Z89.512 Acquired absence of left leg below knee; B96.1 Klebsiella pneumoniae [K. pneumoniae] as the cause of diseases classified elsewhere; B18.2 Chronic viral hepatitis C

== ENCOUNTER → 2016-11-29 12:36 | Emergency (ER) | payer OTHER ==
[2016-11-03 13:47] VITALS: BMI 25.8
[~2016-11-29 12:36] MED LIST changes: +LEVAQUIN750 MG PO
== END | disposition home or self-care (01) ==
LOC: D.ER 12:36
DX: S09.90XA Unspecified injury of head, initial encounter (principal); W19.XXXA Unspecified fall, initial encounter; Y93.89 Activity, other specified; Y92.89 Other specified places as the place of occurrence of the external cause; E11.9 Type 2 diabetes mellitus without complications; B19.20 Unspecified viral hepatitis C without hepatic coma

== ENCOUNTER 2017-09-26 06:53 | Day surgery (SDC) | payer OTHER ==
[~2017-09-26] VITALS: Ht 170.2 cm; Wt 75.0 kg
--- NOTE | ~2017-09-26 | OP ---
PATIENT NAME: KAYLIE LONG MEDICAL RECORD: [id number] :44 LOCATION:D.[facility] ADMISSION DATE: SURGEON: KAI FRANCO MD DATE OF OPERATION: 09/26/2017 PREOPERATIVE DIAGNOSES: 1. Failure to thrive. 2. Chronic kidney disease. 3. Lack of peripheral IV access. 4. Hypertension. 5. Hepatitis C. 6. Tuberculosis. 7. Diabetes mellitus. POSTOPERATIVE: 1. Failure to thrive. 2. Chronic kidney disease. 3. Lack of peripheral IV access. 4. Hypertension. 5. Hepatitis C. 6. Tuberculosis. 7. Diabetes mellitus. PROCEDURES: 1. Insertion of left infraclavicular PowerPort under fluoroscopic guidance. 2. Immediate surgeon interpretation of fluoroscopic images. SURGEON: Kai Franco MD BIOMEDICAL EQUIPMENT TECHNICIAN: None. BLOOD LOSS: Minimal. ANESTHESIA: General. COMPLICATIONS: None. The risks, possible complications and alternatives to the procedure were explained to the patient. He elects to proceed. I specifically discussed with him the risk of bleeding requiring an emergency reoperation, infection, the fact that the port could flip, it could clot off and could become nonfunctional. No radiologist was present for this procedure. Static fluoroscopic images were obtained and are kept in the PACS system. The surgeon interpretation of the radiographic images is dictated within the body of this operative note. OPERATIVE COURSE: The patient was conveyed to the operating room electively on 09/26/2017. General anesthesia was induced by the anesthesia staff. The left chest and left neck were sterilely prepped and draped. Under ultrasonographic guidance, I percutaneously accessed the left internal jugular vein. A guidewire advanced easily. This was visualized under fluoroscopy. A skin incision was accomplished around the wire. A transverse incision was accomplished inferior to the left clavicle. I dissected down to the level of the pectoralis fascia. A subcutaneous pocket was created in a caudad direction. I then removed some of the subcutaneous adipose tissue from between the port pocket and the skin. This OPERATIVE REPORT [id number] KAYLIE LONG is to allow for easier access of the port. I then tunneled the port catheter from the chest incision to the neck incision. Over the guidewire, I advanced a dilator sheath. The dilator and wire were removed. I tried to advance the catheter and unfortunately, the sheath was at such an acute angle, that I was unable to advance the catheter down through the sheath. This approach was abandoned. Under ultrasonographic guidance, I percutaneously accessed the internal jugular vein utilizing a more lateral approach. A guidewire passed easily. A small skin angel was accomplished. I then retunneled the catheter from the chest incision to this new neck incision. Over the guidewire, I placed a dilator sheath. The dilator and wire were removed. Through the sheath, I advanced the PowerPort catheter. The peel-away sheath was then removed. I then withdrew the PowerPort catheter under fluoroscopic guidance, so that the tip was at the cavoatrial junction. I then divided the PowerPort catheter at the chest incision. It was attached to the PowerPort. The locking device was firmly engaged. The PowerPort was placed in subcutaneous pocket and through 3-point fixation utilizing 3-0 Prolenes, I sutured the PowerPort to the underlying pectoralis fascia to prevent it from flipping. I irrigated with normal saline. I then flushed the PowerPort. It flushed easily with heparinized saline and I then withdrew dark, nonpulsatile blood as well. The neck incisions were closed with interrupted intracuticular 3-0 Vicryls. The chest incision was closed with multiple interrupted 3-0 Vicryls for the deep dermis as well as a running intracuticular 3-0 Vicryl for the skin. Benzoin and Steri-Strips were applied. The patient was then extubated and conveyed to the post-anesthesia care unit where he was in stable condition. TRANSINT:[id number] Voice Confirmation ID: [id number] DOCUMENT ID: [id number] KAI FRANCO MD at 1024 CC: [id number] DICTATION DATE: 09/26/17 1104 SMOKING TOBACCO PACKER HAND: 09/26/17 1215 [facility] 09/26/17 [place] [address]
[2017-09-26 07:45] LABS: BASOPHILS 0.3 % (0-2); EOSINOPHILS 4.1 % (0-7); HEMATOCRIT 29.6 % (42.0-54.0); HEMOGLOBIN 9.8 g/dL (13.5-17.5); IMMATURE GRANULOCYTES 0.2 % (0-5); LYMPHOCYTES 14.5 % (15-50); MCH 25.6 pg (26.0-34.0); MCHC 33.1 g/dL (31.0-37.0); MCV 77.3 fL (80.0-100.0); MEAN PLATELET VOLUME 9.4 fL (7.4-10.4); MONOCYTES 9.5 % (2-11); NEUTROPHILS 71.4 % (40-80); RBC 3.83 10x6/uL (4.20-6.10); RDW 15.7 % (11.5-14.5); WBC 15.7 10x3/uL (4.8-10.8)
[2017-09-26 07:54] LABS: PLATELET COUNT 343 10x3/uL (130-400)
[2017-09-26 08:07] VITALS: Ht 170.2 cm; Wt 75.0 kg
[2017-09-26 08:11] LABS: ANION GAP 14.6 mmol/L (8-16); CALCIUM 8.9 mg/dL (8.5-10.1); CARBON DIOXIDE 20.3 mmol/L (21.0-32.0); CREATININE - SERUM 2.5 mg/dL (0.6-1.3); POTASSIUM - SERUM 4.9 mmol/L (3.5-5.1)
[2017-09-26 08:45] LABS: APTT 28.7 SECONDS (22.8-39.4); INR 1.14 (0.85-1.17); PROTIME 13.9 SECONDS (11.6-15.0)
== END 2017-09-26 13:15 | disposition home or self-care (01) ==
LOC: D.OPS 06:53
PROVIDERS: Anesthesiology
DX: R62.7 Adult failure to thrive (principal); E11.22 Type 2 diabetes mellitus with diabetic chronic kidney disease; I12.9 Hypertensive chronic kidney disease with stage 1 through stage 4 chronic kidney disease, or unspecified chronic kidney disease; N18.9 Chronic kidney disease, unspecified; B19.20 Unspecified viral hepatitis C without hepatic coma; Z86.11 Personal history of tuberculosis; Z01.812 Encounter for preprocedural laboratory examination

== ENCOUNTER 2017-10-26 13:49 | Inpatient (IN) | payer MEDICAID ==
[2017-10-26] VITALS (12 sets, daily range): BP systolic 132–166; BP diastolic 48–80; BMI 29.0
[~2017-10-26] VITALS: Ht 170.2 cm; Wt 84.3 kg
--- NOTE | ~2017-10-26 | EC ---
PATIENT:KAYLIE LONG DATE OF SERVICE: 10/26/17 SEX: M MEDICAL RECORD: [id number] DATE OF : 44 LOCATION:D.[facility] AGE OF PATIENT: 77 ADMISSION DATE: 10/26/17 REFERRING PHYSICIAN: INTERPRETING PHYSICIAN: ISAIAH MCKEON MD ECHOCARDIOGRAM REPORT ECHO CHARGES 4 ECHO COMPLETE Date: 10/27/17 CLINICAL DIAGNOSIS: CHF/VALVULAR DISEASE ECHOCARDIOGRAPHIC MEASUREMENTS (adult normal given) AC root (d.<3.7cm) 3.6 cm LV Septum d (<1.2 cm> 1.7 cm Valve Excursion 0.8 cm LV Septum (systole) 1.8 cm Left Atria (s.<4.0cm> 3.9 cm LVPW d(<1.2cm) 1.6 cm RV (d.<2.3cm) 3.4 cm LVPW (sytole) 2.0 cm LV diastole(<5.6CM) 4.4 cm MV E-F(>70mm/sec) cm LV systole 3.1 cm LVOT Diameter 1.7 cm MV exc.(>10mm) 1.8 cm Est.ejection fraction (50-75%) % DOPPLER: LVIT cm/sec A 89.0 cm/sec E 129 cm/sec LA cm/sec RVSP 53 mmHg LVOT 166 cm/sec AOP1/2T m/s Asc. Ao 285 cm/sec RVOT 103 cm/sec RA cm/sec PA 129 cm/sec AV Gradient Peak 32.58mmHg AV Mean 17.52mmHg AV Area 1.2 cm MV Gradient Peak 12.05mmHg MV Mean 3.45 mmHg MV Area cm COMMENTS: Element Setter: 2 CALISTA ZAMBRANO Chicken Raiser: 3 Dr. Jena TAPE# PACS Pericardial Effusion N DATE OF SERVICE: Adequate 2D echo, color-flow and spectral Doppler, and M-Mode. LVH is present. LV internal dimensions are normal. Wall motion is normal. EF is greater than or equal to 55%. Aortic valve is calcified with mild restriction of leaflet motion, peak gradient of 32 mmHg, putting this in the [id number]-jn-zunmyajg range. Left atrium is normal at 3.9 cm. Mitral valve shows no prolapse. Mild plus MR. Right-sided chamber is normal. Mild TR. TRANSINT:[id number] Voice Confirmation ID: [id number] DOCUMENT ID: [id number] ECHOCARDIOGRAM REPORT [id number] KAYLIE LONG,ISAIAH Holcomb MD at 0843 CC: [id number] DICTATION DATE: 10/27/171625 DANCING TEACHER: 10/27/17 1807 DIS IN 10/30/17 [id number] [place] [id number]
[2017-10-26] MEDS ORDERED: FUROSEMIDE10 MG/M1 IV (13:57)
[2017-10-26] MEDS ORDERED: ALBUTEROL1.25 MG/3 INH (13:57)
[2017-10-26] MEDS ORDERED: HUMULIN N100 U/ML (13:58)
[2017-10-26] MEDS ORDERED: GENTAMICIN PRE100 MG IV (13:58)
[2017-10-26] MEDS ORDERED: FOLIC ACID1 MG PO (13:58)
[2017-10-26] MEDS ORDERED: ZINC OXIDE 20 %30 GM TOPICAL (13:59)
[2017-10-26] MEDS ORDERED: FERROUS SULFAT325 MG PO (13:59)
[2017-10-26] MEDS ORDERED: NYSTATIN OINTME15 GM TOPICAL (13:59)
[2017-10-26] MEDS ORDERED: ASPIRIN81 MG PO (14:00)
[2017-10-26] MEDS ORDERED: PLAVIX75 MG PO (14:00)
[2017-10-26] MEDS ORDERED: ENSURE (14:00)
[2017-10-26] MEDS ORDERED: ZOLOFT50 MG PO (14:01)
[2017-10-26] MEDS ORDERED: ULTRAM50 MG PO (14:01)
[2017-10-26] MEDS ORDERED: XIFAXAN550 MG PO (14:02)
[2017-10-26 14:46] LABS: BASOPHILS 0.3 % (0-2); EOSINOPHILS 6.7 % (0-7); IMMATURE GRANULOCYTES 0.3 % (0-5); LYMPHOCYTES 14.9 % (15-50); MCH 26.7 pg (26.0-34.0); MCHC 32.1 g/dL (31.0-37.0); MCV 83.2 fL (80.0-100.0); MEAN PLATELET VOLUME 9.3 fL (7.4-10.4); MONOCYTES 8.6 % (2-11); NEUTROPHILS 69.2 % (40-80); PLATELET COUNT 312 10x3/uL (130-400); RBC 2.02 10x6/uL (4.20-6.10); RDW 18.5 % (11.5-14.5); WBC 14.4 10x3/uL (4.8-10.8)
[2017-10-26 14:55] LABS: HEMATOCRIT 16.8 % (42.0-54.0); HEMOGLOBIN 5.4 g/dL (13.5-17.5)
[2017-10-26 15:05] LABS: INR 1.23 (0.85-1.17); PROTIME 15.1 SECONDS (11.6-15.0)
[2017-10-26 15:18] LABS: ALBUMIN 2.1 g/dL (3.4-5.0); ANION GAP 14.1 mmol/L (8-16); BILIRUBIN - TOTAL 0.23 mg/dL (0.2-1.3); CALCIUM 8.3 mg/dL (8.5-10.1); CREATININE - SERUM 2.6 mg/dL (0.6-1.3); POTASSIUM - SERUM 4.1 mmol/L (3.5-5.1); PROTEIN - SERUM 7.2 g/dL (6.4-8.2)
[2017-10-26 15:33] LABS: MAGNESIUM - SERUM 1.9 mg/dL (1.8-2.4)
[2017-10-26 15:50] LABS: TROPONIN-I 0.082 ng/mL (0.000-0.060)
[2017-10-26 16:27] LABS: % SATURATION 31 % (15-55); IRON 64 ug/dl (35-150); TOTAL IRON BIND CAPACITY 206 ug/dl (260-445); UNSAT IRON BIND CAPACITY 142 ug/dl (150-375)
[2017-10-26 20:44] LABS: HEMATOCRIT 27.7 % (42.0-54.0); HEMOGLOBIN 9.1 g/dL (13.5-17.5)
[2017-10-26 23:52] LABS: APPEARANCE HAZY (CLEAR); BILIRUBIN NEGATIVE (NEGATIVE); COLOR YELLOW (YELLOW); GLUCOSE 50 mg/dL (NEGATIVE); KETONE NEGATIVE (NEGATIVE); NITRITE NEGATIVE (NEGATIVE); PROTEIN 2+ mg/dL (NEGATIVE); UROBILINOGEN NORMAL (NORMAL)
[2017-10-26 23:54] LABS: BACTERIA MODERATE /hpf (NONE SEEN); EPITHELIAL CELLS 0-5 /hpf (0-5); RED CELLS - URINE 0-5 /hpf (0-5)
[2017-10-27] VITALS (24 sets, daily range): BP systolic 130–184; BP diastolic 56–86; Ht 170.2 cm; Wt 84.3 kg
[2017-10-27 00:47] LABS: HEMATOCRIT 26.3 % (42.0-54.0); HEMOGLOBIN 8.9 g/dL (13.5-17.5)
[2017-10-27 05:44] LABS: BASOPHILS 0.3 % (0-2); HEMATOCRIT 30.6 % (42.0-54.0); HEMOGLOBIN 10.5 g/dL (13.5-17.5); IMMATURE GRANULOCYTES 0.3 % (0-5); LYMPHOCYTES 14.3 % (15-50); MCH 28.6 pg (26.0-34.0); MCHC 34.3 g/dL (31.0-37.0); MCV 83.4 fL (80.0-100.0); MEAN PLATELET VOLUME 9.5 fL (7.4-10.4); MONOCYTES 9.1 % (2-11); PLATELET COUNT 285 10x3/uL (130-400); RDW 16.6 % (11.5-14.5); WBC 13.3 10x3/uL (4.8-10.8)
[2017-10-27 05:49] LABS: RBC 3.67 10x6/uL (4.20-6.10)
[2017-10-27 05:58] LABS: ALBUMIN 2.2 g/dL (3.4-5.0); ANION GAP 13.3 mmol/L (8-16); BILIRUBIN - DIRECT 0.13 mg/dL (0.00-0.30); BILIRUBIN - INDIRECT 0.23 mg/dL (0.00-1.00); BILIRUBIN - TOTAL 0.36 mg/dL (0.2-1.3); CALCIUM 8.5 mg/dL (8.5-10.1); CREATININE - SERUM 2.5 mg/dL (0.6-1.3); POTASSIUM - SERUM 4.3 mmol/L (3.5-5.1); PROTEIN - SERUM 7.6 g/dL (6.4-8.2)
[2017-10-27 17:02] LABS: HEMATOCRIT 32.2 % (42.0-54.0); HEMOGLOBIN 10.9 g/dL (13.5-17.5)
[2017-10-28] VITALS (17 sets, daily range): BP systolic 124–175; BP diastolic 55–81
[2017-10-28 00:50] LABS: HEMATOCRIT 33.2 % (42.0-54.0)
[2017-10-28 03:49] LABS: BASOPHILS 0.2 % (0-2); EOSINOPHILS 3.9 % (0-7); HEMATOCRIT 31.6 % (42.0-54.0); HEMOGLOBIN 10.5 g/dL (13.5-17.5); IMMATURE GRANULOCYTES 0.1 % (0-5); LYMPHOCYTES 11.8 % (15-50); MCH 28.1 pg (26.0-34.0); MCHC 33.2 g/dL (31.0-37.0); MCV 84.5 fL (80.0-100.0); MEAN PLATELET VOLUME 9.1 fL (7.4-10.4); MONOCYTES 8.4 % (2-11); NEUTROPHILS 75.6 % (40-80); PLATELET COUNT 296 10x3/uL (130-400); RBC 3.74 10x6/uL (4.20-6.10); RDW 16.5 % (11.5-14.5); WBC 13.5 10x3/uL (4.8-10.8)
[2017-10-28 03:57] LABS: INR 1.16 (0.85-1.17); PROTIME 14.4 SECONDS (11.6-15.0)
[2017-10-28 04:09] LABS: ALBUMIN 2.2 g/dL (3.4-5.0); ANION GAP 11.8 mmol/L (8-16); BILIRUBIN - DIRECT 0.15 mg/dL (0.00-0.30); BILIRUBIN - INDIRECT 0.17 mg/dL (0.00-1.00); BILIRUBIN - TOTAL 0.32 mg/dL (0.2-1.3); CALCIUM 8.1 mg/dL (8.5-10.1); CARBON DIOXIDE 20.6 mmol/L (21.0-32.0); CREATININE - SERUM 2.7 mg/dL (0.6-1.3); POTASSIUM - SERUM 4.4 mmol/L (3.5-5.1); PROTEIN - SERUM 7.6 g/dL (6.4-8.2)
[2017-10-28 09:18] LABS: FOLATE (FOLIC ACID) - SERUM >20.0 ng/mL (>3.0)
[2017-10-29] VITALS (8 sets, daily range): BP systolic 131–162; BP diastolic 45–68
[2017-10-29 05:45] LABS: BASOPHILS 0.1 % (0-2); EOSINOPHILS 5.4 % (0-7); HEMATOCRIT 30.8 % (42.0-54.0); HEMOGLOBIN 10.2 g/dL (13.5-17.5); IMMATURE GRANULOCYTES 0.1 % (0-5); LYMPHOCYTES 15.8 % (15-50); MCH 27.9 pg (26.0-34.0); MCHC 33.1 g/dL (31.0-37.0); MCV 84.4 fL (80.0-100.0); MEAN PLATELET VOLUME 9.6 fL (7.4-10.4); MONOCYTES 9.7 % (2-11); NEUTROPHILS 68.9 % (40-80); PLATELET COUNT 317 10x3/uL (130-400); RBC 3.65 10x6/uL (4.20-6.10); RDW 16.2 % (11.5-14.5); WBC 13.5 10x3/uL (4.8-10.8)
[2017-10-29 06:07] LABS: ANION GAP 12.8 mmol/L (8-16); CARBON DIOXIDE 19.2 mmol/L (21.0-32.0); CREATININE - SERUM 2.8 mg/dL (0.6-1.3)
[2017-10-30 06:34] LABS: BASOPHILS 0.3 % (0-2); HEMATOCRIT 30.6 % (42.0-54.0); IMMATURE GRANULOCYTES 0.2 % (0-5); LYMPHOCYTES 11.3 % (15-50); MCH 27.5 pg (26.0-34.0); MCHC 32.7 g/dL (31.0-37.0); MCV 84.3 fL (80.0-100.0); MEAN PLATELET VOLUME 9.6 fL (7.4-10.4); MONOCYTES 8.9 % (2-11); NEUTROPHILS 73.3 % (40-80); PLATELET COUNT 313 10x3/uL (130-400); RBC 3.63 10x6/uL (4.20-6.10); RDW 15.8 % (11.5-14.5); WBC 11.3 10x3/uL (4.8-10.8)
[2017-10-30 06:58] LABS: ANION GAP 13.4 mmol/L (8-16); CALCIUM 8.3 mg/dL (8.5-10.1); CARBON DIOXIDE 20.9 mmol/L (21.0-32.0); CREATININE - SERUM 2.8 mg/dL (0.6-1.3); POTASSIUM - SERUM 4.3 mmol/L (3.5-5.1)
[2017-10-30] MEDS ORDERED: LEVAQUIN250 MG PO (11:03)
[2017-10-30] MEDS ORDERED: NICODERM C1 PATCH .3 TRANSDERM (11:03)
[2017-10-30] MEDS ORDERED: PROTONIX40 MG PO (11:03)
== END 2017-10-30 16:18 | DRG 377 ==
LOC: D.ER 13:49 → D.EDHOLD 14:44 → D.ICU 14:44 → D.MS 14:44 → D.ICU 17:47 → D.MS 10-28 15:36
PROVIDERS: Family Medicine; Internal Medicine Gastroenterology; Internal Medicine Nephrology
PROC: 0DB98ZX Excision of Duodenum, Via Natural or Artificial Opening Endoscopic, Diagnostic (ICD-10-PCS; 2017-10-27)
PROC: 0DB78ZX Excision of Stomach, Pylorus, Via Natural or Artificial Opening Endoscopic, Diagnostic (ICD-10-PCS; 2017-10-27)
PROC: 0DBL8ZZ Excision of Transverse Colon, Via Natural or Artificial Opening Endoscopic (ICD-10-PCS; 2017-10-28)
PROC: 0DBM8ZZ Excision of Descending Colon, Via Natural or Artificial Opening Endoscopic (ICD-10-PCS; principal; 2017-10-28 07:00)
DX: K55.21 Angiodysplasia of colon with hemorrhage (principal); R53.2 Functional quadriplegia; D62 Acute posthemorrhagic anemia; N17.9 Acute kidney failure, unspecified; F17.203 Nicotine dependence unspecified, with withdrawal; N39.0 Urinary tract infection, site not specified; Z89.612 Acquired absence of left leg above knee; Z89.611 Acquired absence of right leg above knee; K21.9 Gastro-esophageal reflux disease without esophagitis; E11.9 Type 2 diabetes mellitus without complications; I73.9 Peripheral vascular disease, unspecified; K29.01 Acute gastritis with bleeding; I11.9 Hypertensive heart disease without heart failure; B19.20 Unspecified viral hepatitis C without hepatic coma; I10 Essential (primary) hypertension; K64.8 Other hemorrhoids

== ENCOUNTER 2017-12-18 19:34 | Inpatient (IN) | payer MEDICAID ==
[~2017-12-18] VITALS: Ht 170.2 cm; Wt 77.6 kg
--- NOTE | ~2017-12-18 | MORECARE ---
CASE MANAGEMENT DISCHARGE SUMMARY PATIENT: KAYLIE LONG UNIT: [id number] ADM DATE: 12/18/17 AGE: 77 : 42 SEX: M ROOM/BED: D.2311 AUTHOR: LUZ MARIA WALLS PHYSICIAN: REFERRING PHYSICIAN: LOKI KEYS MD DATE OF SERVICE: 12/19/17 Discharge Plan Patient Name: KAYLIE LONG Facility: [facility]:[place] : 1940 Planned Disposition: Anticipated Discharge Date: Discharge Date: Expected LOS: Initial Reviewer: [email or web address] Initial Review Date: 12/18/2017 Generated: 12/19/17 12:32 pm Patient Name: KAYLIE LONG Page [id number] at 1132 All edits/amendments must be made on the electronic document DICTATION DATE: 12/19/17 113 GLOBAL PROJECT MANAGER: ABIOLA 12/19/17 1132 RPT#: [id number] ND DATE: STATUS: ADM IN [facility] [address] [place] [address] END OF REPORT
--- NOTE | ~2017-12-18 | MORECARE ---
CASE MANAGEMENT DISCHARGE SUMMARY PATIENT: KAYLIE LONG UNIT: [id number] ADM DATE: 12/18/17 AGE: 77 : 42 SEX: M ROOM/BED: D.2209 AUTHOR: LUZ MARIA WALLS PHYSICIAN: REFERRING PHYSICIAN: LOKI KEYS MD DATE OF SERVICE: 12/24/17 Discharge Plan Patient Name: KAYLIE LONG Facility: [facility] : 1940 Planned Disposition: [place] Anticipated Discharge Date: 12/24/17 Discharge Date: Expected LOS: 6 Initial Reviewer: [email or web address] Initial Review Date: 12/18/2017 Generated: 12/24/17 5:32 pm Comments DCP- Discharge Planning Updated by [email or web address]: Alexandra Melendez on 12/24/17 3:[address] Patient Name: KAYLIE LONG Encounter No: [id number] : 1940 Primary Insurance: MEDICAID [employer] PENDING Anticipated DC Date: 12-24-2017 Planned Disposition: [place] External Planned Provider: : [facility] DCP follow-up note: Patient to be dc'd back to [facility] with guard. Nurse to call report to [facility]. Case management will follow and assist as needed. Alexandra Melendez DCP- Discharge Planning Updated by [email or web address]: Kaylie Islas on 12/19/17 4:[address] Patient Name: KAYLIE LONG Admission Status: ER Accout number: [id number] Admission Date: 12-18-2017 : 1940 Admission Diagnosis: Attending: LUDMILA, Current LOS: 1 Anticipated DC Date: Planned Disposition: [place] Primary Insurance: MEDICAID FCI PENDING Discharge Planning Comments: [facility]. CM will continue to follow and assist as needed with discharge planning /needs. Towel Cabinet Repairer: Kaylie Islas Last DP export: 12/24/17 3:25 Patient Name: KAYLIE LONG Page 18306 at 1632 All edits/amendments must be made on the electronic document DICTATION DATE: 12/24/17 1631 ASSISTANT PROPERTY MANAGER: DM 12/24/17 1631 RPT#: [id number] DC DATE: STATUS: ADM IN [facility] [address] [place] [address] END OF REPORT
--- NOTE | ~2017-12-18 | MORECARE ---
CASE MANAGEMENT DISCHARGE SUMMARY PATIENT: KAYLIE LONG UNIT: [id number] ADM DATE: 12/18/17 AGE: 77 : 42 SEX: M ROOM/BED: D.2209 AUTHOR: LUZ MARIA WALLS PHYSICIAN: REFERRING PHYSICIAN: LOKI KEYS MD DATE OF SERVICE: 12/26/17 Discharge Plan Patient Name: KAYLIE LONG Facility: [facility] : 1940 Planned Disposition: [facility] Anticipated Discharge Date: 12/24/17 Discharge Date: 12/24/2017 Expected LOS: 6 Initial Reviewer: [email or web address] Initial Review Date: 12/18/2017 Generated: 12/26/17 11:11 am Comments DCP- Discharge Planning Updated by [email or web address]: Alexandra Melendez on 12/24/17 3:[address] Patient Name: KAYLIE LONG Encounter No: [id number] : 1940 Primary Insurance: MEDICAID MCFP PENDING Anticipated DC Date: 12-24-2017 Planned Disposition: [facility] External Planned Provider: : [facility] DCP follow-up note: Patient to be dc'd back to [facility] with guard. Nurse to call report to [facility]. Case management will follow and assist as needed. Alexandra Melendez DCP- Discharge Planning Updated by [email or web address]: Kaylie Islas on 12/19/17 4:[address] Patient Name: KAYLIE LONG Admission Status: ER Accout number: [id number] Admission Date: 12-18-2017 : 1940 Admission Diagnosis: Attending: LUDMILA, Current LOS: 1 Anticipated DC Date: Planned Disposition: [facility] Primary Insurance: MEDICAID MCFP PENDING Discharge Planning Comments: [facility]. CM will continue to follow and assist as needed with discharge planning /needs. Yarn Polishing Machine Operator: Kaylie Esposito DP export: 12/24/17 3:32 Patient Name: KAYLIE LONG Page 19931 at 1012 All edits/amendments must be made on the electronic document DICTATION DATE: 12/26/17 1011 PAYROLL AND BENEFITS ANALYST: ABIOLA 12/26/17 1011 RPT#: [id number] DC DATE:12/24/17 STATUS: DIS IN [facility] [address] [place] [address] END OF REPORT
--- NOTE | ~2017-12-18 | MORECARE ---
CASE MANAGEMENT DISCHARGE SUMMARY PATIENT: KAYLIE LONG UNIT: [id number] ADM DATE: 12/18/17 AGE: 77 : 42 SEX: M ROOM/BED: D.2311 AUTHOR: LUZ MARIA WALLS PHYSICIAN: REFERRING PHYSICIAN: LOKI KEYS MD DATE OF SERVICE: 12/19/17 Discharge Plan Patient Name: KAYLIE LONG Facility: [facility]:[place] : 1940 Planned Disposition: [facility] Anticipated Discharge Date: Discharge Date: Expected LOS: Initial Reviewer: [email or web address] Initial Review Date: 12/18/2017 Generated: 12/19/17 6:43 pm Comments DCP- Discharge Planning Updated by [email or web address]: Kaylie Islas on 12/19/17 4:[address] Patient Name: KAYLIE LONG Admission Status: ER Accout number: [id number] Admission Date: 12-18-2017 : 1940 Admission Diagnosis: Attending: LUDMILA, Current LOS: 1 Anticipated DC Date: Planned Disposition: [facility] Primary Insurance: MEDICAID RESIDENTIAL PENDING Discharge Planning Comments: [facility] upon discharge. CM will continue to follow and assist as needed with discharge planning /needs. Gate Manager: Kaylie Esposito DP export: 12/19/17 10:32 Patient Name: KAYLIE LONG Page 35377 at 1743 All edits/amendments must be made on the electronic document DICTATION DATE: 12/19/171742 CLIENT EXPERIENCE ADMINISTRATOR: ABIOLA 12/19/171742 RPT#: [id number] DC DATE: STATUS: ADM IN [facility] [address] [place] [address] END OF REPORT
--- NOTE | ~2017-12-18 | MORECARE ---
CASE MANAGEMENT DISCHARGE SUMMARY PATIENT: KAYLIE LONG UNIT: [id number] ADM DATE: 12/18/17 AGE: 77 : 42 SEX: M ROOM/BED: D.2209 AUTHOR: LUZ MARIA WALLS PHYSICIAN: REFERRING PHYSICIAN: LOKI KEYS MD DATE OF SERVICE: 12/24/17 Discharge Plan Patient Name: KAYLIE LONG Facility: [facility]:[place] : 1940 Planned Disposition: [facility] Anticipated Discharge Date: 12/24/17 Discharge Date: Expected LOS: 6 Initial Reviewer: [email or web address] Initial Review Date: 12/18/2017 Generated: 12/24/17 5:25 pm Comments DCP- Discharge Planning Updated by [email or web address]: Kaylie Islas on 12/19/17 4:[address] Patient Name: KAYLIE LONG Admission Status: ER Accout number: [id number] Admission Date: 12-18-2017 : 1940 Admission Diagnosis: Attending: LUDMILA, Current LOS: 1 Anticipated DC Date: Planned Disposition: [facility] Primary Insurance: MEDICAID CARE HOME PENDING Discharge Planning Comments: [facility]. CM will continue to follow and assist as needed with discharge planning /needs. Tooth Cutter Pinion: Kaylie Esposito DP export: 12/19/17 4:43 Patient Name: KAYLIE LONG Page 32795 at 1625 All edits/amendments must be made on the electronic document DICTATION DATE: 12/24/171624 MANAGING MANAGER: ABIOLA 12/24/17 162 RPT#: [id number] DC DATE: STATUS: ADM IN [facility] [address] [place] [address] END OF REPORT
[~2017-12-18 19:34] MED LIST changes: +ALBUTEROL1.25 MG/3 INH; +ASPIRIN81 MG PO; +ENSURE; +FERROUS SULFAT325 MG PO; +FOLIC ACID1 MG PO; +FUROSEMIDE10 MG/M1 IV; +GENTAMICIN PRE100 MG IV; +HUMULIN N100 U/ML; +LEVAQUIN250 MG PO; +NICODERM C1 PATCH .3 TRANSDERM; +NYSTATIN OINTME15 GM TOPICAL; +PROTONIX40 MG PO; +ULTRAM50 MG PO; +XIFAXAN550 MG PO; +ZINC OXIDE 20 %30 GM TOPICAL; +ZOLOFT50 MG PO
[2017-12-18 20:01] LABS: BASOPHILS 0.1 % (0-2); EOSINOPHILS 0.6 % (0-7); HEMATOCRIT 24.3 % (42.0-54.0); HEMOGLOBIN 7.8 g/dL (13.5-17.5); IMMATURE GRANULOCYTES 0.4 % (0-5); LYMPHOCYTES 8.8 % (15-50); MCH 26.4 pg (26.0-34.0); MCHC 32.1 g/dL (31.0-37.0); MCV 82.4 fL (80.0-100.0); MEAN PLATELET VOLUME 10.4 fL (7.4-10.4); NEUTROPHILS 80.1 % (40-80); RBC 2.95 10x6/uL (4.20-6.10); RDW 16.2 % (11.5-14.5); WBC 19.5 10x3/uL (4.8-10.8)
[2017-12-18 20:02] LABS: PLATELET COUNT 241 10x3/uL (130-400)
[2017-12-18 20:10] LABS: APTT 22.1 SECONDS (22.8-39.4); INR 1.33 (0.85-1.17)
[2017-12-18 20:23] LABS: ALBUMIN 2.3 g/dL (3.4-5.0); ALKALINE PHOSPHATASE 204 U/L (46-116); ALT (SGPT) 86 U/L (10-68); BILIRUBIN - TOTAL 0.24 mg/dL (0.2-1.3); CALC OSMOLALITY 322 mosm/kg (275-300); CALCIUM 8.4 mg/dL (8.5-10.1); CARBON DIOXIDE 14.5 mmol/L (21.0-32.0); CHLORIDE - SERUM 107 mmol/L (98-107); CREATININE - SERUM 5.5 mg/dL (0.6-1.3); POTASSIUM - SERUM 4.2 mmol/L (3.5-5.1); PROTEIN - SERUM 7.5 g/dL (6.4-8.2); SODIUM 138 mmol/L (136-145); UREA NITROGEN 128 mg/dL (7-18); eGFR NON AFRICAN AMERICAN 11 mL/min (90-120)
[2017-12-18 20:24] LABS: GLUCOSE 213 mg/dL (74-106)
[2017-12-18 20:42] LABS: CKMB 5.5 U/L (0.0-3.6); CREATINE KINASE 238 UL (21-232); LIPASE 270 U/L (73-393); MAGNESIUM - SERUM 1.8 mg/dL (1.8-2.4)
[2017-12-18 22:00] VITALS: BP 147/59
[2017-12-18 22:40] VITALS: BP 133/58
[2017-12-18 22:47] LABS: APPEARANCE CLEAR (CLEAR); COLOR YELLOW (YELLOW); SPECIFIC GRAVITY 1.005 (1.005-1.020)
[2017-12-18 22:48] LABS: BACTERIA NONE SEEN /hpf (NONE SEEN); BILIRUBIN NEGATIVE (NEGATIVE); EPITHELIAL CELLS NSEEN /hpf (0-5); GLUCOSE 50 mg/dL (NEGATIVE); KETONE NEGATIVE (NEGATIVE); NITRITE NEGATIVE (NEGATIVE); PROTEIN TRACE mg/dL (NEGATIVE); UROBILINOGEN NORMAL (NORMAL); WHITE CELLS - URINE NSEEN /hpf (0-5)
[2017-12-18 23:39] VITALS: BP 131/72
[2017-12-19] VITALS (16 sets, daily range): BP systolic 112–161; BP diastolic 54–82; Ht 170.2 cm; Wt 77.6 kg
[2017-12-19 05:02] LABS: BASOPHILS 0.1 % (0-2); EOSINOPHILS 1.7 % (0-7); HEMATOCRIT 27.1 % (42.0-54.0); HEMOGLOBIN 9.1 g/dL (13.5-17.5); IMMATURE GRANULOCYTES 0.4 % (0-5); LYMPHOCYTES 11.1 % (15-50); MCH 27.1 pg (26.0-34.0); MCHC 33.6 g/dL (31.0-37.0); MCV 80.7 fL (80.0-100.0); MEAN PLATELET VOLUME 10.5 fL (7.4-10.4); MONOCYTES 9.3 % (2-11); NEUTROPHILS 77.4 % (40-80); PLATELET COUNT 193 10x3/uL (130-400); RBC 3.36 10x6/uL (4.20-6.10); RDW 15.5 % (11.5-14.5); WBC 16.3 10x3/uL (4.8-10.8)
[2017-12-19 05:37] LABS: ALBUMIN 2.1 g/dL (3.4-5.0); ANION GAP 21.4 mmol/L (8-16); BILIRUBIN - TOTAL 0.28 mg/dL (0.2-1.3); C-REACTIVE PROTEIN 23.8 mg/dL (0.0-0.9); CALCIUM 7.9 mg/dL (8.5-10.1); CARBON DIOXIDE 14.6 mmol/L (21.0-32.0); CREATININE - SERUM 5.4 mg/dL (0.6-1.3); PROTEIN - SERUM 6.4 g/dL (6.4-8.2)
[2017-12-19 05:38] LABS: INR 1.45 (0.85-1.17); PROTIME 17.2 SECONDS (11.6-15.0); TROPONIN-I 0.263 ng/mL (0.000-0.060)
[2017-12-20] VITALS (24 sets, daily range): BP systolic 107–175; BP diastolic 52–74
[2017-12-20 04:27] LABS: BASOPHILS 0.1 % (0-2); EOSINOPHILS 3.2 % (0-7); HEMATOCRIT 22.7 % (42.0-54.0); HEMOGLOBIN 7.8 g/dL (13.5-17.5); IMMATURE GRANULOCYTES 0.2 % (0-5); LYMPHOCYTES 11.6 % (15-50); MCH 27.2 pg (26.0-34.0); MCHC 34.4 g/dL (31.0-37.0); MCV 79.1 fL (80.0-100.0); MEAN PLATELET VOLUME 10.4 fL (7.4-10.4); MONOCYTES 8.5 % (2-11); NEUTROPHILS 76.4 % (40-80); PLATELET COUNT 211 10x3/uL (130-400); RBC 2.87 10x6/uL (4.20-6.10); RDW 15.9 % (11.5-14.5); WBC 14.4 10x3/uL (4.8-10.8)
[2017-12-20 04:33] LABS: INR 1.39 (0.85-1.17); PROTIME 16.6 SECONDS (11.6-15.0)
[2017-12-20 04:37] LABS: BILIRUBIN - TOTAL 0.2 mg/dL (0.2-1.3); CALCIUM 8.6 mg/dL (8.5-10.1); CARBON DIOXIDE 14.8 mmol/L (21.0-32.0); CREATININE - SERUM 5.8 mg/dL (0.6-1.3); POTASSIUM - SERUM 3.8 mmol/L (3.5-5.1); PROTEIN - SERUM 6.7 g/dL (6.4-8.2)
[2017-12-21] VITALS (30 sets, daily range): BP systolic 68–147; BP diastolic 45–78
[2017-12-21 05:23] LABS: BASOPHILS 0.1 % (0-2); EOSINOPHILS 3.9 % (0-7); IMMATURE GRANULOCYTES 0.4 % (0-5); LYMPHOCYTES 11.3 % (15-50); MCH 27.7 pg (26.0-34.0); MCHC 34.8 g/dL (31.0-37.0); MCV 79.7 fL (80.0-100.0); MEAN PLATELET VOLUME 9.7 fL (7.4-10.4); MONOCYTES 10.7 % (2-11); NEUTROPHILS 73.6 % (40-80); PLATELET COUNT 189 10x3/uL (130-400); RDW 15.9 % (11.5-14.5); WBC 13.6 10x3/uL (4.8-10.8)
[2017-12-21 05:32] LABS: HEMATOCRIT 28.2 % (42.0-54.0); HEMOGLOBIN 9.8 g/dL (13.5-17.5); RBC 3.54 10x6/uL (4.20-6.10)
[2017-12-21 06:43] LABS: ALBUMIN 2.1 g/dL (3.4-5.0); ANION GAP 22.6 mmol/L (8-16); BILIRUBIN - TOTAL 0.33 mg/dL (0.2-1.3); CALCIUM 8.6 mg/dL (8.5-10.1); CARBON DIOXIDE 14.2 mmol/L (21.0-32.0); CREATININE - SERUM 5.9 mg/dL (0.6-1.3); POTASSIUM - SERUM 3.8 mmol/L (3.5-5.1); PROTEIN - SERUM 6.9 g/dL (6.4-8.2)
[2017-12-22] VITALS (23 sets, daily range): BP systolic 108–143; BP diastolic 47–81
[2017-12-22 05:51] LABS: BASOPHILS 0.2 % (0-2); EOSINOPHILS 3.1 % (0-7); HEMATOCRIT 24.5 % (42.0-54.0); HEMOGLOBIN 8.4 g/dL (13.5-17.5); IMMATURE GRANULOCYTES 0.4 % (0-5); LYMPHOCYTES 14.8 % (15-50); MCH 27.9 pg (26.0-34.0); MCHC 34.3 g/dL (31.0-37.0); MCV 81.4 fL (80.0-100.0); MEAN PLATELET VOLUME 9.8 fL (7.4-10.4); MONOCYTES 11.4 % (2-11); NEUTROPHILS 70.1 % (40-80); PLATELET COUNT 226 10x3/uL (130-400); RBC 3.01 10x6/uL (4.20-6.10); RDW 16.5 % (11.5-14.5)
[2017-12-22 06:31] LABS: ANION GAP 16.9 mmol/L (8-16); CALCIUM 8.2 mg/dL (8.5-10.1); CARBON DIOXIDE 16.2 mmol/L (21.0-32.0); CREATININE - SERUM 5.5 mg/dL (0.6-1.3); POTASSIUM - SERUM 4.1 mmol/L (3.5-5.1)
[2017-12-23] VITALS (10 sets, daily range): BP systolic 132–161; BP diastolic 68–77
[2017-12-23 05:17] LABS: BASOPHILS 0.1 % (0-2); EOSINOPHILS 3.7 % (0-7); IMMATURE GRANULOCYTES 0.4 % (0-5); LYMPHOCYTES 13.7 % (15-50); MCH 27.3 pg (26.0-34.0); MCHC 33.5 g/dL (31.0-37.0); MCV 81.4 fL (80.0-100.0); MEAN PLATELET VOLUME 10.4 fL (7.4-10.4); MONOCYTES 9.6 % (2-11); NEUTROPHILS 72.5 % (40-80); PLATELET COUNT 263 10x3/uL (130-400); RDW 16.7 % (11.5-14.5); WBC 13.5 10x3/uL (4.8-10.8)
[2017-12-23 05:26] LABS: INR 1.4 (0.85-1.17); PROTIME 16.7 SECONDS (11.6-15.0)
[2017-12-23 05:28] LABS: HEMOGLOBIN 10.4 g/dL (13.5-17.5); RBC 3.81 10x6/uL (4.20-6.10)
[2017-12-23 05:35] LABS: ANION GAP 19.5 mmol/L (8-16); CALCIUM 8.5 mg/dL (8.5-10.1); CARBON DIOXIDE 14.9 mmol/L (21.0-32.0); CREATININE - SERUM 5.1 mg/dL (0.6-1.3); POTASSIUM - SERUM 4.4 mmol/L (3.5-5.1)
[2017-12-23 15:24] LABS: OVA + PARASITE EXAM Final report (())
[2017-12-24 04:56] LABS: BASOPHILS 0.1 % (0-2); EOSINOPHILS 4.8 % (0-7); HEMATOCRIT 31.9 % (42.0-54.0); HEMOGLOBIN 10.8 g/dL (13.5-17.5); IMMATURE GRANULOCYTES 0.4 % (0-5); MCH 27.5 pg (26.0-34.0); MCHC 33.9 g/dL (31.0-37.0); MCV 81.2 fL (80.0-100.0); MEAN PLATELET VOLUME 10.2 fL (7.4-10.4); MONOCYTES 9.6 % (2-11); NEUTROPHILS 74.1 % (40-80); PLATELET COUNT 295 10x3/uL (130-400); RBC 3.93 10x6/uL (4.20-6.10); RDW 16.4 % (11.5-14.5); WBC 14.5 10x3/uL (4.8-10.8)
[2017-12-24 05:02] VITALS: BP 167/75
[2017-12-24 05:19] LABS: ANION GAP 17.6 mmol/L (8-16); CALCIUM 8.3 mg/dL (8.5-10.1); CARBON DIOXIDE 15.5 mmol/L (21.0-32.0); CREATININE - SERUM 4.5 mg/dL (0.6-1.3); POTASSIUM - SERUM 4.1 mmol/L (3.5-5.1)
[2017-12-24 08:33] VITALS: BP 120/72
[2017-12-24 12:45] VITALS: BP 112/67
[2017-12-24] MEDS ORDERED: FLOMAX0.4 MG PO (13:57)
[2017-12-24] MEDS ORDERED: PREMARIN0.625 MG PO (14:02)
[2017-12-24] MEDS ORDERED: D5 1/2NS 10001000 ML IV (14:32)
== END 2017-12-24 18:51 | DRG 377 ==
LOC: D.ER 19:34 → D.ICU 22:15 → D.MS 12-23 14:39
PROVIDERS: Family Medicine; Internal Medicine Gastroenterology
PROC: 0W3P8ZZ Control Bleeding in Gastrointestinal Tract, Via Natural or Artificial Opening Endoscopic (ICD-10-PCS; 2017-12-21)
PROC: 0DB78ZX Excision of Stomach, Pylorus, Via Natural or Artificial Opening Endoscopic, Diagnostic (ICD-10-PCS; principal; 2017-12-21 07:00)
DX: K31.811 Angiodysplasia of stomach and duodenum with bleeding (principal); I50.23 Acute on chronic systolic (congestive) heart failure; N17.0 Acute kidney failure with tubular necrosis; D62 Acute posthemorrhagic anemia; I13.0 Hypertensive heart and chronic kidney disease with heart failure and stage 1 through stage 4 chronic kidney disease, or unspecified chronic kidney disease; B20 Human immunodeficiency virus [HIV] disease; K31.7 Polyp of stomach and duodenum; K44.9 Diaphragmatic hernia without obstruction or gangrene; B19.20 Unspecified viral hepatitis C without hepatic coma; I25.10 Atherosclerotic heart disease of native coronary artery without angina pectoris; I73.9 Peripheral vascular disease, unspecified; E11.22 Type 2 diabetes mellitus with diabetic chronic kidney disease; N18.3 Chronic kidney disease, stage 3 (moderate)

== ENCOUNTER 2017-12-24 19:28 | Emergency (ER) | payer OTHER ==
[~2017-12-24] VITALS: Ht 170.2 cm; Wt 113.6 kg
[~2017-12-24 19:28] MED LIST changes: +D5 1/2NS 10001000 ML IV; +FLOMAX0.4 MG PO; +PREMARIN0.625 MG PO
[2017-12-24 19:31] VITALS: Ht 170.2 cm; Wt 113.6 kg
[2017-12-24 22:54] VITALS: BP 164/78
== END 2017-12-24 23:58 ==
LOC: D.ER 19:28
DX: R94.31 Abnormal electrocardiogram [ECG] [EKG] (principal); Z86.73 Personal history of transient ischemic attack (TIA), and cerebral infarction without residual deficits; E11.9 Type 2 diabetes mellitus without complications; I10 Essential (primary) hypertension; I73.9 Peripheral vascular disease, unspecified; I12.9 Hypertensive chronic kidney disease with stage 1 through stage 4 chronic kidney disease, or unspecified chronic kidney disease; N18.9 Chronic kidney disease, unspecified; B19.20 Unspecified viral hepatitis C without hepatic coma

== ENCOUNTER 2017-12-27 16:24 | Inpatient (IN) | payer MEDICAID ==
[~2017-12-27] VITALS: Ht 170.2 cm; Wt 81.6 kg
--- NOTE | ~2017-12-27 | MORECARE ---
CASE MANAGEMENT DISCHARGE SUMMARY PATIENT: KAYLIE LONG UNIT: [id number] ADM DATE: 12/27/17 AGE: 77 : 42 SEX: M ROOM/BED: D.2233 AUTHOR: LUZ MARIA WALLS PHYSICIAN: REFERRING PHYSICIAN: KI QUINTANA MD DATE OF SERVICE: 01/05/18 Discharge Plan Patient Name: KAYLIE LONG Facility: [facility]:[place] : 1940 Planned Disposition: Court\Law Enforcement Anticipated Discharge Date: Discharge Date: 01/04/2018 Expected LOS: 0 Initial Reviewer: [email or web address] Initial Review Date: 12/28/2017 Generated: 01/05/18 7:45 am Comments DCP- Discharge Planning Updated by [email or web address]: Nita Magana on 01/04/18 3:[address] Spoke with Dennis from [facility] and she states ok for ambulance with proper necessity forms. mortgage loan coordinator notified. DCP- Discharge Planning Updated by [email or web address]: Nita Magana on 01/04/18 11:[address] Received order for discharge. Discharge orders and summary faxed to [facility]. No change in plan. Tenecia with [facility] states no needs for DME and the guard will arrange transportation. DCP- Discharge Planning Updated by [email or web address]: Nita Magana on 01/04/18 9:[address] Spoke with Dennis at [facility] and clinical sent. Dennis states he will go to the [facility] in [place] from here when discharged and the guard will make all arrangements. Doc to Doc to be done with Dr. Brown by calling [phone]. I gave this information to Dr. Reyes's APARTMENT HOTEL MANAGER. CM will continue to follow and assist with discharge planning/needs. DCP- Discharge Planning Updated by [email or web address]: Nita Magana on 12/28/17 4:[address] Patient Name: KAYLIE LONG Admission Status: Elective Accout number: [id number] Admission Date: 12-27-2017 : 1940 Admission Diagnosis: Attending: KI QUINTANA Current LOS: 1 Anticipated DC Date: Planned Disposition: Court\Law Enforcement Primary Insurance: MEDICAID [place] PENDING Discharge Planning Comments: Patient is a resident of [facility]. Plan is to return to [facility] on discharge. Guard is at bedside. CM will continue to follow and assist with discharge planning/needs. Cause Analyst: Nita Esposito DP export: 01/04/18 3:51 p Patient Name: KAYLIE LONG Page 58948 at 0645 All edits/amendments must be made on the electronic document DICTATION DATE: 01/05/18643 MATERIAL DISPATCHER: ABIOLA 01/05/18643 RPT#: [id number] DC DATE:01/04/18 STATUS: DIS IN [facility] [address] [place] [address] END OF REPORT
--- NOTE | ~2017-12-27 | MORECARE ---
CASE MANAGEMENT DISCHARGE SUMMARY PATIENT: KAYLIE LONG UNIT: [id number] ADM DATE: 12/27/17 AGE: 77 : 42 SEX: M ROOM/BED: D.2233 AUTHOR: LUZ MARIA WALLS PHYSICIAN: REFERRING PHYSICIAN: KI QUINTANA MD DATE OF SERVICE: 01/04/18 Discharge Plan Patient Name: KAYLIE LONG Facility: [facility]:[place] : 1940 Planned Disposition: Court\Law Enforcement Anticipated Discharge Date: Discharge Date: Expected LOS: Initial Reviewer: [email or web address] Initial Review Date: 12/28/2017 Generated: 01/04/18 1:42 pm Comments DCP- Discharge Planning Updated by [email or web address]: Nita Magana on 01/04/18 11:[address] Received order for discharge. Discharge orders and summary faxed to [facility]. No change in plan. Dennis with [facility] states no needs for DME and the guard will arrange transportation. DCP- Discharge Planning Updated by [email or web address]: Nita Magana on 01/04/18 9:[address] Spoke with Dennis at [facility] and clinical sent. Dennis states he will go to the hospital in [place] from here when discharged and the guard will make all arrangements. Doc to Doc to be done with Dr. Brown by calling [phone]. I gave this information to Dr. Reyes's MEDICARE CONTACT SPECIALIST. CM will continue to follow and assist with discharge planning/needs. DCP- Discharge Planning Updated by [email or web address]: Nita Magana on 12/28/17 4:[address] Patient Name: KAYLIE LONG Admission Status: Elective Accout number: [id number] Admission Date: 12-27-2017 : 1940 Admission Diagnosis: Attending: KI QUINTANA Current LOS: 1 Anticipated DC Date: Planned Disposition: Court\Law Enforcement Primary Insurance: MEDICAID LONG-TERM PENDING Discharge Planning Comments: Patient is a resident of [facility]. Plan is to return to [facility] on discharge. Guard is at bedside. CM will continue to follow and assist with discharge planning/needs. Alumni Relations Manager: Nita Magana Last DP export: 01/04/18 9:23 a Patient Name: KAYLIE LONG Page 31931 at 1242 All edits/amendments must be made on the electronic document DICTATION DATE: 01/04/181240 MANAGER MOBILITY: ABIOLA 01/04/181240 RPT#: [id number] DC DATE: STATUS: ADM IN [facility] [address] [place] [address] END OF REPORT
--- NOTE | ~2017-12-27 | MORECARE ---
CASE MANAGEMENT DISCHARGE SUMMARY PATIENT: KAYLIE LONG UNIT: [id number] ADM DATE: 12/27/17 AGE: 77 : 42 SEX: M ROOM/BED: D.2233 AUTHOR: LUZ MARIA WALLS PHYSICIAN: REFERRING PHYSICIAN: KI QUINTANA MD DATE OF SERVICE: 01/04/18 Discharge Plan Patient Name: KYALIE LONG Facility: [facility]:[place] : 1940 Planned Disposition: Court\Law Enforcement Anticipated Discharge Date: Discharge Date: Expected LOS: Initial Reviewer: [id number] Initial Review Date: 12/28/2017 Generated: 01/04/18 11:23 am Comments DCP- Discharge Planning Updated by [email or web address]: Nita Magana on 01/04/18 9:[address] Spoke with Dennis at [facility] and clinical sent. Dennis states he will go to the [facility] in [place] from here when discharged and the guard will make all arrangements. Doc to Doc to be done with Dr. Brown by calling [phone]. I gave this information to Dr. Reyes's LEASE ANALYST. CM will continue to follow and assist with discharge planning/needs. DCP- Discharge Planning Updated by [email or web address]: Nita Magana on 12/28/17 4:[address] Patient Name: KAYLIE LONG Admission Status: Elective Accout number: [id number] Admission Date: 12-27-2017 : 1940 Admission Diagnosis: Attending: KI QUINTANA Current LOS: 1 Anticipated DC Date: Planned Disposition: Court\Law Enforcement Primary Insurance: MEDICAID USP PENDING Discharge Planning Comments: Patient is a resident of [facility]. Plan is to return to [facility] on discharge. Guard is at bedside. CM will continue to follow and assist with discharge planning/needs. Locomotive Pipe Fitter: Nita Magana Last DP export: 12/28/17 4:52 Patient Name: KAYLIE LONG Page 78672 at 1023 All edits/amendments must be made on the electronic document DICTATION DATE: 01/04/18 1023 MANAGER SPECIAL EVENTS: ABIOLA 01/04/18 1023 RPT#: [id number] DC DATE: STATUS: ADM IN [facility] [address] [place] [address] END OF REPORT
--- NOTE | ~2017-12-27 | MORECARE ---
CASE MANAGEMENT DISCHARGE SUMMARY PATIENT: KAYLIE LONG UNIT: [id number] ADM DATE: 12/27/17 AGE: 77 : 42 SEX: M ROOM/BED: D.2233 AUTHOR: LUZ MARIA WALLS PHYSICIAN: REFERRING PHYSICIAN: KI QUINTANA MD DATE OF SERVICE: 01/04/18 Discharge Plan Patient Name: KAYLIE LONG Facility: [facility]:[place] : 1940 Planned Disposition: Court\Law Enforcement Anticipated Discharge Date: Discharge Date: 01/04/2018 Expected LOS: Initial Reviewer: [email or web address] Initial Review Date: 12/28/2017 Generated: 01/04/18 5:51 pm Comments DCP- Discharge Planning Updated by [email or web address]: Nita Magana on 01/04/18 3:[address] Spoke with Dennis from [facility] and she states ok for ambulance with proper necessity forms. sales coordinator notified. DCP- Discharge Planning Updated by [email or web address]: Nita Magana on 01/04/18 11:[address] Received order for discharge. Discharge orders and summary faxed to [facility]. No change in plan. Tenecia with [facility] states no needs for DME and the guard will arrange transportation. DCP- Discharge Planning Updated by [email or web address]: Nita Magana on 01/04/18 9:[address] Spoke with Dennis at [facility] and clinical sent. Dennis states he will go [facility] the [facility] [place] from here when discharged and the guard will make all arrangements. Doc to Doc to be done with Dr. Brown by calling [phone]. I gave this information to Dr. Reyes's TYPISTS SUPERVISOR. CM will continue to follow and assist with discharge planning/needs. DCP- Discharge Planning Updated by [email or web address]: Nita Magana on 12/28/17 4:[address] Patient Name: KAYLIE LONG Admission Status: Elective Accout number: [id number] Admission Date: 12-27-2017 : 1940 Admission Diagnosis: Attending: KI QUINTANA Current LOS: 1 Anticipated DC Date: Planned Disposition: Court\Law Enforcement Primary Insurance: MEDICAID LONG-TERM PENDING Discharge Planning Comments: Patient is a resident of [facility]. Plan is to return to [facility] on discharge. Guard is at bedside. CM will continue to follow and assist with discharge planning/needs. Rubber Compounder: Nita Esposito DP export: 01/04/18 11:42 a Patient Name: KAYLIE LONG Page 41549 at 1651 All edits/amendments must be made on the electronic document DICTATION DATE: 01/04/181650 RN STAFF: ABIOLA 01/04/181650 RPT#: [id number] DC DATE:01/04/18 STATUS: DIS IN [facility] [address] [place] [address] END OF REPORT
--- NOTE | ~2017-12-27 | MORECARE ---
CASE MANAGEMENT DISCHARGE SUMMARY PATIENT: KAYLIE LONG UNIT: [id number] ADM DATE: 12/27/17 AGE: 77 : 42 SEX: M ROOM/BED: D.2233 AUTHOR: LUZ MARIA WALLS PHYSICIAN: REFERRING PHYSICIAN: KI QUINTANA MD DATE OF SERVICE: 12/28/17 Discharge Plan Patient Name: KAYLIE LONG Facility: [facility]:[place] : 1940 Planned Disposition: Court\Law Enforcement Anticipated Discharge Date: Discharge Date: Expected LOS: Initial Reviewer: [email or web address] Initial Review Date: 12/28/2017 Generated: 12/28/17 5:52 pm Comments DCP- Discharge Planning Updated by [email or web address]: Nita Magana on 12/28/17 3:[address] Patient Name: KAYLIE LONG Admission Status: Elective Accout number: [id number] Admission Date: 12-27-2017 : 1940 Admission Diagnosis: Attending: KI QUINTANA Current LOS: 1 Anticipated DC Date: Planned Disposition: Court\Law Enforcement Primary Insurance: MEDICAID JAIL PENDING Discharge Planning Comments: Patient is a resident of [facility]. Plan is to return to [facility] on discharge. Guard is at bedside. CM will continue to follow and assist with discharge planning/needs. Linux Devops Engineer: Nita Magana Patient Name: KAYLIE LONG Page 22552 at 1652 All edits/amendments must be made on the electronic document DICTATION DATE: 12/28/171651 WEED SPRAYER: ABIOLA 12/28/171651 RPT#: [id number] DC DATE: STATUS: ADM IN [facility] [address] [place] [address] END OF REPORT
[2017-12-27] MEDS ORDERED: ZOSYN 2.25 GM2.25 G1 IV (18:03)
[2017-12-27] MEDS ORDERED: HUMULIN 70100 UNIT/1 SC ×3 (18:04→18:32)
[2017-12-27] MEDS ORDERED: HUMULIN R100 U/ML SC (18:05)
[2017-12-27 18:42] VITALS: BP 152/58
[2017-12-27 20:00] VITALS: BP 154/65
[2017-12-28] VITALS (11 sets, daily range): BP systolic 101–160; BP diastolic 49–93; BMI 28.2
[2017-12-28 05:35] LABS: BASOPHILS 0.2 % (0-2); EOSINOPHILS 4.6 % (0-7); HEMATOCRIT 34.3 % (42.0-54.0); HEMOGLOBIN 11.6 g/dL (13.5-17.5); IMMATURE GRANULOCYTES 0.3 % (0-5); MCH 27.7 pg (26.0-34.0); MCHC 33.8 g/dL (31.0-37.0); MCV 81.9 fL (80.0-100.0); MEAN PLATELET VOLUME 9.7 fL (7.4-10.4); MONOCYTES 7.8 % (2-11); NEUTROPHILS 79.1 % (40-80); RBC 4.19 10x6/uL (4.20-6.10); WBC 16.1 10x3/uL (4.8-10.8)
[2017-12-28 05:37] LABS: PLATELET COUNT 412 10x3/uL (130-400)
[2017-12-28 05:55] LABS: ALBUMIN 2.1 g/dL (3.4-5.0); ANION GAP 16.2 mmol/L (8-16); BILIRUBIN - TOTAL 0.24 mg/dL (0.2-1.3); CALCIUM 8.8 mg/dL (8.5-10.1); CARBON DIOXIDE 20.3 mmol/L (21.0-32.0); CREATININE - SERUM 3.2 mg/dL (0.6-1.3); MAGNESIUM - SERUM 1.7 mg/dL (1.8-2.4); PHOSPHOROUS 4.3 mg/dL (2.5-4.9); POTASSIUM - SERUM 4.5 mmol/L (3.5-5.1); PROTEIN - SERUM 7.8 g/dL (6.4-8.2)
[2017-12-29 01:56] LABS: APPEARANCE CLEAR (CLEAR); COLOR YELLOW (YELLOW); GLUCOSE 250 mg/dL (NEGATIVE); KETONE NEGATIVE (NEGATIVE); NITRITE NEGATIVE (NEGATIVE); PROTEIN TRACE mg/dL (NEGATIVE); SPECIFIC GRAVITY 1.015 (1.005-1.020); UROBILINOGEN NORMAL (NORMAL)
[2017-12-29 01:57] LABS: BILIRUBIN NEGATIVE (NEGATIVE)
[2017-12-29 01:58] LABS: BACTERIA FEW /hpf (NONE SEEN); EPITHELIAL CELLS 0-5 /hpf (0-5); RED CELLS - URINE 0-5 /hpf (0-5); WHITE CELLS - URINE 0-5 /hpf (0-5)
[2017-12-29 05:00] VITALS: BP 114/43
[2017-12-29 06:15] LABS: BASOPHILS 0.2 % (0-2); EOSINOPHILS 3.3 % (0-7); HEMATOCRIT 34.1 % (42.0-54.0); HEMOGLOBIN 11.1 g/dL (13.5-17.5); IMMATURE GRANULOCYTES 0.3 % (0-5); LYMPHOCYTES 8.9 % (15-50); MCH 27.1 pg (26.0-34.0); MCHC 32.6 g/dL (31.0-37.0); MCV 83.4 fL (80.0-100.0); MEAN PLATELET VOLUME 10.2 fL (7.4-10.4); MONOCYTES 9.1 % (2-11); NEUTROPHILS 78.2 % (40-80); PLATELET COUNT 388 10x3/uL (130-400); RBC 4.09 10x6/uL (4.20-6.10); RDW 16.4 % (11.5-14.5); WBC 12.5 10x3/uL (4.8-10.8)
[2017-12-29 06:46] LABS: ANION GAP 21.3 mmol/L (8-16); CALCIUM 8.4 mg/dL (8.5-10.1); CARBON DIOXIDE 13.8 mmol/L (21.0-32.0); CREATININE - SERUM 3.3 mg/dL (0.6-1.3); PHOSPHOROUS 4.9 mg/dL (2.5-4.9); POTASSIUM - SERUM 5.1 mmol/L (3.5-5.1)
[2017-12-29 09:32] VITALS: BP 134/55
[2017-12-29 12:00] VITALS: BP 141/54
[2017-12-29 12:20] VITALS: Ht 170.2 cm; Wt 81.6 kg
[2017-12-29 21:35] VITALS: BP 138/49
[2017-12-30 05:12] VITALS: BP 162/39
[2017-12-30 06:30] LABS: BASOPHILS 0.1 % (0-2); EOSINOPHILS 2.6 % (0-7); HEMATOCRIT 29.3 % (42.0-54.0); HEMOGLOBIN 9.8 g/dL (13.5-17.5); IMMATURE GRANULOCYTES 0.4 % (0-5); LYMPHOCYTES 9.3 % (15-50); MCHC 33.4 g/dL (31.0-37.0); MCV 80.7 fL (80.0-100.0); MEAN PLATELET VOLUME 9.5 fL (7.4-10.4); MONOCYTES 10.5 % (2-11); NEUTROPHILS 77.1 % (40-80); PLATELET COUNT 359 10x3/uL (130-400); RBC 3.63 10x6/uL (4.20-6.10); RDW 15.8 % (11.5-14.5); WBC 14.5 10x3/uL (4.8-10.8)
[2017-12-30 07:03] LABS: CALCIUM 7.9 mg/dL (8.5-10.1); CREATININE - SERUM 3.5 mg/dL (0.6-1.3); PHOSPHOROUS 3.8 mg/dL (2.5-4.9)
[2017-12-30 07:04] LABS: ANION GAP 16.1 mmol/L (8-16); CARBON DIOXIDE 18.1 mmol/L (21.0-32.0); POTASSIUM - SERUM 4.2 mmol/L (3.5-5.1)
[2017-12-30 08:29] VITALS: BP 141/59
[2017-12-30 12:21] VITALS: BP 130/64
[2017-12-30 17:55] VITALS: BP 123/57
[2017-12-30 21:26] VITALS: BP 134/62
[2017-12-31 04:51] VITALS: BP 174/69
[2017-12-31 07:37] LABS: LYMPHOCYTES 18 % (15-50); MONOCYTES 12 % (2-11); NEUTROPHILS 70 % (40-80); PLATELET ESTIMATE NORMAL
[2017-12-31 07:38] LABS: PLATELET MORPHOLOGY NORMAL PLT MORPH
[2017-12-31 07:42] LABS: BASOPHILS 0.2 % (0-2); EOSINOPHILS 1.5 % (0-7); IMMATURE GRANULOCYTES 0.3 % (0-5); WBC 18.2 10x3/uL (4.8-10.8)
[2017-12-31 07:43] LABS: HEMATOCRIT 29.5 % (42.0-54.0); HEMOGLOBIN 9.9 g/dL (13.5-17.5); RBC 3.67 10x6/uL (4.20-6.10)
[2017-12-31 07:44] LABS: MCHC 33.6 g/dL (31.0-37.0); MCV 80.4 fL (80.0-100.0)
[2017-12-31 07:45] LABS: MEAN PLATELET VOLUME 9.4 fL (7.4-10.4); PLATELET COUNT 291 10x3/uL (130-400); RDW 15.6 % (11.5-14.5)
[2017-12-31 08:14] LABS: ANION GAP 22.6 mmol/L (8-16); CALCIUM 7.8 mg/dL (8.5-10.1); CREATININE - SERUM 3.2 mg/dL (0.6-1.3); PHOSPHOROUS 4.1 mg/dL (2.5-4.9); POTASSIUM - SERUM 4.6 mmol/L (3.5-5.1); VANCOMYCIN - RANDOM 10.2 ug/mL (10.0-20.0)
[2017-12-31 09:35] VITALS: BP 145/63
[2017-12-31 16:30] VITALS: BP 135/59
[2017-12-31 20:39] VITALS: BP 142/49
[2018-01-01 00:20] VITALS: BP 154/60
[2018-01-01 05:02] VITALS: BP 117/54
[2018-01-01 09:04] VITALS: BP 169/42
[2018-01-01 09:58] LABS: BASOPHILS 0.1 % (0-2); EOSINOPHILS 1.3 % (0-7); HEMATOCRIT 27.6 % (42.0-54.0); HEMOGLOBIN 9.3 g/dL (13.5-17.5); IMMATURE GRANULOCYTES 0.5 % (0-5); MCH 27.4 pg (26.0-34.0); MCHC 33.7 g/dL (31.0-37.0); MCV 81.2 fL (80.0-100.0); MONOCYTES 13.1 % (2-11); PLATELET COUNT 311 10x3/uL (130-400); RDW 15.6 % (11.5-14.5); WBC 19.6 10x3/uL (4.8-10.8)
[2018-01-01 10:09] LABS: ANION GAP 19.6 mmol/L (8-16); CALCIUM 8.5 mg/dL (8.5-10.1); CREATININE - SERUM 3.1 mg/dL (0.6-1.3); PHOSPHOROUS 4.6 mg/dL (2.5-4.9); POTASSIUM - SERUM 4.6 mmol/L (3.5-5.1)
[2018-01-01 11:52] VITALS: BP 154/56
[2018-01-01 15:32] VITALS: BP 145/41
[2018-01-01 20:50] VITALS: BP 158/45
[2018-01-02 01:20] VITALS: BP 163/53
[2018-01-02 05:28] VITALS: BP 176/59
[2018-01-02 08:37] VITALS: BP 173/63
[2018-01-02 08:42] LABS: BASOPHILS 0.2 % (0-2); EOSINOPHILS 3.7 % (0-7); HEMATOCRIT 30.6 % (42.0-54.0); IMMATURE GRANULOCYTES 0.4 % (0-5); LYMPHOCYTES 7.8 % (15-50); MCHC 32.7 g/dL (31.0-37.0); MCV 82.5 fL (80.0-100.0); MONOCYTES 10.8 % (2-11); NEUTROPHILS 77.1 % (40-80); RBC 3.71 10x6/uL (4.20-6.10); RDW 15.4 % (11.5-14.5); WBC 18.4 10x3/uL (4.8-10.8)
[2018-01-02 08:45] LABS: PLATELET COUNT 131 10x3/uL (130-400)
[2018-01-02 08:52] LABS: ANION GAP 17.9 mmol/L (8-16); CALCIUM 8.6 mg/dL (8.5-10.1); CARBON DIOXIDE 17.7 mmol/L (21.0-32.0); CREATININE - SERUM 2.7 mg/dL (0.6-1.3); PHOSPHOROUS 4.1 mg/dL (2.5-4.9); POTASSIUM - SERUM 4.6 mmol/L (3.5-5.1)
[2018-01-02 13:07] VITALS: BP 127/58
[2018-01-02 16:55] VITALS: BP 172/63
[2018-01-02 20:00] VITALS: BP 132/49
[2018-01-03 05:00] VITALS: BP 152/60
[2018-01-03 06:14] LABS: BASOPHILS 0.1 % (0-2); EOSINOPHILS 4.3 % (0-7); HEMATOCRIT 25.9 % (42.0-54.0); HEMOGLOBIN 8.5 g/dL (13.5-17.5); IMMATURE GRANULOCYTES 0.3 % (0-5); LYMPHOCYTES 9.8 % (15-50); MCH 26.4 pg (26.0-34.0); MCHC 32.8 g/dL (31.0-37.0); MEAN PLATELET VOLUME 9.3 fL (7.4-10.4); MONOCYTES 12.6 % (2-11); NEUTROPHILS 72.9 % (40-80); RBC 3.22 10x6/uL (4.20-6.10); RDW 15.3 % (11.5-14.5); WBC 13.9 10x3/uL (4.8-10.8)
[2018-01-03 06:19] LABS: MCV 80.4 fL (80.0-100.0); PLATELET COUNT 336 10x3/uL (130-400)
[2018-01-03 06:49] LABS: ALBUMIN 1.8 g/dL (3.4-5.0); ANION GAP 16.1 mmol/L (8-16); BILIRUBIN - TOTAL 0.37 mg/dL (0.2-1.3); CALCIUM 8.3 mg/dL (8.5-10.1); CARBON DIOXIDE 19.2 mmol/L (21.0-32.0); CREATININE - SERUM 2.6 mg/dL (0.6-1.3); POTASSIUM - SERUM 4.3 mmol/L (3.5-5.1); PROTEIN - SERUM 6.7 g/dL (6.4-8.2)
[2018-01-03 08:51] VITALS: BP 170/61
[2018-01-03] MEDS ORDERED: BACLOFEN10 MG PO (09:44)
[2018-01-03 14:50] VITALS: BP 143/59
[2018-01-03 16:48] VITALS: BP 134/54
[2018-01-03 20:25] VITALS: BP 145/66
[2018-01-04] VITALS: BP 166/66
[2018-01-04 05:00] VITALS: BP 167/69
[2018-01-04 06:48] LABS: BASOPHILS 0.2 % (0-2); EOSINOPHILS 3.9 % (0-7); HEMATOCRIT 28.6 % (42.0-54.0); HEMOGLOBIN 9.5 g/dL (13.5-17.5); IMMATURE GRANULOCYTES 0.2 % (0-5); LYMPHOCYTES 12.7 % (15-50); MCH 26.8 pg (26.0-34.0); MCHC 33.2 g/dL (31.0-37.0); MCV 80.6 fL (80.0-100.0); MEAN PLATELET VOLUME 9.1 fL (7.4-10.4); MONOCYTES 13.4 % (2-11); NEUTROPHILS 69.6 % (40-80); PLATELET COUNT 360 10x3/uL (130-400); RBC 3.55 10x6/uL (4.20-6.10); RDW 15.1 % (11.5-14.5)
[2018-01-04 07:07] LABS: ALBUMIN 1.9 g/dL (3.4-5.0); ANION GAP 18.4 mmol/L (8-16); BILIRUBIN - TOTAL 0.44 mg/dL (0.2-1.3); CALCIUM 8.8 mg/dL (8.5-10.1); CARBON DIOXIDE 17.7 mmol/L (21.0-32.0); CREATININE - SERUM 2.4 mg/dL (0.6-1.3); POTASSIUM - SERUM 4.1 mmol/L (3.5-5.1); PROTEIN - SERUM 8.1 g/dL (6.4-8.2)
[2018-01-04 09:57] VITALS: BP 147/59
[2018-01-04 12:48] VITALS: BP 153/87
[2018-01-04] MEDS ORDERED: SODIUM BICARBO650 MG PO (13:54)
== END 2018-01-04 15:49 | DRG 854 ==
LOC: D.ICU → D.MS 16:45
PROVIDERS: Family Medicine; Internal Medicine Nephrology; Orthopaedic Surgery; Student in an Organized Health Care Education/Training Program
PROC: 0JBQ0ZZ Excision of Right Foot Subcutaneous Tissue and Fascia, Open Approach (ICD-10-PCS; 2017-12-28)
PROC: 0QBN0ZZ Excision of Right Metatarsal, Open Approach (ICD-10-PCS; principal; 2017-12-28 14:00)
PROC: 0Y6H0Z3 Detachment at Right Lower Leg, Low, Open Approach (ICD-10-PCS; 2017-12-30)
DX: A41.9 Sepsis, unspecified organism (principal); L03.116 Cellulitis of left lower limb; L97.416 Non-pressure chronic ulcer of right heel and midfoot with bone involvement without evidence of necrosis; N17.9 Acute kidney failure, unspecified; N13.1 Hydronephrosis with ureteral stricture, not elsewhere classified; N13.8 Other obstructive and reflux uropathy; M86.171 Other acute osteomyelitis, right ankle and foot; E11.621 Type 2 diabetes mellitus with foot ulcer; E11.65 Type 2 diabetes mellitus with hyperglycemia; E11.22 Type 2 diabetes mellitus with diabetic chronic kidney disease; I12.9 Hypertensive chronic kidney disease with stage 1 through stage 4 chronic kidney disease, or unspecified chronic kidney disease; N18.9 Chronic kidney disease, unspecified; D63.1 Anemia in chronic kidney disease; I25.10 Atherosclerotic heart disease of native coronary artery without angina pectoris; E03.9 Hypothyroidism, unspecified; E11.51 Type 2 diabetes mellitus with diabetic peripheral angiopathy without gangrene; Z21 Asymptomatic human immunodeficiency virus [HIV] infection status; B19.20 Unspecified viral hepatitis C without hepatic coma; N32.0 Bladder-neck obstruction; N40.1 Benign prostatic hyperplasia with lower urinary tract symptoms; E11.69 Type 2 diabetes mellitus with other specified complication; B96.20 Unspecified Escherichia coli [E. coli] as the cause of diseases classified elsewhere; Z86.73 Personal history of transient ischemic attack (TIA), and cerebral infarction without residual deficits; Z86.11 Personal history of tuberculosis

== ENCOUNTER → 2018-01-31 07:58 | Day surgery (SDC) | payer OTHER ==
[2017-12-29 12:20] VITALS: BMI 28.2
--- NOTE | ~2018-01-31 | OP ---
PATIENT NAME: KAYLIE LONG MEDICAL RECORD: [id number] :[birth year] LOCATION:[facility] ADMISSION DATE: SURGEON: GEORGETTE FRANCO MD DATE OF OPERATION: 01/31/2018 PREOPERATIVE DIAGNOSIS: Failure to thrive. 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 PROCEDURES: 1. Esophagogastroduodenoscopy without biopsies. 2. Percutaneous endoscopic gastrostomy tube placement, 20-Fijian. SURGEON: Georgette Franco MD CEMENT BASED MATERIALS PUMP TENDER: None. BLOOD LOSS: Minimal. ANESTHESIA: Local with IV sedation. COMPLICATIONS: None. Biopsies were not obtained as the patient is currently on Plavix. ENDOSCOPIC COURSE: The patient was conveyed to endoscopy suite electively on 01/31/2018. The anesthesia staff was here as the patient is ASA 4. IV sedation was induced by the anesthesia staff. A bite block was inserted. A gastroscope was inserted into the mouth. It was advanced easily into the hypopharynx. The esophagus was easily intubated as were the stomach and duodenum. Upon withdrawal, retroflexed and angulus views were obtained. I cleansed the anterior abdominal wall skin with Betadine. We were able to transilluminate the anterior abdominal wall. A local anesthetic was used to infiltrate the skin and subcutaneous tissues in the epigastrium. A skin incision was accomplished. I then punctured the anterior portion of the fundus on the first try. I advanced a wire. This was grasped with an endoscopic snare and was withdrawn out through the mouth. The wire was attached to a pull-type gastrostomy tube, which was then pulled into place. Hub and flange devices were attached. I re-endoscoped the patient's esophagus and stomach. The gastrostomy tube appeared to be well placed. The endoscope was then withdrawn under direct vision. The feeding tube can be used today for medications and then tomorrow for tube feedings. The patient is going to be at risk for a refeeding syndrome. There is no need for the patient to follow up with me in the office unless he develops a complication related to this operation. TRANSINT:[id number] Voice Confirmation ID: [id number] DOCUMENT ID: [id number] OPERATIVE REPORT [id number] KAYLIE LONG GEORGETTE FRANCO MD at [address] CC: NANCIE JENSEN MD, GEORGETTE GODOY MD, RAYNE GARAY MD and [id number] L DICTATION DATE: 01/31/18 1055 DISTRICT LOSS PREVENTION MANAGER: 01/31/18 1115 [address] [place] [id number] [place] [id number]
--- NOTE | ~2018-01-31 | HP ---
PATIENT: KAYLIE LONG MEDICAL RECORD: [id number] ACCOUNT: [id number] LOCATION:[facility] : [birth year] ADMISSION DATE: 01/31/18 PCP: No PCP HISTORY AND PHYSICAL EXAMINATION CHIEF COMPLAINT: Failure to thrive. HISTORY OF PRESENT ILLNESS: The patient is here to have a gastrostomy tube placed. PAST MEDICAL AND SURGICAL HISTORY: History of tuberculosis, hepatitis C, peripheral vascular disease, hypertension, coronary artery disease, anemia, coronary stents, CVA, insulin-dependent diabetes mellitus, HIV positive, melena, bloody diarrhea, necrotic eschar. HOME MEDICATIONS: Please see the nursing list. This includes Plavix. ALLERGIES: No known drug allergies. PHYSICAL EXAMINATION: GENERAL: The patient does appear acutely ill. Also appears chronically ill. VITAL SIGNS: Reviewed. EARS: External ears appear normal. EYES: Extraocular movements are intact. NECK: Trachea is midline. CHEST: No intercostal retractions. PULMONARY: Nonlabored, no stridor. ABDOMEN: Distended. IMPRESSION: Failure to thrive. PLAN: EGD with placement of percutaneous endoscopic gastrostomy tube. TRANSINT:[id number] Voice Confirmation ID: [id number] DOCUMENT ID: [id number] GEORGETTE FRANCO MD at 1909 CC: GEORGETTE GODOY MD, RAYNE GARAY MD and DEMETRA GARVIN [id number] DICTATION DATE: 01/31/18 1038 RETAIL MAINTENANCE TECHNICIAN: 01/31/[address] [facility] [address] [place] [id number]
[~2018-01-31 07:58] MED LIST changes: +BACLOFEN10 MG PO; +HUMULIN R100 U/ML SC; +SODIUM BICARBO650 MG PO; +ZOSYN 2.25 GM2.25 G1 IV
[2018-01-31 08:52] LABS: BASOPHILS 0.2 % (0-2); EOSINOPHILS 3.3 % (0-7); IMMATURE GRANULOCYTES 0.3 % (0-5); LYMPHOCYTES 13.5 % (15-50); MCH 26.3 pg (26.0-34.0); MCHC 32.7 g/dL (31.0-37.0); MCV 80.3 fL (80.0-100.0); MEAN PLATELET VOLUME 9.2 fL (7.4-10.4); MONOCYTES 9.9 % (2-11); NEUTROPHILS 72.8 % (40-80); PLATELET COUNT 291 10x3/uL (130-400); RBC 2.74 10x6/uL (4.20-6.10); WBC 11.5 10x3/uL (4.8-10.8)
[2018-01-31 08:57] LABS: HEMOGLOBIN 7.2 g/dL (13.5-17.5)
[2018-01-31 09:06] LABS: ANION GAP 15.5 mmol/L (8-16); CALCIUM 8.5 mg/dL (8.5-10.1); CARBON DIOXIDE 20.4 mmol/L (21.0-32.0); CREATININE - SERUM 2.3 mg/dL (0.6-1.3); POTASSIUM - SERUM 3.9 mmol/L (3.5-5.1)
== END | disposition home or self-care (01) ==
LOC: D.OPS 07:58
PROVIDERS: Anesthesiology
DX: R62.7 Adult failure to thrive (principal); Z21 Asymptomatic human immunodeficiency virus [HIV] infection status; Z86.11 Personal history of tuberculosis; B19.20 Unspecified viral hepatitis C without hepatic coma; I73.9 Peripheral vascular disease, unspecified; I10 Essential (primary) hypertension; I25.10 Atherosclerotic heart disease of native coronary artery without angina pectoris; Z95.5 Presence of coronary angioplasty implant and graft; D64.9 Anemia, unspecified; E11.9 Type 2 diabetes mellitus without complications; Z86.73 Personal history of transient ischemic attack (TIA), and cerebral infarction without residual deficits; Z79.02 Long term (current) use of antithrombotics/antiplatelets; Z01.812 Encounter for preprocedural laboratory examination

== ENCOUNTER 2018-01-31 08:00 | Day surgery (SDC) | payer OTHER | END 2018-01-31 15:00 | LOC: D.OPS 08:00 | DX: R62.7 Adult failure to thrive (principal); K22.70 Barrett's esophagus without dysplasia; B20 Human immunodeficiency virus [HIV] disease; E11.9 Type 2 diabetes mellitus without complications; D64.9 Anemia, unspecified; B19.20 Unspecified viral hepatitis C without hepatic coma; I10 Essential (primary) hypertension; I25.10 Atherosclerotic heart disease of native coronary artery without angina pectoris; Z86.73 Personal history of transient ischemic attack (TIA), and cerebral infarction without residual deficits ==

== ENCOUNTER 2018-02-23 12:19 | Inpatient (IN) | payer MEDICAID ==
[~2018-02-23] VITALS: Ht 170.2 cm; Wt 65.0 kg
[2018-02-23] VITALS (14 sets, daily range): BP systolic 95–141; BP diastolic 48–87; BMI 24.1
[2018-02-23] MEDS ORDERED: VANCOMYCIN 500500 MG IV (12:24)
[2018-02-23] MEDS ORDERED: ZOSYN 2.25 GM2.25 G1 IV (12:25)
[2018-02-23] MEDS ORDERED: AMOXICILLIN500 M1 PO (12:26)
[2018-02-23] MEDS ORDERED: REGLAN SOL10 MG/10 M PO (12:27)
[2018-02-23] MEDS ORDERED: LIPITOR10 MG PO (12:29)
[2018-02-23 13:18] LABS: HEMOGLOBIN 8.4 g/dL (13.5-17.5); MCH 27.5 pg (26.0-34.0); MCHC 33.6 g/dL (31.0-37.0); MCV 81.7 fL (80.0-100.0); MEAN PLATELET VOLUME 9.5 fL (7.4-10.4); PLATELET COUNT 318 10x3/uL (130-400); RBC 3.06 10x6/uL (4.20-6.10); RDW 17.5 % (11.5-14.5); WBC 23.5 10x3/uL (4.8-10.8)
[2018-02-23 13:21] LABS: APTT 29.3 SECONDS (22.8-39.4); INR 1.21 (0.85-1.17); PROTIME 14.7 SECONDS (11.6-15.0)
[2018-02-23 13:38] LABS: ALBUMIN 1.7 g/dL (3.4-5.0); ANION GAP 17.2 mmol/L (8-16); BILIRUBIN - TOTAL 0.47 mg/dL (0.2-1.3); CALCIUM 8.2 mg/dL (8.5-10.1); CARBON DIOXIDE 16.8 mmol/L (21.0-32.0); CREATININE - SERUM 2.8 mg/dL (0.6-1.3); PROTEIN - SERUM 7.4 g/dL (6.4-8.2)
[2018-02-23 13:40] LABS: EOSINOPHILS 2 % (0-7); LYMPHOCYTES 4 % (15-50); MONOCYTES 1 % (2-11); NEUTROPHILS 91 % (40-80); PLATELET ESTIMATE NORMAL
[2018-02-23 13:47] LABS: TROPONIN-I 0.13 ng/mL (0.000-0.060)
[2018-02-23 15:20] LABS: APPEARANCE HAZY (CLEAR); BILIRUBIN NEGATIVE (NEGATIVE); COLOR YELLOW (YELLOW); GLUCOSE 100 mg/dL (NEGATIVE); KETONE NEGATIVE (NEGATIVE); NITRITE NEGATIVE (NEGATIVE); PROTEIN 1+ mg/dL (NEGATIVE); SPECIFIC GRAVITY 1.015 (1.005-1.020); UROBILINOGEN NORMAL (NORMAL)
[2018-02-23 21:51] LABS: BASOPHILS 0.1 % (0-2); HEMATOCRIT 30.4 % (42.0-54.0); HEMOGLOBIN 10.4 g/dL (13.5-17.5); IMMATURE GRANULOCYTES 0.6 % (0-5); LYMPHOCYTES 6.9 % (15-50); MCH 28.3 pg (26.0-34.0); MCHC 34.2 g/dL (31.0-37.0); MCV 82.8 fL (80.0-100.0); MEAN PLATELET VOLUME 9.5 fL (7.4-10.4); MONOCYTES 6.7 % (2-11); NEUTROPHILS 84.7 % (40-80); PLATELET COUNT 260 10x3/uL (130-400); RBC 3.67 10x6/uL (4.20-6.10); RDW 16.3 % (11.5-14.5); WBC 21.3 10x3/uL (4.8-10.8)
[2018-02-24] VITALS (26 sets, daily range): BP systolic 109–170; BP diastolic 57–82; Ht 170.2 cm; Wt 65.0 kg
[2018-02-24 03:51] LABS: BASOPHILS 0.1 % (0-2); EOSINOPHILS 1.3 % (0-7); HEMATOCRIT 29.8 % (42.0-54.0); HEMOGLOBIN 10.3 g/dL (13.5-17.5); IMMATURE GRANULOCYTES 0.4 % (0-5); LYMPHOCYTES 7.6 % (15-50); MCH 28.5 pg (26.0-34.0); MCHC 34.6 g/dL (31.0-37.0); MCV 82.3 fL (80.0-100.0); MEAN PLATELET VOLUME 9.4 fL (7.4-10.4); MONOCYTES 7.3 % (2-11); NEUTROPHILS 83.3 % (40-80); PLATELET COUNT 277 10x3/uL (130-400); RBC 3.62 10x6/uL (4.20-6.10); RDW 16.6 % (11.5-14.5); WBC 20.2 10x3/uL (4.8-10.8)
[2018-02-24 04:03] LABS: ALBUMIN 1.6 g/dL (3.4-5.0); ANION GAP 17.1 mmol/L (8-16); BILIRUBIN - TOTAL 0.63 mg/dL (0.2-1.3); CALCIUM 8.2 mg/dL (8.5-10.1); CARBON DIOXIDE 16.8 mmol/L (21.0-32.0); CREATININE - SERUM 2.6 mg/dL (0.6-1.3); POTASSIUM - SERUM 3.9 mmol/L (3.5-5.1); PROTEIN - SERUM 7.2 g/dL (6.4-8.2)
--- NOTE | 2018-02-24 21:25 | MORECARE ---
CASE MANAGEMENT DISCHARGE SUMMARY PATIENT: KAYLIE LONG UNIT: [id number] ADM DATE: 02/23/18 AGE: 77 : 42 SEX: M ROOM/BED: D.2315 AUTHOR: LUZ MARIA WALLS PHYSICIAN: REFERRING PHYSICIAN: ASHLEY BOWER MD DATE OF SERVICE: 02/24/18 Discharge Plan Patient Name: KAYLIE LONG [facility] [facility] 1940 Planned Disposition: Court\Law Enforcement Anticipated Discharge Date: Discharge Date: Expected LOS: Initial Reviewer: [email or web address] Initial Review Date: 02/24/2018 Generated: 02/24/18 10:25 pm Comments DCP- Discharge Planning Updated by [email or web address]: Kaylie Islas on 02/24/18 8:[address] Patient Name: KAYLIE LONG Admission Status: ER Accout number: [id number] Admission Date: 02-23-2018 : 1940 Admission Diagnosis: Attending: ASHLEY BOWER Current LOS: 1 Anticipated DC Date: Planned Disposition: Court\Law Enforcement Primary Insurance: MEDICAID SENIOR CARE PENDING Discharge Planning Comments: CM spoke with patient. [facility] discharge. Engine Repair Supervisor: Kaylie Islas Patient Name: KAYLIE LONG Page 12433 at 2125 All edits/amendments must be made on the electronic document DICTATION DATE: 02/24/182123 PLASTER MECHANIC: ABIOLA 02/24/182123 RPT#: [id number] DC DATE: STATUS: ADM IN [facility] [address] [place] [address] END OF REPORT
[2018-02-25] VITALS (18 sets, daily range): BP systolic 145–168; BP diastolic 57–80
[2018-02-25 06:12] LABS: BASOPHILS 0.1 % (0-2); EOSINOPHILS 1.8 % (0-7); HEMATOCRIT 32.8 % (42.0-54.0); IMMATURE GRANULOCYTES 0.5 % (0-5); LYMPHOCYTES 8.6 % (15-50); MCH 28.1 pg (26.0-34.0); MCHC 33.5 g/dL (31.0-37.0); MCV 83.7 fL (80.0-100.0); MEAN PLATELET VOLUME 9.4 fL (7.4-10.4); MONOCYTES 8.9 % (2-11); NEUTROPHILS 80.1 % (40-80); PLATELET COUNT 292 10x3/uL (130-400); RBC 3.92 10x6/uL (4.20-6.10); RDW 17.5 % (11.5-14.5); WBC 16.9 10x3/uL (4.8-10.8)
[2018-02-25 06:33] LABS: ALBUMIN 1.7 g/dL (3.4-5.0); ANION GAP 15.8 mmol/L (8-16); BILIRUBIN - TOTAL 0.48 mg/dL (0.2-1.3); CALCIUM 8.5 mg/dL (8.5-10.1); CARBON DIOXIDE 16.1 mmol/L (21.0-32.0); CREATININE - SERUM 2.4 mg/dL (0.6-1.3); POTASSIUM - SERUM 3.9 mmol/L (3.5-5.1); PROTEIN - SERUM 7.4 g/dL (6.4-8.2)
[2018-02-26 04:16] VITALS: BP 107/65
[2018-02-26 05:03] LABS: BASOPHILS 0.1 % (0-2); EOSINOPHILS 2.7 % (0-7); HEMATOCRIT 31.6 % (42.0-54.0); HEMOGLOBIN 10.7 g/dL (13.5-17.5); IMMATURE GRANULOCYTES 0.4 % (0-5); LYMPHOCYTES 13.8 % (15-50); MCHC 33.9 g/dL (31.0-37.0); MCV 82.7 fL (80.0-100.0); MEAN PLATELET VOLUME 9.6 fL (7.4-10.4); MONOCYTES 8.7 % (2-11); NEUTROPHILS 74.3 % (40-80); PLATELET COUNT 251 10x3/uL (130-400); RBC 3.82 10x6/uL (4.20-6.10); RDW 17.4 % (11.5-14.5); WBC 15.1 10x3/uL (4.8-10.8)
[2018-02-26 05:30] LABS: ALBUMIN 1.8 g/dL (3.4-5.0); BILIRUBIN - TOTAL 0.39 mg/dL (0.2-1.3); CALCIUM 8.4 mg/dL (8.5-10.1); CARBON DIOXIDE 15.2 mmol/L (21.0-32.0); CREATININE - SERUM 2.4 mg/dL (0.6-1.3); POTASSIUM - SERUM 4.2 mmol/L (3.5-5.1)
[2018-02-26 09:31] VITALS: BP 158/70
[2018-02-26 12:00] VITALS: BP 152/71
[2018-02-26 16:00] VITALS: BP 150/80
[2018-02-26 21:02] VITALS: BP 177/67
[2018-02-27] VITALS: BP 162/85
[2018-02-27 04:00] VITALS: BP 166/70
[2018-02-27 07:02] LABS: BASOPHILS 0.1 % (0-2); EOSINOPHILS 2.5 % (0-7); HEMATOCRIT 31.6 % (42.0-54.0); HEMOGLOBIN 10.6 g/dL (13.5-17.5); IMMATURE GRANULOCYTES 0.4 % (0-5); LYMPHOCYTES 12.4 % (15-50); MCHC 33.5 g/dL (31.0-37.0); MCV 83.6 fL (80.0-100.0); MEAN PLATELET VOLUME 9.5 fL (7.4-10.4); MONOCYTES 7.5 % (2-11); NEUTROPHILS 77.1 % (40-80); PLATELET COUNT 283 10x3/uL (130-400); RBC 3.78 10x6/uL (4.20-6.10); RDW 17.1 % (11.5-14.5); WBC 16.6 10x3/uL (4.8-10.8)
[2018-02-27 07:17] LABS: ALBUMIN 1.7 g/dL (3.4-5.0); ANION GAP 14.9 mmol/L (8-16); BILIRUBIN - TOTAL 0.42 mg/dL (0.2-1.3); CARBON DIOXIDE 18.6 mmol/L (21.0-32.0); CREATININE - SERUM 2.3 mg/dL (0.6-1.3); POTASSIUM - SERUM 3.5 mmol/L (3.5-5.1); PROTEIN - SERUM 7.1 g/dL (6.4-8.2)
[2018-02-27 09:39] VITALS: BP 167/81
[2018-02-27 13:21] VITALS: BP 176/72
[2018-02-27 17:20] VITALS: BP 173/69
[2018-02-27 20:46] VITALS: BP 166/69
[2018-02-28 00:08] VITALS: BP 156/61
[2018-02-28 04:22] VITALS: BP 162/67
[2018-02-28 07:35] LABS: BASOPHILS 0.1 % (0-2); EOSINOPHILS 4.1 % (0-7); HEMATOCRIT 31.3 % (42.0-54.0); HEMOGLOBIN 10.5 g/dL (13.5-17.5); IMMATURE GRANULOCYTES 0.3 % (0-5); LYMPHOCYTES 12.8 % (15-50); MCH 28.2 pg (26.0-34.0); MCHC 33.5 g/dL (31.0-37.0); MCV 84.1 fL (80.0-100.0); MEAN PLATELET VOLUME 9.5 fL (7.4-10.4); MONOCYTES 8.3 % (2-11); NEUTROPHILS 74.4 % (40-80); PLATELET COUNT 309 10x3/uL (130-400); RBC 3.72 10x6/uL (4.20-6.10); RDW 17.2 % (11.5-14.5); WBC 15.1 10x3/uL (4.8-10.8)
[2018-02-28 08:40] VITALS: BP 162/67
[2018-02-28 08:47] LABS: ALBUMIN 1.7 g/dL (3.4-5.0); ANION GAP 13.6 mmol/L (8-16); BILIRUBIN - TOTAL 0.43 mg/dL (0.2-1.3); CALCIUM 8.2 mg/dL (8.5-10.1); CARBON DIOXIDE 19.7 mmol/L (21.0-32.0); CREATININE - SERUM 2.2 mg/dL (0.6-1.3); POTASSIUM - SERUM 3.3 mmol/L (3.5-5.1); PROTEIN - SERUM 7.1 g/dL (6.4-8.2)
[2018-02-28 12:40] VITALS: BP 154/61
[2018-02-28 16:00] VITALS: BP 151/67
[2018-02-28 20:00] VITALS: BP 153/69
[2018-03-01] VITALS: BP 171/72
[2018-03-01 04:00] VITALS: BP 154/68
[2018-03-01 07:12] LABS: BASOPHILS 0.1 % (0-2); EOSINOPHILS 1.6 % (0-7); HEMATOCRIT 32.7 % (42.0-54.0); HEMOGLOBIN 10.9 g/dL (13.5-17.5); IMMATURE GRANULOCYTES 0.5 % (0-5); LYMPHOCYTES 9.2 % (15-50); MCH 28.3 pg (26.0-34.0); MCHC 33.3 g/dL (31.0-37.0); MCV 84.9 fL (80.0-100.0); MEAN PLATELET VOLUME 9.9 fL (7.4-10.4); MONOCYTES 8.1 % (2-11); NEUTROPHILS 80.5 % (40-80); PLATELET COUNT 326 10x3/uL (130-400); RBC 3.85 10x6/uL (4.20-6.10); WBC 17.4 10x3/uL (4.8-10.8)
[2018-03-01 07:25] LABS: ALBUMIN 1.8 g/dL (3.4-5.0); ANION GAP 14.8 mmol/L (8-16); BILIRUBIN - TOTAL 0.36 mg/dL (0.2-1.3); CALCIUM 8.2 mg/dL (8.5-10.1); CARBON DIOXIDE 19.5 mmol/L (21.0-32.0); CREATININE - SERUM 2.2 mg/dL (0.6-1.3); POTASSIUM - SERUM 3.3 mmol/L (3.5-5.1); PROTEIN - SERUM 7.6 g/dL (6.4-8.2)
[2018-03-01 08:51] VITALS: BP 143/57
[2018-03-01 16:00] VITALS: BP 144/58
[2018-03-01 21:49] LABS: APPEARANCE HAZY (CLEAR); BILIRUBIN NEGATIVE (NEGATIVE); COLOR YELLOW (YELLOW); GLUCOSE 100 mg/dL (NEGATIVE); KETONE NEGATIVE (NEGATIVE); NITRITE NEGATIVE (NEGATIVE); PROTEIN TRACE mg/dL (NEGATIVE); UROBILINOGEN NORMAL (NORMAL)
[2018-03-01 21:50] LABS: BACTERIA MANY /hpf (NONE SEEN); RED CELLS - URINE OCC /hpf (0-5); WHITE CELLS - URINE >50 /hpf (0-5)
[2018-03-01 21:55] VITALS: BP 137/54
[2018-03-02 02:09] VITALS: BP 145/62
[2018-03-02 05:15] VITALS: BP 151/65
[2018-03-02 06:28] LABS: ANION GAP 13.6 mmol/L (8-16); CALCIUM 8.3 mg/dL (8.5-10.1); CARBON DIOXIDE 19.6 mmol/L (21.0-32.0); CREATININE - SERUM 2.1 mg/dL (0.6-1.3); POTASSIUM - SERUM 3.2 mmol/L (3.5-5.1)
[2018-03-02 07:18] LABS: BASOPHILS 0.2 % (0-2); EOSINOPHILS 6.7 % (0-7); HEMATOCRIT 29.1 % (42.0-54.0); HEMOGLOBIN 9.7 g/dL (13.5-17.5); IMMATURE GRANULOCYTES 0.3 % (0-5); LYMPHOCYTES 13.6 % (15-50); MCHC 33.3 g/dL (31.0-37.0); MCV 84.1 fL (80.0-100.0); MEAN PLATELET VOLUME 9.6 fL (7.4-10.4); MONOCYTES 9.6 % (2-11); NEUTROPHILS 69.6 % (40-80); PLATELET COUNT 310 10x3/uL (130-400); RBC 3.46 10x6/uL (4.20-6.10); RDW 16.9 % (11.5-14.5)
[2018-03-02 08:10] VITALS: BP 140/59
[2018-03-02 15:17] LABS: SPE - A/G RATIO 0.5 (0.7-1.7); SPE - ALBUMIN 2.4 g/dL (2.9-4.4); SPE - ALPHA-1 GLOBULIN 0.3 g/dL (0.0-0.4); SPE - ALPHA-2 GLOBULIN 0.9 g/dL (0.4-1.0); SPE - BETA GLOBULIN 0.9 g/dL (0.7-1.3); SPE - GAMMA GLOBULIN 2.5 g/dL (0.4-1.8); SPE - M-SPIKE Not Observed g/dL (Not Observed)
[2018-03-02 16:09] VITALS: BP 140/80
[2018-03-02 20:00] VITALS: BP 128/51
[2018-03-03] VITALS: BP 161/66
[2018-03-03 04:00] VITALS: BP 138/63
[2018-03-03 07:54] LABS: BASOPHILS 0.2 % (0-2); EOSINOPHILS 5.8 % (0-7); HEMATOCRIT 30.2 % (42.0-54.0); HEMOGLOBIN 10.1 g/dL (13.5-17.5); IMMATURE GRANULOCYTES 0.3 % (0-5); LYMPHOCYTES 13.3 % (15-50); MCHC 33.4 g/dL (31.0-37.0); MCV 83.7 fL (80.0-100.0); MEAN PLATELET VOLUME 9.6 fL (7.4-10.4); MONOCYTES 9.8 % (2-11); NEUTROPHILS 70.6 % (40-80); PLATELET COUNT 306 10x3/uL (130-400); RBC 3.61 10x6/uL (4.20-6.10); RDW 16.5 % (11.5-14.5)
[2018-03-03 08:29] VITALS: BP 141/63
[2018-03-03 11:42] VITALS: BP 139/68
[2018-03-03 16:13] VITALS: BP 132/64
[2018-03-03 20:28] VITALS: BP 133/54
[2018-03-04 00:30] VITALS: BP 159/60
[2018-03-04 04:58] VITALS: BP 146/60
[2018-03-04 07:35] LABS: BASOPHILS 0.2 % (0-2); EOSINOPHILS 3.4 % (0-7); HEMATOCRIT 31.7 % (42.0-54.0); HEMOGLOBIN 10.5 g/dL (13.5-17.5); IMMATURE GRANULOCYTES 0.3 % (0-5); LYMPHOCYTES 12.5 % (15-50); MCH 27.8 pg (26.0-34.0); MCHC 33.1 g/dL (31.0-37.0); MCV 83.9 fL (80.0-100.0); MEAN PLATELET VOLUME 9.2 fL (7.4-10.4); MONOCYTES 9.3 % (2-11); NEUTROPHILS 74.3 % (40-80); PLATELET COUNT 310 10x3/uL (130-400); RBC 3.78 10x6/uL (4.20-6.10); RDW 16.4 % (11.5-14.5); WBC 13.3 10x3/uL (4.8-10.8)
[2018-03-04 08:05] LABS: ANION GAP 17.1 mmol/L (8-16); CALCIUM 8.8 mg/dL (8.5-10.1); CARBON DIOXIDE 19.6 mmol/L (21.0-32.0); CREATININE - SERUM 2.2 mg/dL (0.6-1.3); POTASSIUM - SERUM 3.7 mmol/L (3.5-5.1)
[2018-03-04 08:34] VITALS: BP 147/57
[2018-03-04] MEDS ORDERED: DIFLUCAN100 MG PO (10:57)
[2018-03-04] MEDS ORDERED: TOPROL XL25 MG PO (10:59)
[2018-03-04] MEDS ORDERED: SODIUM BICARBO650 MG PO (11:00)
[2018-03-04] MEDS ORDERED: CIPRO500 MG PO (11:00)
--- NOTE | 2018-03-07 07:02 | MORECARE ---
CASE MANAGEMENT DISCHARGE SUMMARY PATIENT: KAYLIE LONG UNIT: [id number] ADM DATE: 02/23/18 AGE: 77 : 44 SEX: M ROOM/BED: D.2237 AUTHOR: LUZ MARIA WALLS PHYSICIAN: REFERRING PHYSICIAN: ASHLEY BOWER MD DATE OF SERVICE: 03/07/18 Discharge Plan Patient Name: KAYLIE LONG Facility: [facility]:[place] : 1940 Planned Disposition: Court\Law Enforcement Anticipated Discharge Date: Discharge Date: 03/04/2018 Expected LOS: 0 Initial Reviewer: [id number] Initial Review Date: 02/24/2018 Generated: 03/07/18 8:01 am Comments DCP- Discharge Planning Updated by [email or web address]: Kaylie Islas on 02/24/18 8:[address] Patient Name: KAYLIE LONG Admission Status: ER Accout number: [id number] Admission Date: 02-23-2018 : 1940 Admission Diagnosis: Attending: ASHLEY BOWER Current LOS: 1 Anticipated DC Date: Planned Disposition: Court\Law Enforcement Primary Insurance: MEDICAID DETENTION PENDING Discharge Planning Comments: CM spoke with patient. [facility] discharge. Architectural Draftsperson: Kaylie Islas Last DP export: 02/24/18 8:25 Patient Name: KAYLIE LONG Page [id number] at [id number] All edits/amendments must be made on the electronic document DICTATION DATE: 03/07/18700 CLIENT TECHNICAL PROFESSIONAL: ABIOLA 03/07/18700 RPT#: [id number] DC DATE:03/04/18 STATUS: DIS IN [facility] [address] [facility] [place] [address] END OF REPORT
== END 2018-03-04 14:33 | DRG 371 ==
LOC: D.ER 12:19 → D.EDHOLD 14:11 → D.MS 14:11 → D.ICU 14:11 → D.MS 02-25 15:56
PROVIDERS: Family Medicine; Internal Medicine Gastroenterology; Internal Medicine Nephrology; Student in an Organized Health Care Education/Training Program; ADMIT Emergency Medicine
DX: A04.5 Campylobacter enteritis (principal); J18.9 Pneumonia, unspecified organism; N39.0 Urinary tract infection, site not specified; I13.0 Hypertensive heart and chronic kidney disease with heart failure and stage 1 through stage 4 chronic kidney disease, or unspecified chronic kidney disease; N17.9 Acute kidney failure, unspecified; D62 Acute posthemorrhagic anemia; I42.9 Cardiomyopathy, unspecified; E87.2 Acidosis; E87.1 Hypo-osmolality and hyponatremia; K92.2 Gastrointestinal hemorrhage, unspecified; K52.9 Noninfective gastroenteritis and colitis, unspecified; Z89.612 Acquired absence of left leg above knee; Z89.611 Acquired absence of right leg above knee; F03.90 Unspecified dementia, unspecified severity, without behavioral disturbance, psychotic disturbance, mood disturbance, and anxiety; E11.22 Type 2 diabetes mellitus with diabetic chronic kidney disease; N18.9 Chronic kidney disease, unspecified; I50.9 Heart failure, unspecified; E03.9 Hypothyroidism, unspecified; I25.10 Atherosclerotic heart disease of native coronary artery without angina pectoris; I73.9 Peripheral vascular disease, unspecified; E11.65 Type 2 diabetes mellitus with hyperglycemia; E11.40 Type 2 diabetes mellitus with diabetic neuropathy, unspecified; Z87.891 Personal history of nicotine dependence; B19.20 Unspecified viral hepatitis C without hepatic coma; K80.20 Calculus of gallbladder without cholecystitis without obstruction; D72.829 Elevated white blood cell count, unspecified